=== PATIENT | female | born 1960 | race Caucasian/White ===

== ENCOUNTER 2019-11-22 03:45 | Inpatient (IN) | payer OTHER, SELFPAY ==
[2019-11-22] MEDS ORDERED: hydrALAZINE 20 MG/ML VIAL ONE (04:09)
[2019-11-22] MEDS ORDERED: Nitroglycerin 2% Ointment 1 INCH/1 GM Packet ONE ×2 (04:45→04:47)
[2019-11-22 04:49] LABS: #Eosinphils 0.1 thou/uL (0.0-0.7); #Lymphocytes 1.6 thou/uL (1.20-3.40); #Monocytes 0.7 thou/uL (0.11-0.59); #Neutrophils 7.1 thou/uL (1.40-6.50); %Eosinophils 1.3 % (0.0-10.0); %Lymphocytes 16.3 % (21.0-51.0); %Monocytes 7.3 % (0.0-10.0); %Neutrophils 75.1 % (42.0-75.0); Hemoglobin 12.3 g/dL (12.0-16.0); Mean Corpuscular HGB CONC 33.2 g/dL (32.0-36.0); Mean Corpuscular Hemoglobin 29.5 pg (27.0-31.0); Mean Platelet Volume 7.8 fL (7.4-10.4); Platelet Count 302 thou/uL (130-400); RBC Distribution Width 14.1 % (11.5-14.5); Red Blood Cell (RBC) Count 4.17 mill/uL (4.20-5.40); White Blood Cell (WBC) Count 9.5 thou/uL (4.8-10.8)
[2019-11-22 05:06] LABS: ALT (SGPT) 12 U/L (8-55); AST (SGOT) 10 U/L (5-34); Albumin 3.3 g/dL (3.5-5.0); Alkaline Phosphatase 163 U/L (40-110); Anion Gap 17 mmol/L (10-20); BUN (Urea Nitrogen) 21 mg/dL (9.8-20.1); Bilirubin, Total 0.5 mg/dL (0.2-1.2); Calc. Creatinine Clearance 0 mL/min (70-130); Calcium 9.2 mg/dL (7.8-10.44); Carbon Dioxide 21 mmol/L (22-29); Chloride 104 mmol/L (98-107); Estimated GFR-MDRD 24; Globulin 3.7 g/dL (2.4-3.5); Glucose 194 mg/dL (70-105); Potassium 3.5 mmol/L (3.5-5.1); Sodium 138 mmol/L (136-145)
[2019-11-22] MEDS ORDERED: Furosemide 40 MG/4 ML VIAL ONE (06:03)
[2019-11-22] MEDS ORDERED: Aspirin 325 MG TAB ONE (06:32)
--- NOTE | 2019-11-22 07:38 | RAD ---
PORTABLE CHEST 1 VIEW: DATE: 11/21/2019. TIME: 2:42 AM. HISTORY: Dyspnea. FINDINGS/IMPRESSION: There are changes of median sternotomy. The heart size is normal. There are patchy infiltrates in t he lung delgado bilaterally without pneumothoraces or large effusions. Findings are suspicious for pn eumonia. POS: [facility]
[2019-11-22] MEDS ORDERED: Furosemide 40 MG/4 ML VIAL SLOW IVP SCH (08:30)
[2019-11-22 08:33] LABS: Troponin I 0.033 ng/mL (< 0.028)
[2019-11-22 10:58] LABS: Troponin I 0.036 ng/mL (< 0.028)
[2019-11-22] MEDS: Aspirin 81 mg Enteric Coated Tablet PO SCH (12:29)
[2019-11-22] MEDS: Metoprolol Tartrate 25 MG TAB PO SCH ×2 (12:29→21:25)
[2019-11-22] MEDS: Amlodipine 10 MG TAB PO SCH (12:29)
[2019-11-22] MEDS: Enoxaparin Sodium 30 MG/0.3 ML SYRINGE SC SCH (12:30)
--- NOTE | 2019-11-22 15:05 | PDOC.HHP ---
Hospitalist HPI - History of Present Illness shortness of breath History of Present Illness: 59yo F w/ MHx of CABGx4 (02/2019), HFrEF presents with shortness of breath for 3 days. Underwent CABG in 02/2019 but inconsistent with medications including torsemide due to lifestyle and issues with insurance. 3 days ago, developed progresively worsening shortness of breath associated with orthopnea and paroxysmal nocturnal dyspnea so presented to the ED On encounter, laying comfortably in bed and endorses improved shortness of breath. Denies chills, night sweats, cough, pleuritic pain, abdominal pain, RUQ pain, change in skin color, dysuria, odynuria, blood in urine ED Course: In the ED, hypoxic respiratory distress, lower extremity pitting edema, grossly elevated blood pressure, reduced renal function, and CXR c/w with pulmonary edema. She was admitted for further management Hospitalist ROS - Review of Systems All other systems reviewed; all pertinent +/- noted in HPI/Subj - Medication Medications: Active Medications Generic Name Dose Route Start Last Admin Trade Name Shakaq PRN Reason Stop Dose Admin Amlodipine Besylate 10 mg 11/22/19 09:00 11/22/19 12:29 Norvasc PO 10 mg DAILY LOLIS Administration Aspirin 81 mg 11/22/19 09:00 11/22/19 12:29 Ecotrin PO Not Given DAILY LOLIS Enoxaparin Sodium 30 mg 11/22/19 09:00 11/22/19 12:30 Lovenox SC 30 mg 0900 LOLIS Administration Metoprolol Tartrate 12.5 mg 11/22/19 09:00 11/22/19 12:29 Lopressor PO 12.5 mg BID LOLIS Administration Pantoprazole Sodium 20 mg 11/22/19 09:00 11/22/19 12:29 Protonix PO 20 mg DAILY LOLIS Administration Sertraline HCl 100 mg 11/22/19 09:00 11/22/19 12:29 Zoloft PO 100 mg DAILY LOLIS Administration Sodium Chloride 10 ml 11/22/19 09:00 11/22/19 12:30 Flush - Normal Saline IVF 10 ml Q12HR LOLIS Administration Hospitalist History - Past Medical History Source: patient (s/p CABG (02/2019)) Cardiac: reports: CAD, CHF, HTN Pulmonary: denies: COPD Hepatobiliary: denies: Cirrhosis Endocrine: reports: Diabetes - Past Surgical History Past Surgical History: reports: CABG, Hysterectomy - Family History Family History: reports: diabetes mellitus - Social History Smoking Status: Smokes 11 or more cig/day (40 pack years) Tobacco Type: cigarettes Alcohol: reports: Occassional Drugs: reports: none Living Situation: With Family Activity level: independent ambulation - Exam General Appearance: NAD, awake alert Neck: supple, symmetric, no JVD, no thyromegaly, no lymphadenopathy, no carotid bruit Heart: RRR, no murmur, no gallops, no rubs Respiratory: no wheezes, no rales, no ronchi Respiratory - other findings: bibasilar inspiratory rales Gastrointestinal: soft, non-tender, non-distended, normal bowel sounds, no palpable masses, no hepatomegaly, no splenomegaly, no bruit Extremities: 2+ LE edema Extremities - other findings: to knee level Psychiatric: normal affect, normal behavior, A&O x 3 Hospitalist Results - Labs Result Diagrams: 11/22/19 04:20 11/22/19 04:20 Lab results: WBC 9.5 thou/uL (4.8-10.8) 11/22/19 04:20 Hgb 12.3 g/dL (12.0-16.0) 11/22/19 04:20 Hct 37.1 % (36.0-47.0) 11/22/19 04:20 MCV 89.0 fL (78.0-98.0) 11/22/19 04:20 Plt Count 302 thou/uL (130-400) 11/22/19 04:20 Neutrophils % 75.1 % (42.0-75.0) H 11/22/19 04:20 Sodium 138 mmol/L (136-145) 11/22/19 04:20 Potassium 3.5 mmol/L (3.5-5.1) 11/22/19 04:20 Chloride 104 mmol/L (98-107) 11/22/19 04:20 Carbon Dioxide 21 mmol/L (22-29) L 11/22/19 04:20 BUN 21 mg/dL (9.8-20.1) H 11/22/19 04:20 Creatinine 2.09 mg/dL (0.6-1.1) H 11/22/19 04:20 Glucose 194 mg/dL (70-105) H 11/22/19 04:20 Lactic Acid 1.6 mmol/L (0.5-2.2) 11/22/19 05:48 Calcium 9.2 mg/dL (7.8-10.44) 11/22/19 04:20 Total Bilirubin 0.5 mg/dL (0.2-1.2) 11/22/19 04:20 AST 10 U/L (5-34) 11/22/19 04:20 ALT 12 U/L (8-55) 11/22/19 04:20 Alkaline Phosphatase 163 U/L (40-110) H 11/22/19 04:20 CK-MB (CK-2) 1.0 ng/mL (0-6.6) 11/22/19 04:20 Troponin I 0.036 ng/mL (< 0.028) H 11/22/19 10:16 B-Natriuretic Peptide Less than 10.0 pg/mL (0-100) 11/22/19 04:20 Serum Total Protein 7.0 g/dL (6.0-8.3) 11/22/19 04:20 Albumin 3.3 g/dL (3.5-5.0) L 11/22/19 04:20 - EKG Interpretation EKG: no acute ishcemic changes - Radiology Interpretation Chest x-ray Status: image reviewed by me (bilateral patchy infiltrates c/w pulmonary edema) Hospitalist H&P A/P - Problem (1) Hypertensive emergency Code(s): I16.1 - HYPERTENSIVE EMERGENCY Status: Acute (2) Flash pulmonary edema Code(s): J81.0 - ACUTE PULMONARY EDEMA Status: Acute (3) Nonadherence to medication Code(s): Z91.14 - PATIENT'S OTHER NONCOMPLIANCE WITH MEDICATION REGIMEN Status : Acute (4) Hx of CABG Status: Acute (5) Type 2 diabetes mellitus Status: Acute - Plan Plan: #hypertensive emergency -> flash pulmonary edema, decompenated HF, JHONNY -due to nonadherence (insurance, lifestyle problems) -responded promptly to diuresis -Trop -ve, EKG showing no acute ischemic changes * diuresis, strict I/O * Echo #JHONNY/CKD -no data of previous renal function -likely prerenal/intrarenal due to HF/hypertensive emergency -diurese; follow renal function #HFrEF -may be result of hypertensive emergency or chronic -echo #T2DM mild sliding #Dispo/PPx Full code DVT PPx: lovenox GI PPx: not indicated ELOS: 2 midnights
[2019-11-22] MEDS ORDERED: Torsemide 20 MG TAB PO SCH (15:15)
[2019-11-22] MEDS ORDERED: Dextrose 50% Abboject 50 ML SYRINGE SLOW IVP PRN (15:33)
[2019-11-22] MEDS ORDERED: Dextrose 5% in Water 1,000 ML IV PRN (15:33)
[2019-11-22] MEDS: hydrALAZINE 25 MG TAB PO SCH ×2 (15:59→21:28)
[2019-11-22] MEDS: Potassium Chloride 20 MEQ TAB PO SCH ×2 (16:00→21:24)
[2019-11-22 17:20] LABS: SARS-CoV-2 MS2 Positive; SARS-CoV-2 N Gene Negative; SARS-CoV-2 S Gene Negative; SARS-CoV-2 orf1ab Negative
[2019-11-22] MEDS: Rosuvastatin 20 MG TAB PO SCH (21:25)
[2019-11-23 05:18] LABS: #Eosinphils 0.1 thou/uL (0.0-0.7); #Lymphocytes 1.4 thou/uL (1.20-3.40); #Monocytes 0.5 thou/uL (0.11-0.59); #Neutrophils 6.1 thou/uL (1.40-6.50); %Basophils 0.2 % (0.0-1.0); %Eosinophils 1.8 % (0.0-10.0); %Lymphocytes 17.1 % (21.0-51.0); %Monocytes 6.6 % (0.0-10.0); %Neutrophils 74.4 % (42.0-75.0); Hemoglobin 10.9 g/dL (12.0-16.0); Mean Corpuscular HGB CONC 33.8 g/dL (32.0-36.0); Mean Corpuscular Volume 88.8 fL (78.0-98.0); Mean Platelet Volume 7.6 fL (7.4-10.4); Platelet Count 273 thou/uL (130-400); RBC Distribution Width 14.1 % (11.5-14.5); Red Blood Cell (RBC) Count 3.63 mill/uL (4.20-5.40); White Blood Cell (WBC) Count 8.2 thou/uL (4.8-10.8)
[2019-11-23 05:39] LABS: Anion Gap 16 mmol/L (10-20); BUN (Urea Nitrogen) 24 mg/dL (9.8-20.1); Calc. Creatinine Clearance 32 mL/min (70-130); Calcium 8.9 mg/dL (7.8-10.44); Carbon Dioxide 22 mmol/L (22-29); Chloride 104 mmol/L (98-107); Estimated GFR-MDRD 25; Glucose 129 mg/dL (70-105); Magnesium 1.7 mg/dL (1.6-2.6); Potassium 3.9 mmol/L (3.5-5.1); Sodium 138 mmol/L (136-145)
[2019-11-23] MEDS: Enoxaparin Sodium 30 MG/0.3 ML SYRINGE SC SCH (08:35)
[2019-11-23] MEDS: Amlodipine 10 MG TAB PO SCH (08:36)
[2019-11-23] MEDS: Torsemide 20 MG TAB PO SCH (08:36)
[2019-11-23] MEDS: Metoprolol Tartrate 25 MG TAB PO SCH (08:36)
[2019-11-23] MEDS: hydrALAZINE 25 MG TAB PO SCH ×3 (08:36→20:20)
[2019-11-23] MEDS: Aspirin 81 mg Enteric Coated Tablet PO SCH (08:37)
[2019-11-23] MEDS: HumaLOG 300 UNITS/3 ML VIAL SC PRN ×2 (11:44→16:25)
--- NOTE | 2019-11-23 13:24 | EKG ---
Test Reason : Blood Pressure : / mmHG Vent. Rate : 082 BPM Atrial Rate : 082 BPM P-R Int : 132 ms QRS Dur : 110 ms QT Int : 418 ms P-R-T Axes : 002 042 115 degrees QTc Int : 488 ms Normal sinus rhythm Possible Left atrial enlargement Incomplete left bundle branch block Left ventricular hypertrophy with repolarization abnormality Prolonged QT Abnormal ECG Confirmed by FRANSISCO MAGALLANES ([id number]), communications editor LUDY GÓMEZ ([id number]) on 11/23/2019 1:23:24 PM Referred By: Confirmed By:FRANSISCO MAGALLANES
--- NOTE | 2019-11-23 15:23 | PDOC.HOSPP ---
- Subjective Encounter Date: 11/23/19 Encounter Time: 09:00 Subjective: no overnight events. This morning, feels well and has no complaints. Shortness of breath resolved, lower extremity edema improved - Objective Vital Signs & Weight: Vital Signs (12 hours) Temp Pulse Pulse Pulse Resp BP BP 11/23/19 11:19 97.8 F 63 18 11/23/19 10:42 61 65 160/77 H 169/79 H 11/23/19 10:10 62 63 156/77 H 154/72 H 11/23/19 08:36 66 11/23/19 08:00 11/23/19 07:21 98.5 F 66 22 H BP Pulse Ox Pulse Ox 11/23/19 11:19 164/77 H 96 11/23/19 10:42 98 11/23/19 10:10 11/23/19 08:36 11/23/19 08:00 94 L 11/23/19 07:21 169/81 H 94 L Weight Weight 144 lb 9.6 oz I&O: 11/22/19 11/23/19 11/24/19 06:59 06:59 06:59 Intake Total 660 Output Total 1725 Balance -1065 Result Diagrams: 11/23/19 04:56 11/23/19 04:56 Additional Labs: Accuchecks 11/23/19 11/23/19 11/22/19 10:43 05:23 21:27 POC Glucose 241 H 181 H 172 H 11/22/19 16:54 POC Glucose 159 H Hospitalist ROS - Review of Systems Constitutional: denies: fever, chills, sweats, weakness, malaise, other Respiratory: denies: cough, dry, shortness of breath, hemoptysis, SOB with excertion, pleuritic pain, sputum, wheezing, other Cardiovascular: reports: orthopnea, edema. denies: chest pain, palpitations, paroxysmal noc. dyspnea, light headedness Gastrointestinal: denies: nausea, vomiting, abdominal pain, diarrhea, constipation, melena, hematochezia, other - Medication Medications: Active Medications Generic Name Dose Route Start Last Admin Trade Name Freq PRN Reason Stop Dose Admin Amlodipine Besylate 10 mg 11/22/19 09:00 11/23/19 08:36 Norvasc PO 10 mg DAILY LOLIS Administration Aspirin 81 mg 11/22/19 09:00 11/23/19 08:37 Ecotrin PO 81 mg DAILY LOLIS Administration Enoxaparin Sodium 30 mg 11/22/19 09:00 11/23/19 08:35 Lovenox SC 30 mg 0900 LOLIS Administration Hydralazine HCl 25 mg 11/22/19 15:00 11/23/19 08:36 Apresoline PO 25 mg TID LOLIS Administration Insulin Human Lispro 0 units 11/22/19 15:33 11/23/19 11:44 Humalog SC 3 unit .MILD SLIDING SCALE PRN Administration Mild Correctional Scale Pantoprazole Sodium 20 mg 11/22/19 09:00 11/23/19 08:36 Protonix PO 20 mg DAILY LOLIS Administration Rosuvastatin Calcium 40 mg 11/22/19 21:00 11/22/19 21:25 Crestor PO 40 mg HS LOLIS Administration Sertraline HCl 100 mg 11/22/19 09:00 11/23/19 08:36 Zoloft PO 100 mg DAILY LOLIS Administration Sodium Chloride 10 ml 11/22/19 09:00 11/23/19 08:37 Flush - Normal Saline IVF 10 ml Q12HR LOLIS Administration Torsemide 20 mg 11/23/19 09:00 11/23/19 08:36 Demadex PO 20 mg DAILY LOLIS Administration - Exam General Appearance: NAD, awake alert Heart: RRR, no murmur, no gallops, no rubs Respiratory: CTAB, no wheezes, no rales, no ronchi Gastrointestinal: soft, non-tender, non-distended, normal bowel sounds Extremities: 2+ LE edema Extremities - other findings: improved Psychiatric: normal affect, normal behavior, A&O x 3 Hosp A/P (1) Nonadherence to medication Code(s): Z91.14 - PATIENT'S OTHER NONCOMPLIANCE WITH MEDICATION REGIMEN Status : Acute (2) Hx of CABG Status: Acute (3) Type 2 diabetes mellitus Status: Acute (4) Chronic heart failure Code(s): I50.9 - HEART FAILURE, UNSPECIFIED Status: Acute - Plan #poorly controlled heart failure due to medication nonadherence * improving * no insurance; contacted CM to arrange for aid with medications * COVID ruled out #JHONNY/CKD -no baseline level -continue to follow ELOS: pending CM for medication subsidization
[2019-11-23] MEDS: Carvedilol 6.25 MG TAB PO SCH (16:25)
[2019-11-23] MEDS: Rosuvastatin 20 MG TAB PO SCH (20:19)
[2019-11-23] MEDS ORDERED: HumaLOG 300 UNITS/3 ML VIAL SC PRN (22:23)
[2019-11-24 03:37] VITALS: BMI 23.1
[2019-11-24] MEDS: hydrALAZINE 25 MG TAB PO SCH (08:01)
[2019-11-24] MEDS: Aspirin 81 mg Enteric Coated Tablet PO SCH (08:01)
[2019-11-24] MEDS: Carvedilol 6.25 MG TAB PO SCH (08:03)
[2019-11-24] MEDS: Amlodipine 10 MG TAB PO SCH (08:03)
[2019-11-24] MEDS: Enoxaparin Sodium 30 MG/0.3 ML SYRINGE SC SCH (08:04)
[2019-11-24] MEDS: Torsemide 20 MG TAB PO SCH (08:04)
[2019-11-24 13:46] VITALS: BP 140/67; TEMP 96.9
--- NOTE | 2019-11-25 14:36 | DIS ---
DATE OF ADMISSION: 11/22/2019 DATE OF DISCHARGE: 11/24/2019 HOSPITAL COURSE: Ms. Bowers is a 59-year-old female with a medical history of coronary artery disease status post CABG x4, the last one being in February 2019 and heart failure with reduced ejection fraction, who presented with shortness of breath for 3 days. The patient endorsed nonadherence to her medications including heart failure and blood pressure medications. She was diagnosed with hypertensive emergency and flash pulmonary edema due to nonadherence to medications. The patient's blood pressure was promptly reduced and she was diuresed. Symptoms resolved on the day following admission with the exception of her acute kidney injury, which improved over her inpatient stay. Considering the patient does not have insurance, foster care case manager was consulted and it was recommended that the patient sees a good family practice physician card pending followup with [facility] on Monday in order to continue with assistance to the patient. DISCHARGE MEDICATIONS: New medications: Coreg 12.5 b.i.d. Continued medications: 1. Potassium. 2. Rosuvastatin. 3. Pantoprazole. 4. Torsemide. 5. Sertraline. 6. Aspirin. 7. Amlodipine. Discontinued medications: Metoprolol. Job ID: [id number]
--- NOTE | 2019-11-26 04:50 | PQF ---
WONROYALRYLEY, HOSEA [id number] CLINICAL DOCUMENTATION CLARIFICATION FORM: POST DISCHARGE Addendum to original discharge summary date: ____ Late entry note date: __ DATE: 11/26/19 ATTN: Hosea Clark Please exercise your independent, professional judgment in responding to the clarification form. Clinical indicators are provided on the bottom of this form for your review Can you please further clarify the etiology of SOB? Please check appropriate box(s): [ x ] Acute on chronic systolic congestive heart failure [ ] Acute hypoxic respiratory failure [ ] Pneumonia [ ] SOB due to all diagnosis above [ ] Other diagnosis please specify [ ] Unable to determine For continuity of documentation, please document condition throughout progress notes and discharge summary. Thank You. CLINICAL INDICATORS - SIGNS / SYMPTOMS / LABS H and P pg.1- HFrEF presents with shortness of breath for 3 days H and P pg.1- hypoxic respiratory distress, lower extremity pitting edema H and P pg.1- CXR c/w pulmonary edema Laboratory- BNP less than 10 H and P pg.5- flash pulmonary edema, compensated HF Chest X ray- Findings are suspicious for pneumonia Hospitalist PN pg.5- Chronic heart failure Hospitalist PN pg.5-poorly controlled heart failure due to medication non adherence Echocardiogram- EF 35-40% RISK FACTORS Hypertensive emergency- H and P pg.5 Non adherence to medication-H and P pg.5 DM-H and P pg.5 JHONNY/CKD-H and P pg.5 Smoker ED Notes 11/21 TREATMENTS: Chest X ray 11/21 Electrocardiogram, 11/21 Echocardiogram 11/22 IV Fluids- MAR Levaquin 750mg IV- MAR Furosemide Lasix 40mg IV-MAR O2 supplementation-HP 11/21 (This form is maintained as a part of the permanent medical record) 2014 [employer]. All Rights Reserved [place] TIARA
== END 2019-11-24 14:19 | disposition home or self-care (01) | DRG 291 ==
LOC: ERS 03:45 → 2SW 06:08 → OBSVTOIN 06:08
PROVIDERS: ADMIT Internal Medicine; ATTEND Internal Medicine
DX: I13.0 Hypertensive heart and chronic kidney disease with heart failure and stage 1 through stage 4 chronic kidney disease, or unspecified chronic kidney disease (principal); I50.23 Acute on chronic systolic (congestive) heart failure; I16.1 Hypertensive emergency; N17.9 Acute kidney failure, unspecified; E11.22 Type 2 diabetes mellitus with diabetic chronic kidney disease; E78.5 Hyperlipidemia, unspecified; N18.9 Chronic kidney disease, unspecified; F17.210 Nicotine dependence, cigarettes, uncomplicated; Z20.828 Contact with and (suspected) exposure to other viral communicable diseases; Z95.1 Presence of aortocoronary bypass graft; Z90.710 Acquired absence of both cervix and uterus; Z79.82 Long term (current) use of aspirin; Z79.899 Other long term (current) drug therapy; Z91.14 Patient's other noncompliance with medication regimen
CPT/HCPCS: 36415; 36416; 71045; 80048; 80053; 82553; 83605; 83735; 83880; 84484; 85025; 87040; 87635; 93005; 93306; 96365; 96375; J0360; J1650; J1940; J1956; U0003

== ENCOUNTER 2019-12-08 07:15 | Emergency (ER) | payer SELFPAY ==
[2019-12-08] MEDS ORDERED: Nitroglycerin 0.4 MG TAB 1 EACH ONE (07:34)
[2019-12-08] MEDS ORDERED: Furosemide 40 MG/4 ML VIAL ONE (07:34)
[2019-12-08] MEDS ORDERED: Nitroglycerin 2% Ointment 1 INCH/1 GM Packet ONE (07:34)
[2019-12-08] MEDS ORDERED: Aspirin Chewable 81 MG TAB ONE (07:34)
[2019-12-08 07:57] LABS: #Eosinphils 0.2 thou/uL (0.0-0.7); #Lymphocytes 1.9 thou/uL (1.20-3.40); #Monocytes 0.5 thou/uL (0.11-0.59); #Neutrophils 6.3 thou/uL (1.40-6.50); %Basophils 0.2 % (0.0-1.0); %Eosinophils 1.9 % (0.0-10.0); %Lymphocytes 21.7 % (21.0-51.0); %Monocytes 5.6 % (0.0-10.0); %Neutrophils 70.6 % (42.0-75.0); Hemoglobin 10.3 g/dL (12.0-16.0); Mean Corpuscular HGB CONC 33.9 g/dL (32.0-36.0); Mean Corpuscular Hemoglobin 29.3 pg (27.0-31.0); Mean Corpuscular Volume 86.4 fL (78.0-98.0); Mean Platelet Volume 7.3 fL (7.4-10.4); Platelet Count 297 thou/uL (130-400); RBC Distribution Width 14.7 % (11.5-14.5); Red Blood Cell (RBC) Count 3.51 mill/uL (4.20-5.40); White Blood Cell (WBC) Count 8.9 thou/uL (4.8-10.8)
[2019-12-08 08:17] LABS: ALT (SGPT) 11 U/L (8-55); AST (SGOT) 12 U/L (5-34); Albumin 3.2 g/dL (3.5-5.0); Alkaline Phosphatase 134 U/L (40-110); Anion Gap 14 mmol/L (10-20); BUN (Urea Nitrogen) 25 mg/dL (9.8-20.1); Bilirubin, Total 0.4 mg/dL (0.2-1.2); Calc. Creatinine Clearance 0 mL/min (70-130); Calcium 8.6 mg/dL (7.8-10.44); Carbon Dioxide 23 mmol/L (22-29); Chloride 106 mmol/L (98-107); Estimated GFR-MDRD 32; Globulin 3.4 g/dL (2.4-3.5); Glucose 161 mg/dL (70-105); Potassium 3.7 mmol/L (3.5-5.1); Protein, Total 6.6 g/dL (6.0-8.3); Sodium 139 mmol/L (136-145)
[2019-12-08 08:39] LABS: CKMB 0.9 ng/mL (0-6.6)
--- NOTE | 2019-12-08 09:05 | RAD ---
PORTABLE CHEST 1 VIEW: Date: 12/08/2019 Time: 0715 hours HISTORY: Chest pain, congestive heart failure. COMPARISON: 11/22/2019. FINDINGS/IMPRESSION: There are changes of median sternotomy. The heart size is enlarged. Patchy infiltrates in the left lo wer lung noted on the previous exam demonstrate interval improvement without complete resolution. Inf iltrates in the right lung show near complete resolution. A small left pleural effusion may be presen t. No pneumothoraces seen. POS: OFF
== END 2019-12-08 11:45 | disposition home or self-care (01) ==
LOC: ERS 07:15
DX: I11.0 Hypertensive heart disease with heart failure (principal); I50.9 Heart failure, unspecified; E11.9 Type 2 diabetes mellitus without complications; F17.210 Nicotine dependence, cigarettes, uncomplicated; E78.6 Lipoprotein deficiency
CPT/HCPCS: 71045; 80053; 82553; 83880; 84484; 85025; 93005; 96374; J1940

== ENCOUNTER 2019-12-19 09:12 | Observation (INO) | payer SELFPAY ==
[2019-12-19 09:38] LABS: #Eosinphils 0.2 thou/uL (0.0-0.7); #Lymphocytes 1.4 thou/uL (1.20-3.40); #Monocytes 0.5 thou/uL (0.11-0.59); #Neutrophils 4.3 thou/uL (1.40-6.50); %Basophils 0.6 % (0.0-1.0); %Eosinophils 2.7 % (0.0-10.0); %Lymphocytes 21.2 % (21.0-51.0); %Monocytes 7.5 % (0.0-10.0); Hemoglobin 11.3 g/dL (12.0-16.0); Mean Corpuscular Volume 82.8 fL (78.0-98.0); Mean Platelet Volume 7.4 fL (7.4-10.4); Platelet Count 205 thou/uL (130-400); RBC Distribution Width 14.5 % (11.5-14.5); Red Blood Cell (RBC) Count 3.91 mill/uL (4.20-5.40); White Blood Cell (WBC) Count 6.4 thou/uL (4.8-10.8)
[2019-12-19 10:03] LABS: ALT (SGPT) 11 U/L (8-55); AST (SGOT) 11 U/L (5-34); Albumin 3.5 g/dL (3.5-5.0); Alkaline Phosphatase 117 U/L (40-110); Anion Gap 13 mmol/L (10-20); BUN (Urea Nitrogen) 22 mg/dL (9.8-20.1); Bilirubin, Total 0.3 mg/dL (0.2-1.2); CK (CPK) 43 U/L (29-168); Calc. Creatinine Clearance 0 mL/min (70-130); Calcium 9.2 mg/dL (7.8-10.44); Carbon Dioxide 28 mmol/L (22-29); Chloride 98 mmol/L (98-107); Estimated GFR-MDRD 28; Globulin 3.6 g/dL (2.4-3.5); Glucose 281 mg/dL (70-105); Potassium 3.4 mmol/L (3.5-5.1); Protein, Total 7.1 g/dL (6.0-8.3); Sodium 136 mmol/L (136-145)
[2019-12-19 10:26] LABS: CKMB 0.9 ng/mL (0-6.6)
[2019-12-19] MEDS ORDERED: Furosemide 40 MG/4 ML VIAL ONE (11:02)
[2019-12-19] MEDS ORDERED: Nitroglycerin 2% Ointment 1 INCH/1 GM Packet ONE (11:02)
[2019-12-19] MEDS ORDERED: Aspirin Chewable 81 MG TAB ONE (11:02)
--- NOTE | 2019-12-19 11:17 | RAD ---
FRONTAL RADIOGRAPH CHEST: DATE: 12/19/2019. COMPARISON: 12/08/2019. HISTORY: Chest pain. FINDINGS: Midline sternotomy wires and mediastinal clips are present. No pneumothorax or pleural fluid is seen and there is no focal consolidation or alveolar edema. IMPRESSION: No acute findings. POS: [facility]
[2019-12-19 13:52] LABS: Troponin I 0.023 ng/mL (< 0.028)
[2019-12-19] MEDS ORDERED: Ondansetron ODT 4 MG TAB SL PRN (14:17)
[2019-12-19] MEDS ORDERED: Ondansetron PF 4 MG/2 ML Vial IVP PRN (14:17)
[2019-12-19] MEDS ORDERED: Acetaminophen 325 MG TAB PO PRN ×2 (14:17→14:26)
[2019-12-19] MEDS ORDERED: hydrALAZINE 20 MG/ML VIAL SLOW IVP PRN (14:20)
[2019-12-19] MEDS ORDERED: Ondansetron ODT 4 MG TAB PO PRN (14:26)
[2019-12-19] MEDS ORDERED: Potassium Chloride 20 MEQ TAB PO SCH (14:30)
[2019-12-19] MEDS: Nicotine 21 MG PATCH TD SCH (15:14)
--- NOTE | 2019-12-19 15:44 | HP ---
PRIMARY CARE PROVIDER: Dr. Medina Morales. CHIEF COMPLAINT: Fluid retention. HISTORY OF PRESENT ILLNESS: Ms. Bowers is a pleasant 59-year-old lady, who was seen at [facility] on December 19, 2019. She was hospitalized at this facility from November 21 to 23 November of this year for congestive heart failure. The patient presented twice to the emergency room following discharge, today being the second occasion. She reports that over the last couple of weeks, she has been having progressively worsening lower extremity edema. She reports shortness of breath with exertion as well as orthopnea. She denies any fever or chills. She denies any cough. She denies any nausea or vomiting. She contacted her primary care provider's office, who increased her diuretic dose, but it did not seem to help. She therefore presented to the emergency room. REVIEW OF SYSTEMS: All systems were reviewed and found to be negative except for the pertinent positives mentioned above. PAST MEDICAL HISTORY: Coronary artery disease, status post coronary artery bypass graft; chronic kidney disease stage 4; chronic systolic congestive heart failure, ejection fraction 35% to 40% on 2D echocardiogram done on November 23, 2019; hypertension; and dyslipidemia. SURGICAL HISTORY: Coronary artery bypass graft, hysterectomy. SOCIAL HISTORY: The patient smokes one pack of cigarettes a day. She denies alcohol use or recreational drug use. FAMILY HISTORY: Significant for myocardial infarction in several relatives. ALLERGIES: CEPHALEXIN. CURRENT MEDICATIONS: These need to be clarified, but in the past, she was on; 1. Amlodipine. 2. Aspirin. 3. Protonix. 4. Rosuvastatin. 5. Sertraline. 6. Torsemide. 7. Coreg. 8. Potassium. PHYSICAL EXAMINATION: GENERAL: On examination, Ms. Bowers is awake and alert, not in acute distress. VITAL SIGNS: Blood pressure is 186/93, pulse 54, respiratory rate 20, and oxygen saturation 99% on room air. She is afebrile. EYES: No scleral icterus. No conjunctival pallor. ENT: Moist mucosal membranes. No oropharyngeal erythema or exudates. NECK: Supple, nontender. Trachea is midline. There is no jugular venous distention. RESPIRATORY: Accessory muscles of breathing are not active. Chest wall movements are symmetric bilaterally. LUNGS: Reveals bibasilar crackles. CARDIOVASCULAR: S1 and S2 are heard, regular. Peripheral pulses palpable. ABDOMEN: Soft, nontender. Bowel sounds are heard. NEUROLOGIC: Cranial nerves 2 through 12 are intact. MUSCULOSKELETAL: Power is 5/5 in all 4 extremities. SKIN: She has bilateral lower extremity edema. LYMPHATIC: No cervical lymphadenopathy. PSYCHIATRIC: Normal mood. Normal affect. The patient is oriented to person and place, not to time. LABORATORY DATA AND IMAGING STUDIES: Ms. Bowers's labs and investigations were reviewed. I reviewed her electrocardiogram, which shows sinus bradycardia, no ST changes to suggest an acute coronary syndrome. I also reviewed her chest x-ray, which does not show pulmonary infiltrates or interstitial edema. She has normal white count, normal platelet count, normocytic anemia with hemoglobin 11.3. Normal sodium; decreased potassium of 3.4; elevated blood urea nitrogen of 22; elevated creatinine of 1.86, creatinine was 1.67 on December 08, 2019 and 2.02 on November 23, 2019. Alkaline phosphatase is mildly elevated at 117, it was 134 on December 08, 2019. Indeterminate troponin-I of 0.037, subsequently trending down to 0.023. Elevated BNP of 271.6, BNP was 720 on December 08, 2019. ASSESSMENT AND PLAN: Ms. Bowers is a pleasant 59-year-old lady, who was seen at [facility] on December 19, 2019. Her problem list includes: 1. Acute on chronic systolic congestive heart failure, [place] Heart Association class III: Ms. Bowers is presenting with congestive heart failure exacerbation. Her main symptoms appear to be edema of the lower extremities. She is not hypoxic on room air. At this point in time, I will transition her to intravenous diuretics for a day or so. Cardiology Service will be consulted for opinion and help with management. She reports that she sees a termite control representative here, but is not sure as to the name. 2. Hypertension: Her blood pressures are elevated. I will continue her home medications once clarified. We will add p.r.n. IV hydralazine. 3. Hypokalemia: Replace potassium and recheck potassium level. 4. Dyslipidemia: Continue home medications once clarified. Many thanks for allowing me to participate in your patient's care. Please feel free to contact me with any questions or concerns. LEVEL OF RISK: High. LEVEL OF COMPLEXITY: High. Job ID: [id number]
[2019-12-19] MEDS ORDERED: Furosemide 40 MG/4 ML VIAL SLOW IVP SCH (16:00)
[2019-12-19 16:54] LABS: Troponin I 0.039 ng/mL (< 0.028)
[2019-12-19] MEDS: Isosorbide Dinitrate 20 MG TAB PO SCH (20:38)
[2019-12-19] MEDS ORDERED: Non-Formulary Item 1 EACH (Rosuvastatin Calcium [Rosuvastatin Calcium] 40 MG) PO SCH (21:00)
[2019-12-19] MEDS ORDERED: hydrALAZINE 25 MG TAB PO SCH (21:00)
[2019-12-19] MEDS ORDERED: Rosuvastatin 20 MG TAB PO SCH (21:00)
--- NOTE | 2019-12-19 22:35 | CON ---
DATE OF CONSULTATION: HISTORY OF PRESENT ILLNESS: The patient is a 59-year-old woman, who presents for evaluation of dyspnea and lower extremity swelling. The patient has a history of coronary artery bypass surgery and congestive heart failure. She states that she presented with congestive heart failure at the end of last year in [place]. The patient subsequently underwent coronary artery bypass surgery x4. The patient has been subsequently on medical therapy and had difficulty with dyspnea. She underwent a recent echocardiogram, which revealed a moderate decrease in left ventricular systolic function. The patient unfortunately continues to smoke. She presented with lower extremity dyspnea and lower extremity weakness. The patient denied having any chest discomfort. PAST MEDICAL HISTORY: 1. Congestive heart failure. 2. Diabetes mellitus. 3. Chronic renal failure. 4. Hypertension. PAST SURGICAL HISTORY: Coronary artery bypass surgery and hysterectomy. SOCIAL HISTORY: Long history of tobacco abuse. FAMILY HISTORY: No strong family history of coronary artery disease. ALLERGIES: KEFLEX. MEDICATIONS: 1. Metoprolol 25 daily. 2. Protonix 20 daily. 3. Norvasc 10 daily. 4. Sertraline 100 daily. 5. Crestor 40 at bedtime. 6. Demadex 20 daily. 7. Potassium 10 daily. 8. Coreg 12.5 b.i.d. 9. Aspirin 81 daily. REVIEW OF SYSTEMS: Ten-point system otherwise unremarkable. PHYSICAL EXAMINATION: GENERAL: Thin woman, in no acute distress. VITAL SIGNS: Blood pressure 181/83. NECK: No jugular venous distention. LUNGS: Clear to auscultation. HEART: Regular rate and rhythm. Normal S1 and S2. No murmurs. ABDOMEN: Nondistended. EXTREMITIES: Showed mild bilateral edema. VASCULAR: Radial pulse 2+. LABORATORY DATA: Sodium 136, potassium 3.4, chloride 98, bicarbonate 28, BUN 22 , and creatinine 1.86. Her BNP is 271. White blood count 6.4, hemoglobin 11.3, hematocrit 32.4, platelets 205. EKG revealed marked sinus bradycardia with left ventricular hypertrophy and poor R-wave progression, suggestive of acute anterior infarct. IMPRESSION: 1. Congestive heart failure. 2. History of coronary artery bypass surgery x4. 3. Marked bradycardia. 4. Ischemic cardiomyopathy. 5. Renal failure. 6. Dyslipidemia. 7. Tobacco abuse. This patient presents with mild congestive heart failure. She has been diuresed with Lasix. The patient needs to be on Coreg, but she has marked bradycardia. Would discontinue the metoprolol. We will hold the Coreg and we will try lower dose Coreg at a later time. Would discontinue Norvasc as this is contraindicated in patients with ischemic cardiomyopathy. We will start the patient on hydralazine and Isordil since she has significant chronic renal failure. We will follow this patient with you through her hospitalization. Job ID: [id number] MTDD
[2019-12-20 05:03] LABS: #Basophils 0.1 thou/uL (0.0-0.2); #Eosinphils 0.1 thou/uL (0.0-0.7); #Lymphocytes 1.2 thou/uL (1.20-3.40); #Monocytes 0.4 thou/uL (0.11-0.59); #Neutrophils 4.1 thou/uL (1.40-6.50); %Basophils 0.9 % (0.0-1.0); %Eosinophils 2.1 % (0.0-10.0); %Neutrophils 69.1 % (42.0-75.0); Hemoglobin 10.6 g/dL (12.0-16.0); Mean Corpuscular HGB CONC 33.8 g/dL (32.0-36.0); Mean Corpuscular Hemoglobin 27.6 pg (27.0-31.0); Mean Corpuscular Volume 81.6 fL (78.0-98.0); Mean Platelet Volume 7.6 fL (7.4-10.4); Platelet Count 202 thou/uL (130-400); RBC Distribution Width 14.5 % (11.5-14.5); Red Blood Cell (RBC) Count 3.84 mill/uL (4.20-5.40); White Blood Cell (WBC) Count 5.9 thou/uL (4.8-10.8)
[2019-12-20 05:23] LABS: Anion Gap 11 mmol/L (10-20); BUN (Urea Nitrogen) 25 mg/dL (9.8-20.1); Calc. Creatinine Clearance 30 mL/min (70-130); Carbon Dioxide 29 mmol/L (22-29); Chloride 101 mmol/L (98-107); Estimated GFR-MDRD 26; Glucose 177 mg/dL (70-105); Potassium 3.6 mmol/L (3.5-5.1); Sodium 137 mmol/L (136-145)
[2019-12-20 05:30] VITALS: BMI 21.4
[2019-12-20] MEDS ORDERED: Furosemide 40 MG/4 ML VIAL SLOW IVP SCH (06:00)
[2019-12-20] MEDS ORDERED: Enoxaparin Sodium 40 MG/0.4 ML SYRINGE SC SCH (09:00)
[2019-12-20] MEDS ORDERED: Amlodipine 10 MG TAB PO SCH (09:00)
[2019-12-20] MEDS ORDERED: Aspirin 81 mg Enteric Coated Tablet PO SCH (09:00)
[2019-12-20] MEDS ORDERED: Potassium Chloride 10 MEQ TAB PO SCH (09:00)
[2019-12-20] MEDS: hydrALAZINE 25 MG TAB PO SCH ×2 (09:09→17:06)
[2019-12-20] MEDS: Isosorbide Dinitrate 20 MG TAB PO SCH ×2 (09:11→17:07)
[2019-12-20] MEDS ORDERED: Carvedilol 3.125 MG TAB PO SCH ×2 (10:15→17:00)
[2019-12-20 11:36] VITALS: TEMP 98.8
[2019-12-20] MEDS: Nicotine 21 MG PATCH TD SCH (17:07)
[2019-12-20 17:08] VITALS: BP 156/74
--- NOTE | 2019-12-21 04:03 | DIS ---
DATE OF ADMISSION: 12/19/2019 DATE OF DISCHARGE: 12/20/2019 PRIMARY CARE PROVIDER: Dr. Medina Morales, DISCHARGE DIAGNOSES: 1. Acute on chronic systolic congestive heart failure, [place] Heart Association class III. 2. Hypokalemia. 3. Bradycardia. 4. Acute on chronic stage 4 renal insufficiency. CONDITION OF PATIENT ON THE DAY OF DISCHARGE: Stable. I assessed Ms. Bowers on the day of discharge. She denies any chest pain or shortness of breath. Vital signs are stable. S1 and S2 are heard, regular. Lungs are clear to auscultation bilaterally. CONSULTATIONS DURING THIS HOSPITALIZATION: Cardiology, Dr. Waller. DISCHARGE MEDICATIONS: 1. Aspirin 81 mg daily. 2. Sertraline 100 mg daily. 3. Nicoderm 21 mg patch daily. 4. Amlodipine 10 mg daily. 5. Coreg 3.125 mg 2 times a day, dose was decreased during this hospitalization. 6. Metoprolol has been discontinued. 7. Hydralazine 50 mg 3 times a day. 8. Isosorbide dinitrate 20 mg 3 times a day. 9. Protonix 20 mg daily. 10. Potassium chloride 10 mEq daily. 11. Rosuvastatin 40 mg at bedtime. 12. Torsemide 20 mg daily. HOSPITAL COURSE: Ms. Bowers is a pleasant 59-year-old lady, who was admitted to [facility] on December 19, 2019 for congestive heart failure exacerbation. She was seen by Cardiology Service. She improved with intravenous diuretics. Her creatinine worsened secondary to intravenous diuretics. She has been transitioned to oral diuretics. She is advised to follow up with her primary care provider in 3 days and have her creatinine and electrolytes checked in 5 to 7 days. POST-ACUTE CARE FOLLOWUP: With primary care provider in 3 days and with Cardiology Service in 10 days. ACTIVITY: No restrictions. DIET: Heart healthy, low-sodium. DISCHARGE DISPOSITION: Home. Many thanks for allowing me to participate in your patient's care. Please feel free to contact me with any questions or concerns. On December 19, she had sodium 137, potassium 3.6, blood urea nitrogen 25, creatinine 2.00, white count 5900, hemoglobin 10.6, and platelet count 202,000. Job ID: [id number]
[2019-12-21] MEDS ORDERED: Torsemide 20 MG TAB PO SCH (09:00)
--- NOTE | 2019-12-28 10:56 | EKG ---
Test Reason : Blood Pressure : / mmHG Vent. Rate : 050 BPM Atrial Rate : 050 BPM P-R Int : 172 ms QRS Dur : 118 ms QT Int : 556 ms P-R-T Axes : 000 -03 101 degrees QTc Int : 506 ms Sinus bradycardia Left ventricular hypertrophy with QRS widening and repolarization abnormality Anterior infarct , age undetermined Prolonged QT Abnormal ECG Confirmed by JOSH CALVILLO DO ([id number]), online editor LUDY GÓMEZ ([id number]) on 12/28/2019 10:56:17 AM Referred By: Confirmed By:JOSH CALVILLO DO
== END 2019-12-20 17:26 | disposition home or self-care (01) ==
LOC: ERS 09:12 → 2SE 11:50
PROVIDERS: ADMIT Internal Medicine; ATTEND Internal Medicine
DX: I13.0 Hypertensive heart and chronic kidney disease with heart failure and stage 1 through stage 4 chronic kidney disease, or unspecified chronic kidney disease (principal); E11.22 Type 2 diabetes mellitus with diabetic chronic kidney disease; N18.4 Chronic kidney disease, stage 4 (severe); I50.23 Acute on chronic systolic (congestive) heart failure; N17.9 Acute kidney failure, unspecified; E87.6 Hypokalemia; R00.1 Bradycardia, unspecified; I25.5 Ischemic cardiomyopathy; E78.5 Hyperlipidemia, unspecified; I25.10 Atherosclerotic heart disease of native coronary artery without angina pectoris; F17.210 Nicotine dependence, cigarettes, uncomplicated; Z95.1 Presence of aortocoronary bypass graft; Z79.82 Long term (current) use of aspirin; Z79.899 Other long term (current) drug therapy; Z88.1 Allergy status to other antibiotic agents
CPT/HCPCS: 36415; 71045; 80048; 80053; 82550; 82553; 83880; 84484; 85025; 93005; 93798; 96372; 96374; 96375; 96376; G0378; J0360; J1650; J1940

== ENCOUNTER 2020-02-27 09:08 | Observation (INO) | payer OTHER, SELFPAY ==
--- NOTE | 2020-02-27 09:36 | RAD ---
EXAM: CHEST ONE VIEW HISTORY: Near-syncope COMPARISON: 12/19/2011 FINDINGS: Postoperative changes related to CABG are again noted. Cardiac silhouette is magnified by projection and patient rotation but stable in size. Pulmonary vasculature is within normal limits but The lungs are clear. No interval change from prior study. IMPRESSION: No acute cardiopulmonary process.
[2020-02-27 09:43] LABS: #Eosinphils 0.2 thou/uL (0.0-0.7); #Lymphocytes 1.5 thou/uL (1.20-3.40); #Monocytes 0.7 thou/uL (0.11-0.59); #Neutrophils 5.8 thou/uL (1.40-6.50); %Basophils 0.4 % (0.0-1.0); %Lymphocytes 18.9 % (21.0-51.0); %Monocytes 8.1 % (0.0-10.0); %Neutrophils 70.6 % (42.0-75.0); Mean Corpuscular HGB CONC 36.3 g/dL (32.0-36.0); Mean Corpuscular Hemoglobin 28.2 pg (27.0-31.0); Mean Corpuscular Volume 77.9 fL (78.0-98.0); Platelet Count 153 thou/uL (130-400); Red Blood Cell (RBC) Count 4.61 mill/uL (4.20-5.40); White Blood Cell (WBC) Count 8.2 thou/uL (4.8-10.8)
[2020-02-27] MEDS ORDERED: hydrALAZINE 20 MG/ML VIAL ONE ×2 (09:49→11:35)
[2020-02-27 10:06] LABS: Acetaminophen Less than 6.0 mcg/mL (10.0-30.0); Alcohol Less than 10 mg/dL (Less than 10); Salicylate Less than 8.0 mg/dL (15.0-30.0)
[2020-02-27 10:15] LABS: ALT (SGPT) 9 U/L (8-55); AST (SGOT) 18 U/L (5-34); Albumin 3.8 g/dL (3.5-5.0); Alkaline Phosphatase 111 U/L (40-110); Anion Gap 18 mmol/L (10-20); BUN (Urea Nitrogen) 23 mg/dL (9.8-20.1); Bilirubin, Total 0.4 mg/dL (0.2-1.2); Calc. Creatinine Clearance 0 mL/min (70-130); Calcium 8.9 mg/dL (7.8-10.44); Carbon Dioxide 25 mmol/L (22-29); Chloride 100 mmol/L (98-107); Estimated GFR-MDRD 28; Globulin 3.5 g/dL (2.4-3.5); Glucose 161 mg/dL (70-105); Potassium 3.6 mmol/L (3.5-5.1); Protein, Total 7.3 g/dL (6.0-8.3); Sodium 139 mmol/L (136-145)
[2020-02-27 10:22] LABS: MDiff Complete? YES; Microcytosis SLIGHT = 6-15 cells (100X) (0-5/hpf); Platelet Morphology Comment Appears Adequate; Polychromasia SLIGHT = 2-3 cells (100X) (0-2/hpf)
[2020-02-27 10:25] LABS: CKMB 0.5 ng/mL (0-6.6)
--- NOTE | 2020-02-27 10:30 | CT ---
CT BRAIN WITHOUT CONTRAST: Date: 02/27/2020 HISTORY: Weakness, fall. No loss of consciousness. COMPARISON: None. FINDINGS: There are old infarctions in the left posterior parietal lobe and the basal ganglia. The ventricular size is appropriate and the basilar cisterns are patent. There is an old lacunar infarction in the ri ght periventricular white matter. No evidence of acute infarct, hemorrhage, midline shift, or abnorma l extra-axial fluid collections are seen. The bony calvarium is intact. The visualized paranasal sinu ses and mastoid air cells are well aerated. There is an old fracture of the right lamina papyracea. IMPRESSION: No CT evidence of acute process POS: BEL
[2020-02-27 10:49] LABS: Bacteria/HPF None Seen HPF (None Seen); Bilirubin Negative (Negative); Blood, Urine Negative (Negative); Clarity Clear (Clear); Glucose, Urine (Dipstick) Normal (Negative); Ketone, Urine Negative (Negative); Leukocyte Negative Leu/uL (Negative); Nitrite Negative (Negative); Protein, Urine (Dipstick) 200 mg/dL (Neg-Trace); RBC/HPF 0-3 HPF (0-3); Specific Gravity, Urine 1.005 (1.002-1.036); Squamous Epithelial 0-3 HPF (0-3); Urobilinogen Normal mg/dL (Less than 2); WBC/HPF None Seen HPF (0-3); pH, Urine 6.5 (5.0-9.0)
[2020-02-27 11:05] LABS: Amphetamine Not Detected (NotDetected); Barbiturates Screen Not Detected (NotDetected); Benzodiazepine Screen Not Detected (NotDetected); Cocaine Metabolite Screen Not Detected (NotDetected); Medtox Reader # READER 1; Methadone Not Detected (NotDetected); Methamphetamine Not Detected (NotDetected); Opiate Screen Not Detected (NotDetected); Oxycodone Screen Not Detected (NotDetected); Phencyclidine (PCP) Not Detected (NotDetected); THC/Cannabinoid Screen Not Detected (NotDetected); Tricyclic Screen Not Detected (NotDetected)
[2020-02-27 11:06] LABS: Medtox Control Line Valid? VALID (VALID)
[2020-02-27 13:11] LABS: Troponin I 0.038 ng/mL (< 0.028)
[2020-02-27] MEDS ORDERED: cloNIDine 0.1 MG TAB PO PRN (14:44)
[2020-02-27] MEDS ORDERED: Benzonatate 100 MG CAP PO PRN (14:44)
[2020-02-27] MEDS ORDERED: Ondansetron ODT 4 MG TAB PO PRN (14:44)
[2020-02-27] MEDS ORDERED: Acetaminophen 325 MG TAB PO PRN (14:44)
[2020-02-27] MEDS ORDERED: hydrALAZINE 20 MG/ML VIAL SLOW IVP PRN (14:44)
[2020-02-27 14:48] VITALS: BMI 20.4
[2020-02-27 15:37] LABS: Troponin I 0.038 ng/mL (< 0.028)
--- NOTE | 2020-02-27 15:39 | MRI ---
Exam: Brain MRI without contrast HISTORY: Transient ischemic attack COMPARISON: None FINDINGS: Calvarial marrow signal intensity: Appropriate T1 signal Gradient echo sequence: No hemorrhage Brain parenchyma: No mass, mass effect or midline shift. Brain volume, age-appropriate. Cortical caicedo-white matter differentiation: Exception of the left temporal lobe, cortical caicedo-white matter differentiation is preserved. There is encephalomalacia and gliosis in the left temporal lobe. Component of laminar necrosis with intrinsic T1 hyperintensity is also identified Restricted diffusion: Central arterial flow voids are maintained. Absent restricted diffusion White matter signal intensities: T2, FLAIR white matter hyperintensities due to chronic small vessel ischemic changes. Cavitary lacunar infarcts in the left and right tadeo radiata and left caudate nucleus. Midbrain and conchita: Nonspecific T2 and FLAIR hyperintensities which are presumed to be due to chronic small vessel ischemic change. Sinuses: Adequate aeration of the paranasal sinuses and mastoid air cells. IMPRESSION: 1. Absent restricted diffusion. No acute infarction 2. Chronic small vessel ischemic changes white matter. Remote cavitary lacunar infarcts in the left a nd right deep white matter as well as left caudate nucleus. 3. Encephalomalacia and gliosis due to remote insult in the left temporal lobe.
--- NOTE | 2020-02-27 16:11 | ULT ---
ULTRASOUND DOPPLER DUPLEX CAROTID: DATE: 02/27/2020 HISTORY: 59-year-old female with history of cerebral infarction presents with TIA. TECHNIQUE: Grayscale, color-flow, and spectral analysis, of major arteries of neck. FINDINGS: RIGHT: Atherosclerotic plaque:Moderate to severely calcified plaque at right carotid bulb causing shadowing, completely obscuring the lumen of the bulb. Peak systolic and end diastolic velocities: CCA:60 cm/s, 10 cm/s ICA:80 cm/s, 30 cm/s ICA/CCA ratio:1.7 Vertebral artery flow:Antegrade LEFT: Atherosclerotic plaque:Mild at proximal left internal carotid. Peak systolic and end diastolic velocities: CCA:95 cm/s, 20 cm/s ICA:80 cm/s, 30 cm/s ICA/CCA ratio:0.9 Vertebral artery flow:Antegrade IMPRESSION: 1) heavily calcified atheromatous plaque at origin of right internal carotid at carotid bulb causing shadowing, completely obscuring the lumen at that level. Cannot evaluate degree of stenosis here. Consider CT Arteriogram of neck with contrast 2) no evidence of hemodynamically significant stenosis elsewhere.
[2020-02-27] MEDS: hydrALAZINE 25 MG TAB PO SCH ×2 (16:41→19:59)
[2020-02-27] MEDS: Isosorbide Dinitrate 20 MG TAB PO SCH ×2 (16:41→19:59)
--- NOTE | 2020-02-27 17:13 | CON ---
NEUROLOGY CONSULTATION DATE OF CONSULTATION: 02/27/2020 REASON FOR CONSULTATION: Status post fall/dizziness. HISTORY OF PRESENT ILLNESS: Ms. Samira Bowers is a 59-year-old female with medical history significant for hypertension, hyperlipidemia, diabetes, CABG, and stage 4 renal disease, who presented to the emergency department because of presyncopal episode, resulting in a fall. Per the patient, she stood up from the side of the bed and felt extremely dizzy and fell to the ground. However, the patient denies losing consciousness. Her mother noticed that she had slurred speech for some time and decided to call the EMS to bring her to the emergency room for further evaluation. Per the patient, she has been feeling progressively weak since the last 2 to 3 days. The patient denies nausea, vomiting, headache, chest pain, abdominal pain, recent sick contacts, recent illness, focal paresthesias, focal weakness, problems with swallowing , blurred vision or loss of vision, loss of consciousness associated with the episode. REVIEW OF SYSTEMS: All 14 systems were reviewed and were negative except for the pertinent positives and negatives mentioned in the HPI. PAST MEDICAL HISTORY: Hypertension, diabetes mellitus, hyperlipidemia, CABG, stage 4 renal disease, and depression. PAST SURGICAL HISTORY: Hysterectomy and CABG x4. SOCIAL HISTORY: The patient denies alcohol or illegal drug use. She does smoke cigarettes. ALLERGIES: Cephalexin PHYSICAL EXAMINATION: VITAL SIGNS: Blood pressure 214/97, pulse 87, respiratory rate 18. CVS: Regular rate and rhythm. CHEST: Clear. ABDOMEN: Soft. NECK: Supple. NEUROLOGICAL: Mental status, the patient is alert and oriented to person, place , and time. Speech is clear. Recent and remote memory intact. Fund of knowledge is appropriate. Motor, muscle tone and bulk are normal. Strength 5/5 bilaterally. Sensory intact. Gait deferred due to the patient's safety reasons. Cerebellar intact. DATA REVIEWED: I reviewed the CT scan, which was negative for acute intracranial pathology, but presence of remote infarcts. ASSESSMENT AND PLAN: Ms. Samira Bowers is consulted for presyncopal episode status post fall. Most likely presyncopal episode but TIA caanot be excluded.. Check orthostatics. Strict control of blood pressure and blood glucose. Neuro checks every 4 hours. Continue aspirin and statin for secondary stroke prevention. Continue home medications. 2 D echo and carotid dopplers. EEG to evaluate for left temporal lobe encephalomalacia present on the imaging, ongoing memory issues. PT/OT/speech. Continue medical management per primary team. We will continue to follow. Thank you for the consult. Job ID: [id number] [facility]ily
--- NOTE | 2020-02-27 19:22 | HP ---
PRIMARY CARE PHYSICIAN: She says she believes her primary care doctor is Dr. Morales. CHIEF COMPLAINT: "Trouble with my balance and weakness." HISTORY OF PRESENT ILLNESS: The history of present illness is taken from the patient; however, she is somewhat of a poor historian, so the details are a bit sketchy. Ms. Bowers is a pleasant 59-year-old female, who has history of hypertension, coronary artery disease as well as congestive heart failure. She was recently admitted to our facility about two months ago for what appears to be a CHF exacerbation. The patient says she was "I had just lost all time for 36 hours and does not remember any of the details surrounding the hospitalization." However, Ms. Bowers states that last night, she started having difficulty with her balance and trouble walking. She says she has been feeling lightheaded for the past six months. She says she tried to get up to go to the bathroom, but could not get up and had to have a friend come help her. She says that her right arm and leg were weak. Apparently, this morning her mom called an ambulance and brought her to the hospital where her symptoms are starting to improve. She had a CT scan of the brain done, which showed several old infarcts, but no acute infarct or bleed. Her blood pressure was extremely elevated and she is being admitted for probable TIA. When asked if she has been taking her blood pressure medicines, she says that she takes all of her medications, but she cannot name any of them, but she says that she sets an alarm three times a day in order to take them. She denies any chest pain. No shortness of breath. No palpitations and other than saying that her toes feel numb. No other complaints. REVIEW OF SYSTEMS: All systems were reviewed and are negative except for that mentioned in the history of present illness. PAST MEDICAL HISTORY: Significant for coronary artery disease, chronic kidney disease stage 4, chronic systolic heart failure with an ejection fraction of 35% to 40%, hypertension, hyperlipidemia, and continuing tobacco abuse. PAST SURGICAL HISTORY: She has had 4-vessel bypass surgery as well as a hysterectomy. ALLERGIES: TO KEFLEX, WHICH CAUSES HER SCALP TO ITCH. SOCIAL HISTORY: She continues to smoke 5 to 10 cigarettes a day. She has smoked for 40 years. Prior to this, she was smoking up to a pack a day. She says she is trying to quit. She denies any alcohol abuse. She is single. She lives with her mother. She has no children. Her mother is her next of kin and surrogate decision maker and her code status is full code. FAMILY HISTORY: Significant for coronary artery disease. MEDICATIONS: She could only list aspirin. She could not name her other medications. According to her records, she was discharged on; 1. Zoloft 100 mg daily. 2. Amlodipine 10 mg daily. 3. Carvedilol 3.125 mg twice a day. 4. Hydralazine 50 mg t.i.d. 5. Isosorbide dinitrate 20 mg t.i.d. 6. NicoDerm CQ 21 mg daily. 7. Pantoprazole 20 mg daily. 8. Potassium chloride 10 mEq p.o. daily. 9. Crestor 40 mg at bedtime. 10. Torsemide 20 mg daily. PHYSICAL EXAMINATION: GENERAL: She is alert and oriented. She appears to be in no acute distress. She is well developed, but she does appear to be chronically ill. VITAL SIGNS: Her blood pressure was 204/102, heart rate 71, respiratory rate of 24, and temperature is 98.2. HEENT: She is atraumatic and normocephalic, although she does have significant alopecia. Her pupils are equal and reactive. However, she does have a bilateral lid lag. Throat, there is no erythema, no exudates. NECK: There is no adenopathy. No bruits. LUNGS: Clear to auscultation. There is no wheezing. No rales. No rhonchi. CARDIOVASCULAR: She had a normal S1 and S2. There is no S3 or S4. No murmurs, clicks, or rubs. ABDOMEN: Soft. It is nontender and nondistended. Positive for bowel sounds. There is no rebound. No guarding. No organomegaly. EXTREMITIES: On her extremities, there is no clubbing or cyanosis. No edema. No calf tenderness. I was not able to palpate a dorsalis pedis pulse, but the posterior tibials were present bilaterally and 2+. NEUROLOGIC: Her muscle strength is 5/5 in both her upper and lower extremities, but she did have a slightly weaker application development specialist strength on the right as compared to the left. A very, very slight drift in the upper extremity on the right. Otherwise, the exam was nonfocal. LAB AND X-RAYS: Her EKG, it was sinus rhythm, the rate was in the 70s and she had a voltage criteria for LVH and some T-wave inversions in V4 through V6. This is by my reading. She also had a chest x-ray read by me, which showed cardiomegaly and no evidence of any infiltrates or effusions. CT scan of the brain showed an old infarct in the posterior parietal basal ganglia, right periventricular white matter in the light lamina papyracea. Lab results; white blood cell count is 8.2, hemoglobin is 13, hematocrit is 35.9, and platelet count is 153. Sodium 139, potassium 3.6, chloride is 100, CO2 is 25, BUN of 23, creatinine 1.85, glucose is 161. Her GFR was 28. Troponin 0.33. Urinalysis was essentially negative and urine drug screen negative. ASSESSMENT AND PLAN: This is a pleasant 59-year-old female, who presents to the emergency room with right upper and lower extremity weakness. I suspect this is a transient ischemic attack and I suspect the transient ischemic attack is related to uncontrolled blood pressure and hypertensive urgency, in addition to ongoing tobacco abuse. However, she will be placed in observation. We will get an MRI of the brain to rule out stroke. She has had a recent echo. Therefore, this will not be repeated. However, we will go ahead and get carotid Dopplers. Place her on aspirin and statin therapy. 1. Hypertensive urgency. I suspect this is due to medical noncompliance. She cannot name any of her blood pressure medications. What we will do is start her back on her medications as she had been discharged home on prior and see if any additional adjustments need to be made. 2. Coronary artery disease. This appears to be clinically stable. 3. Chronic kidney disease. This also appears to be clinically stable. Job ID: [id number]
[2020-02-27] MEDS: Heparin 5,000 UNITS/ML VIAL SC SCH (19:58)
[2020-02-27] MEDS: Carvedilol 3.125 MG TAB PO SCH (19:59)
[2020-02-27] MEDS ORDERED: Famotidine 20 MG TAB PO SCH (21:00)
[2020-02-27] MEDS ORDERED: Rosuvastatin 20 MG TAB PO SCH ×2 (21:00)
[2020-02-28 05:18] LABS: #Eosinphils 0.1 thou/uL (0.0-0.7); #Lymphocytes 1.5 thou/uL (1.20-3.40); #Monocytes 0.5 thou/uL (0.11-0.59); #Neutrophils 4.6 thou/uL (1.40-6.50); %Basophils 0.1 % (0.0-1.0); %Eosinophils 1.4 % (0.0-10.0); %Lymphocytes 22.2 % (21.0-51.0); %Monocytes 7.7 % (0.0-10.0); %Neutrophils 68.5 % (42.0-75.0); Hemoglobin 10.8 g/dL (12.0-16.0); Mean Corpuscular HGB CONC 34.9 g/dL (32.0-36.0); Mean Corpuscular Hemoglobin 27.5 pg (27.0-31.0); Mean Corpuscular Volume 78.8 fL (78.0-98.0); Mean Platelet Volume 8.5 fL (7.4-10.4); Platelet Count 162 thou/uL (130-400); Red Blood Cell (RBC) Count 3.92 mill/uL (4.20-5.40); White Blood Cell (WBC) Count 6.6 thou/uL (4.8-10.8)
[2020-02-28 05:31] LABS: Anion Gap 13 mmol/L (10-20); BUN (Urea Nitrogen) 20 mg/dL (9.8-20.1); Calc. Creatinine Clearance 31 mL/min (70-130); Calcium 8.6 mg/dL (7.8-10.44); Carbon Dioxide 27 mmol/L (22-29); Cardiac Risk 5.3 (Less than 4.5); Chloride 102 mmol/L (98-107); Cholesterol 189 mg/dl (< 200 Desired); Estimated GFR-MDRD 28; Glucose 159 mg/dL (70-105); HDL Cholesterol 36 mg/dL (>60 Neg Risk); Potassium 3.3 mmol/L (3.5-5.1); Sodium 139 mmol/L (136-145); Triglycerides 533 mg/dL (Less than 150)
[2020-02-28] MEDS ORDERED: Potassium Chloride 10 MEQ TAB PO SCH (08:00)
[2020-02-28] MEDS ORDERED: Amlodipine 10 MG TAB PO SCH (09:00)
[2020-02-28] MEDS ORDERED: Torsemide 20 MG TAB PO SCH (09:00)
[2020-02-28] MEDS ORDERED: Aspirin 325 mg Enteric Coated Tablet PO SCH (09:00)
[2020-02-28] MEDS: hydrALAZINE 25 MG TAB PO SCH ×2 (09:19→15:05)
[2020-02-28] MEDS: Heparin 5,000 UNITS/ML VIAL SC SCH (09:19)
[2020-02-28] MEDS: Isosorbide Dinitrate 20 MG TAB PO SCH ×2 (09:20→15:05)
[2020-02-28] MEDS: Carvedilol 3.125 MG TAB PO SCH (09:20)
--- NOTE | 2020-02-28 10:22 | PDOC.HOSPP ---
- Subjective Encounter Date: 02/28/20 Encounter Time: 10:20 Subjective: Ms. Bowers was seen today in follow-up of right sided weakness and confusion. She does not have any new complaints. She says the weakness and the numbness and tingling she felt has resolved. - Objective Vital Signs & Weight: Vital Signs (12 hours) Temp Pulse Resp BP Pulse Ox 02/28/20 09:20 60 02/28/20 09:19 60 02/28/20 07:28 97.6 F 60 16 139/63 96 02/28/20 03:50 97.9 F 59 L 18 149/71 H 97 02/27/20 23:23 98.2 F 69 16 148/70 H 97 Weight Weight 130 lb 3.2 oz I&O: 02/27/20 02/28/20 02/29/20 06:59 06:59 06:59 Intake Total 1260 Balance 1260 Result Diagrams: 02/28/20 04:33 02/28/20 04:33 Additional Labs: Accuchecks 02/27/20 18:31 POC Glucose 161 H Hospitalist ROS - Medication Medications: Active Medications Generic Name Dose Route Start Last Admin Trade Name Freq PRN Reason Stop Dose Admin Amlodipine Besylate 10 mg 02/28/20 09:00 02/28/20 09:20 Norvasc PO 10 mg DAILY LOLIS Administration Aspirin 325 mg 02/28/20 09:00 02/28/20 09:19 Ecotrin PO 325 mg DAILY LOLIS Administration Carvedilol 3.125 mg 02/27/20 21:00 02/28/20 09:20 Coreg PO 3.125 mg BID LOLIS Administration Heparin Sodium (Porcine) 5,000 units 02/27/20 21:00 02/28/20 09:19 Heparin SC 5,000 units BID LOLIS Administration Hydralazine HCl 50 mg 02/27/20 15:00 02/28/20 09:19 Apresoline PO 50 mg TID LOLIS Administration Isosorbide Dinitrate 20 mg 02/27/20 15:00 02/28/20 09:20 Isordil PO 20 mg TID LOLIS Administration Potassium Chloride 10 meq 02/28/20 08:00 02/28/20 09:20 Klor-Con 10 PO 10 meq QAM-WM LOLIS Administration Rosuvastatin Calcium 40 mg 02/27/20 21:00 02/27/20 19:59 Crestor PO 40 mg HS LOLIS Administration Sertraline HCl 100 mg 02/28/20 09:00 02/28/20 09:20 Zoloft PO 100 mg DAILY LOLIS Administration Torsemide 20 mg 02/28/20 09:00 02/28/20 09:19 Demadex PO 20 mg DAILY LOLIS Administration - Exam Eye: PERRL, anicteric sclera Heart: RRR, no murmur, no gallops, no rubs, normal peripheral pulses Respiratory: CTAB, no wheezes, no rales, no ronchi, normal chest expansion Gastrointestinal: soft, non-tender, non-distended, normal bowel sounds, no palpable masses Extremities: no cyanosis, no edema Hosp A/P (1) TIA (transient ischemic attack) Code(s): G45.9 - TRANSIENT CEREBRAL ISCHEMIC ATTACK, UNSPECIFIED Status: Acute (2) Hypertensive urgency Code(s): I16.0 - HYPERTENSIVE URGENCY Status: Acute (3) CAD (coronary artery disease) Code(s): I25.10 - ATHSCL HEART DISEASE OF [place] CORONARY ARTERY W/O ANG PCTRS Status: Chronic (4) Cerebral vascular disease Code(s): I67.9 - CEREBROVASCULAR DISEASE, UNSPECIFIED Status: Chronic (5) Tobacco abuse Code(s): Z72.0 - TOBACCO USE Status: Chronic (6) Type 2 diabetes mellitus Status: Chronic - Plan * TIA- I suspect this was due to poorly controlled blood pressure. However she does have evidence of possible significant plaque disease in her carotids. I would normally get a CTA, but due to her chronic renal insufficiency, I am reluctant to do this. Will consult CV surgery prior to getting any additional imaging. * HTN- blood pressure is much better, on her home medications. I suspect medical non-compliance * DM- blood glucose is stable * Dyslipidemia- continue Crestor, and she may need the addition of a triglyceride lowering medication * Tobacco abuse- discussed with the patient- she says she is in the process of cutting back, with the goal of quitting.
--- NOTE | 2020-02-28 11:38 | PDOC.HOSPP ---
- Subjective Encounter Date: 02/28/20 Subjective: NEUROLOGY PROGRESS NOTE Patient feels better and focal right sided weakness and AMS resolved. MRI brain and EEG negative. - Objective Vital Signs & Weight: Vital Signs (12 hours) Temp Pulse Resp BP Pulse Ox 02/28/20 11:13 98.1 F 60 16 155/74 H 95 02/28/20 09:20 60 02/28/20 09:19 60 02/28/20 07:28 97.6 F 60 16 139/63 96 02/28/20 03:50 97.9 F 59 L 18 149/71 H 97 Weight Weight 130 lb 3.2 oz I&O: 02/27/20 02/28/20 02/29/20 06:59 06:59 06:59 Intake Total 1260 480 Balance 1260 480 Result Diagrams: 02/28/20 04:33 02/28/20 04:33 Additional Labs: Accuchecks 02/27/20 18:31 POC Glucose 161 H Radiology Reviewed by me: Yes EKG Reviewed by me: Yes Hospitalist ROS - Review of Systems Constitutional: denies: fever, chills, sweats, weakness, malaise, other Eyes: denies: pain, vision change, conjunctivae inflammation, eyelid inflammation, redness, other ENT: denies: ear pain, ear discharge, nose pain, nose discharge, nose congestion , mouth pain, mouth swelling, throat pain, throat swelling, other Respiratory: denies: cough, dry, shortness of breath, hemoptysis, SOB with excertion, pleuritic pain, sputum, wheezing, other Cardiovascular: denies: chest pain, palpitations, orthopnea, paroxysmal noc. dyspnea, edema, light headedness, other Gastrointestinal: denies: nausea, vomiting, abdominal pain, diarrhea, constipation, melena, hematochezia, other Genitourinary: denies: dysuria, frequency, incontinence, hematuria, retention, other Skin: denies: rash, lesions, imtiaz, bruising, other Neurological: denies: weakness, numbness, incoordination, change in speech, confusion, seizures, other - Medication Medications: Active Medications Generic Name Dose Route Start Last Admin Trade Name Freq PRN Reason Stop Dose Admin Amlodipine Besylate 10 mg 02/28/20 09:00 02/28/20 09:20 Norvasc PO 10 mg DAILY LOLIS Administration Aspirin 325 mg 02/28/20 09:00 02/28/20 09:19 Ecotrin PO 325 mg DAILY LOLIS Administration Carvedilol 3.125 mg 02/27/20 21:00 02/28/20 09:20 Coreg PO 3.125 mg BID LOLIS Administration Heparin Sodium (Porcine) 5,000 units 02/27/20 21:00 02/28/20 09:19 Heparin SC 5,000 units BID LOLIS Administration Hydralazine HCl 50 mg 02/27/20 15:00 02/28/20 09:19 Apresoline PO 50 mg TID LOLIS Administration Isosorbide Dinitrate 20 mg 02/27/20 15:00 02/28/20 09:20 Isordil PO 20 mg TID LOLIS Administration Potassium Chloride 10 meq 02/28/20 08:00 02/28/20 09:20 Klor-Con 10 PO 10 meq QAM-WM LOLIS Administration Rosuvastatin Calcium 40 mg 02/27/20 21:00 02/27/20 19:59 Crestor PO 40 mg HS LOLIS Administration Sertraline HCl 100 mg 02/28/20 09:00 02/28/20 09:20 Zoloft PO 100 mg DAILY LOLIS Administration Torsemide 20 mg 02/28/20 09:00 02/28/20 09:19 Demadex PO 20 mg DAILY LOLIS Administration - Exam General Appearance: awake alert Eye: PERRL ENT: normocephalic atraumatic Neck: supple Heart: RRR Respiratory: CTAB Gastrointestinal: soft Extremities: no cyanosis Skin: normal turgor Neurological: cranial nerve grossly intact, normal sensation to touch, no weakness, no focal deficits Musculoskeletal: normal tone, normal strength, no muscle wasting Psychiatric: normal affect, normal behavior, A&O x 3 Hosp A/P (1) TIA (transient ischemic attack) Code(s): G45.9 - TRANSIENT CEREBRAL ISCHEMIC ATTACK, UNSPECIFIED Status: Acute (2) Hypertensive urgency Code(s): I16.0 - HYPERTENSIVE URGENCY Status: Acute (3) CAD (coronary artery disease) Code(s): I25.10 - ATHSCL HEART DISEASE OF [place] CORONARY ARTERY W/O ANG PCTRS Status: Chronic (4) Tobacco abuse Code(s): Z72.0 - TOBACCO USE Status: Chronic (5) Chronic heart failure Code(s): I50.9 - HEART FAILURE, UNSPECIFIED Status: Acute (6) Hx of CABG Status: Acute - Plan PT/OT, speech therapy, DVT proph w/SCDs 59 year old presented with focal deficits and aletered mental status which is now resolved. Most likely TIA due to hypertensive emergency. MRI brain reviewed and was negative for acute process, EEG reviewed and was negative for seizure activity. Carotid dopplers showed stenosis. CV surgery input requested since CTA neck not possible due to renal function. 2 D Echo pending. Continue aspirin and statin for secondary stroke prevention. Strict control of BP and BG, Neurochecks every 4 hours. Continue home medications. PT/OT/Speech Continue medical management per primary team. Plan and results discussed with the patient
[2020-02-28] MEDS ORDERED: Potassium Chloride 20 MEQ TAB PO SCH (13:00)
[2020-02-28 13:52] LABS: SARS-CoV-2 MS2 Positive; SARS-CoV-2 N Gene Negative; SARS-CoV-2 S Gene Negative; SARS-CoV-2 by NAA Not Detected (NotDetected); SARS-CoV-2 orf1ab Negative
[2020-02-28 15:25] VITALS: BP 113/56; TEMP 98.3
--- NOTE | 2020-02-28 17:02 | CON ---
DATE OF CONSULTATION: 02/28/2020 REQUESTING PHYSICIAN: Dr. Baez. CHIEF COMPLAINT: Dizziness and right-sided weakness. HISTORY OF PRESENT ILLNESS: The patient is a 59-year-old diabetic smoker with hypertension and renal insufficiency, who underwent coronary artery bypass grafting about a year ago. The patient says that she started cutting down on her smoking about 6 months ago and currently smokes about half a pack of cigarettes a day. For several months, the patient has been having episodes of dizziness and early on the morning of presentation, she had an episode associated with right-sided weakness and slurring of her speech. She apparently fell when she was trying to get up during this episode and family member summoned EMS. She says her symptoms lasted for several hours, but parenthetically, it should be noted that she presented to the hospital yesterday morning and she insists that the symptoms started this morning. On presentation to the emergency room, she was markedly hypertensive with a systolic blood pressure a little over 200 and a diastolic of little over 100. Her speech was interpreted as normal, but she walked with a bit of a limp. No focal motor deficits and deep tendon reflexes were appreciated. The patient denies any previous such episodes of focal weakness although her CT and MRI both show evidence of bilateral old cerebrovascular events. PAST MEDICAL HISTORY: Significant for hypertension, diabetes mellitus, coronary artery disease, having undergone coronary artery bypass grafting about a year ago, renal insufficiency with a BUN of 20, creatinine 1.86, and an estimated GFR of 28 this morning similar to what she had on presentation. HOME MEDICATIONS: The patient is not able to name her home medications, she claims to take them as directed. List obtained from family indicates that she is on: 1. Baby aspirin a day. 2. Coreg 3.125 mg b.i.d. 3. Hydralazine 50 mg t.i.d. 4. Isordil 20 mg t.i.d. 5. Demadex 20 mg a day. 6. Potassium chloride 10 mEq a day. 7. Crestor 40 mg at bedtime. 8. Zoloft 100 mg a day. ALLERGIES: SHE REPORTS AN ALLERGY TO KEFLEX THAT CAUSES ITCHING. FAMILY HISTORY: Significant for coronary artery disease and diabetes in both of her parents. REVIEW OF SYSTEMS: Negative for any shortness of breath, chest pain, antecedent episodes of transient eye, speech, facial, or extremity symptoms consistent with TIAs. It is positive for worsening gradual onset of dizziness and weakness. PHYSICAL EXAMINATION: GENERAL: She appears much older than her stated age. VITAL SIGNS: Currently, her heart rate is 60, blood pressure 155/74, temperature is 98.1, T-max this hospitalization is 98.2. NECK: She has no obvious JVD or carotid bruits. CHEST: Distant breath sounds. HEART: She has a regular rate and rhythm. ABDOMEN: Soft, nontender. NEUROLOGIC: Cranial nerves 2 through 12 are grossly intact as is upper and lower extremity strength. EXTREMITIES: No clubbing, cyanosis, or edema. LABORATORY DATA: Her white count was 8.2, hemoglobin 13.0, hematocrit 35.9, platelet 153,000. Followup CBC this morning shows her hemoglobin is 10.8. Her admission labs showed normal electrolytes and glucose of 161, BUN 23, creatinine 1.85, and an estimated GFR of 28. Her alkaline phosphatase was slightly elevated at 111, otherwise her LFTs were normal. Calcium is 8.9, albumin 3.8. Her BNP was 178.1. Her troponins were fairly steady and minimally elevated at 0.033, 0.038 , and 0.038. The UA had some proteinuria. The toxicology screen was negative. Her chest x-ray shows sternal wires and graft markers and slight cardiomegaly and prominent parenchymal markings. Her CT scan showed old infarctions of the parietal lobe and basal ganglia on the left and old lacunar infarct in the right periventricular white matter, but no acute events. Her MRI showed encephalomalacia and gliosis in the left temporal lobe. Her carotid ultrasound has normal velocities and ratios. On the right side, her internal carotid velocities were 100, 62, and 82. Her common carotid velocities were 61, 48, and 53 for a ratio of 1.65. On the left side, her internal carotid velocities were 74, 82, and 80. Common carotid velocities were 58, 73, and 94 for a ratio of 0.87. Both vertebrals had antegrade flow. There was some turbulence on color flow Doppler. I failed to appreciate the severely calcified plaque obscuring the lumen described in the dictated report. I see a fairly modest plaque burden that is more prominent on the right than it is on the left, but even that is a fairly mild plaque burden at the bulb and proximal internal carotid artery. IMPRESSION AND RECOMMENDATIONS: I do not see any utility in doing any further imaging studies to assess her cervical carotids. She might warrant annual surveillance; although there's not that much plaque in her carotids now I am sure that she will progress. I have discussed with her the need to completely stop smoking. She certainly needs to get her blood pressure under better control. Job ID: [id number] TIARA
--- NOTE | 2020-02-28 18:57 | DIS ---
DATE OF ADMISSION: 02/27/2020 DATE OF DISCHARGE: 02/28/2020 DISCHARGE DISPOSITION: Home. DISCHARGE DIAGNOSES: 1. Transient ischemic attack. 2. Hypertensive urgency. 3. Dyslipidemia. 4. Tobacco abuse. 5. Coronary artery disease. 6. Chronic kidney disease stage 4. DISCHARGE MEDICATIONS: Include; 1. Demadex 20 mg p.o. daily. 2. Crestor 40 mg p.o. at bedtime. 3. Potassium chloride 10 mEq p.o. daily. 4. Protonix 20 mg p.o. daily. 5. Isosorbide dinitrate 20 mg p.o. t.i.d. 6. Hydralazine 50 mg p.o. t.i.d. 7. Carvedilol 3.125 mg p.o. b.i.d. 8. Sertraline 100 mg p.o. daily. 9. Aspirin 81 mg p.o. daily. CODE STATUS: Full code. ALLERGIES: TO CEPHALEXIN. IMAGING DONE DURING HOSPITAL STAY: The patient had a CT scan of the brain, which was negative for any acute intracranial process. The patient had bilateral carotid Dopplers, which showed heavily calcified plaque in the origin of the right internal carotid. They could not evaluate the degree of stenosis. The patient had an MRI of the brain showing no acute infarct. There was chronic small-vessel ischemic change. There was a remote cavitary lacunar infarcts in the left and right deep white matter as well as the left caudate nucleus. There was some left encephalomalacia and gliosis in the left temporal lobe. HOSPITAL COURSE: Ms. Bowers is a pleasant 59-year-old female, who presented to the emergency room with complaints of right-sided weakness as well as generalized weakness and some confusion. When she arrived in the ER, her blood pressure was extremely elevated with systolics above 200 and the diastolic in the 110 to 120s at one point. Her blood pressure was brought under control by placing her back on her home medications as well as some p.r.n. medicines initially. There was concern for possible transient ischemic attack and an MRI was obtained as well as carotid Dopplers. Old infarcts were demonstrated, but no area of new infarction. She had had a recent echo on a previous admission. Therefore, this was not repeated. The carotid Dopplers did display a heavily calcified plaque in the right internal carotid artery. Usually, we would follow this up with a CT angiogram. However, due to her renal function, she had a GFR in the 20s. There was concern for worsening of her renal function. For this reason, Vascular Surgery was consulted directly. It was felt that due to the velocities, it was unlikely that this was a critical stenosis. Her symptoms are likely the result of uncontrolled blood pressure as her blood pressure was extremely high during her initial presentation. Also, the patient continues to smoke and it is likely that this is the cause of the TIA and not the plaque lesion in the internal carotids. She was instructed on the need to stop smoking, which she says she is working on and has decreased her cigarette use and also was instructed that she needs to be compliant with her medications. I suspect medical noncompliance as her blood pressure was very well controlled once she was restarted on her home medications. The patient once stabilized, was able to be discharged home and instructed on the need for close outpatient followup. Job ID: [id number]
[2020-02-28] MEDS ORDERED: Famotidine 20 MG TAB PO SCH (21:00)
--- NOTE | 2020-03-03 10:01 | EEG ---
DATE OF SERVICE: 02/28/2020 ATTENDING PHYSICIAN: Khushi Taylor MD This EEG was performed using 24-channel the graftertek video digital EEG machine with 24-disk electrodes. This was an extended 2 hours 6 minutes of inpatient video EEG recording. Digital analysis of the EEG was done for spike and seizure detection, which revealed no abnormalities. BACKGROUND: The posterior background rhythm is 9 to 10 hertz. The background rhythm attenuates with eye opening and enhances with eye closure. HYPERVENTILATION: Not performed. PHOTIC STIMULATION: Bioccipital symmetric driving responses observed. SLEEP: Drowsiness and sleep are observed. EEG DIAGNOSIS: Normal awake, drowsy, and sleep EEG. Job ID: [id number]
--- NOTE | 2020-03-07 15:23 | EKG ---
Test Reason : Blood Pressure : / mmHG Vent. Rate : 074 BPM Atrial Rate : 074 BPM P-R Int : 172 ms QRS Dur : 120 ms QT Int : 456 ms P-R-T Axes : 040 -03 121 degrees QTc Int : 506 ms Sinus rhythm with occasional Premature ventricular complexes Possible Left atrial enlargement Left ventricular hypertrophy with QRS widening and repolarization abnormality Cannot rule out Inferior infarct , age undetermined Anterior infarct , age undetermined Abnormal ECG Confirmed by ANA DAVE, WON ([id number]), rewrite editor LUDY GÓMEZ ([id number]) on 03/07/2020 3:23:33 PM Referred By: Confirmed By:WON PEREZ MD
== END 2020-02-28 17:47 | disposition home or self-care (01) ==
LOC: ERS 09:08 → 2SE 14:44
PROVIDERS: ADMIT Internal Medicine; ATTEND Internal Medicine
DX: G45.9 Transient cerebral ischemic attack, unspecified (principal); I16.0 Hypertensive urgency; E78.5 Hyperlipidemia, unspecified; F17.210 Nicotine dependence, cigarettes, uncomplicated; I25.10 Atherosclerotic heart disease of native coronary artery without angina pectoris; I13.0 Hypertensive heart and chronic kidney disease with heart failure and stage 1 through stage 4 chronic kidney disease, or unspecified chronic kidney disease; E11.22 Type 2 diabetes mellitus with diabetic chronic kidney disease; N18.4 Chronic kidney disease, stage 4 (severe); I50.22 Chronic systolic (congestive) heart failure; G93.89 Other specified disorders of brain; Z79.82 Long term (current) use of aspirin; Z79.899 Other long term (current) drug therapy; Z88.1 Allergy status to other antibiotic agents; Z95.1 Presence of aortocoronary bypass graft; Z20.828 Contact with and (suspected) exposure to other viral communicable diseases; W19.XXXA Unspecified fall, initial encounter
CPT/HCPCS: 36415; 36416; 51701; 70450; 70551; 71045; 80048; 80053; 80061; 80306; 80307; 81003; 81015; 82553; 83880; 84484; 85025; 87635; 93005; 93880; 95712; 95816; 95819; 95957; 96361; 96374; 96376; G0378; J0360; J1644; U0003

== ENCOUNTER 2020-03-31 13:08 | Outpatient (CLI) | payer OTHER ==
--- NOTE | 2020-03-31 14:04 | RAD ---
Exam: XR Tib Fib Lt Leg 2 View HISTORY: Pain in distal left lower extremity for one year. Bone pain. Patient states pain is intermittent. COMPARISON: None FINDINGS: No acute fracture, dislocation, or other acute osseous abnormality is identified. Surgical clips are seen along the medial aspect distal left lower extremity at the level of the proxi mal tibial diaphysis. Vascular calcifications are seen posterior to the knee. IMPRESSION: No acute osseous abnormality is identified.
== END 2020-03-31 13:09 | disposition home or self-care (01) ==
LOC: BICRAD 13:08
PROVIDERS: ATTEND Family Medicine
DX: M89.8X6 Other specified disorders of bone, lower leg (principal)

== ENCOUNTER 2020-06-12 09:13 | Inpatient (IN) | payer OTHER, SELFPAY ==
[2020-06-12] MEDS ORDERED: Aspirin 325 MG TAB ONE (09:47)
[2020-06-12] MEDS ORDERED: Furosemide 40 MG/4 ML VIAL ONE (09:47)
[2020-06-12] MEDS ORDERED: Nitroglycerin 0.4 MG TAB 1 EACH ONE (09:48)
[2020-06-12] MEDS ORDERED: Nitroglycerin 50 MG/250 ML BOT 250 ML ONE (09:49)
--- NOTE | 2020-06-12 10:10 | RAD ---
Chest AP view INDICATION: History of cough and chest congestion COMPARISON: Prior exam dated February 27, 2020 FINDINGS: Lungs: There are new patchy airspace opacities within the right lower lobe and left lung base. Cardiac silhouette: There is cardiomegaly Pulmonary vasculature: There is pulmonary vascular congestion Pleural spaces: There are small bilateral pleural effusions Upper abdomen: No abnormality seen. Osseous structures: No acute osseous abnormality. Additional findings: Post-CABG changes stable IMPRESSION: Worsening cardiomegaly, pulmonary vascular congestion small bilateral pleural effusions suggest compo nent of CHF. There are patchy airspace opacities within both lung bases which may reflect edema or pneumonia.
[2020-06-12 10:29] LABS: #Eosinphils 0.1 thou/uL (0.0-0.7); #Lymphocytes 0.9 thou/uL (1.20-3.40); #Monocytes 0.6 thou/uL (0.11-0.59); #Neutrophils 5.5 thou/uL (1.40-6.50); %Basophils 0.3 % (0.0-1.0); %Eosinophils 0.8 % (0.0-10.0); %Lymphocytes 12.9 % (21.0-51.0); %Monocytes 8.7 % (0.0-10.0); %Neutrophils 77.2 % (42.0-75.0); Hemoglobin 9.2 g/dL (12.0-16.0); Mean Corpuscular HGB CONC 31.3 g/dL (32.0-36.0); Mean Corpuscular Hemoglobin 24.8 pg (27.0-31.0); Mean Corpuscular Volume 79.1 fL (78.0-98.0); Mean Platelet Volume 9.2 fL (7.4-10.4); Platelet Count 234 thou/uL (130-400); RBC Distribution Width 18.7 % (11.5-14.5); Red Blood Cell (RBC) Count 3.73 mill/uL (4.20-5.40); White Blood Cell (WBC) Count 7.1 thou/uL (4.8-10.8)
[2020-06-12 10:45] LABS: ALT (SGPT) 35 U/L (8-55); AST (SGOT) 30 U/L (5-34); Albumin 3.5 g/dL (3.5-5.0); Alkaline Phosphatase 153 U/L (40-110); Anion Gap 16 mmol/L (10-20); BUN (Urea Nitrogen) 28 mg/dL (9.8-20.1); Bilirubin, Total 0.7 mg/dL (0.2-1.2); Calc. Creatinine Clearance 0 mL/min (70-130); Calcium 8.7 mg/dL (7.8-10.44); Carbon Dioxide 22 mmol/L (22-29); Chloride 103 mmol/L (98-107); Globulin 3.5 g/dL (2.4-3.5); Glucose 146 mg/dL (70-105); Potassium 3.6 mmol/L (3.5-5.1); Sodium 137 mmol/L (136-145)
[2020-06-12] MEDS ORDERED: Senokot S 8.6-50 MG TAB PO PRN (11:08)
[2020-06-12] MEDS ORDERED: Dextrose 5% in Water 1,000 ML IV PRN (11:08)
[2020-06-12] MEDS ORDERED: Calcium Carbonate 500 MG ChewTAB PO PRN (11:08)
[2020-06-12] MEDS ORDERED: Ondansetron PF 4 MG/2 ML Vial IVP PRN (11:08)
[2020-06-12] MEDS ORDERED: Acetaminophen 325 MG TAB PO PRN (11:08)
[2020-06-12] MEDS ORDERED: Bisacodyl 10 MG SUPP PR PRN (11:08)
[2020-06-12] MEDS ORDERED: HumaLOG 300 UNITS/3 ML VIAL SC PRN ×2 (11:08)
[2020-06-12] MEDS ORDERED: Guaifenesin DM 100-10/5 ML UDCUP PO PRN (11:08)
[2020-06-12] MEDS ORDERED: Dextrose 50% Abboject 50 ML SYRINGE SLOW IVP PRN (11:08)
[2020-06-12] MEDS ORDERED: Nitroglycerin 2% Ointment 1 INCH/1 GM Packet ONE (11:17)
--- NOTE | 2020-06-12 11:47 | HP ---
REASON FOR ADMISSION: CHF exacerbation and hypertension uncontrolled. HISTORY OF PRESENTING ILLNESS: The patient gives history of having shortness of breath, which has been progressively getting worse for last month or so. She also states that she ran out of her medications and she normally goes to [facility], but was unable to check in there. She continues to smoke half pack a day. No complaints of fever and has some dry cough due to her smoking habit. No complaints of generalized weakness as such or flu-like illness. She lives with her mother. PAST MEDICAL AND SURGICAL HISTORY: History of CHF with ejection fraction of 35% to 40%. There is inferior and posterior wall akinesis on the echo done in November of 2019, prior CABG, hypertension, diabetes mellitus type 2, dyslipidemia, history of CVA, and hysterectomy. CURRENT MEDICATIONS: The patient states she is not taking any medications as of now. She ran out of it for almost a month now. The patient was prescribed; 1. Aspirin 81 mg daily. 2. Coreg 3.125 mg twice daily. 3. Demadex 20 mg daily. 4. BiDil 50/20 mg 3 times daily. 5. K-Dur 10 mEq p.o. daily. 6. Protonix 20 mg daily. 7. Crestor 40 mg p.o. daily. 8. Sertraline 100 mg p.o. daily. ALLERGIES: TO KEFLEX. PERSONAL HISTORY: Smokes half pack a day. Does not abuse alcohol or drugs. Lives with her mother. Ambulates by herself. FAMILY HISTORY: Mother is living and is currently in the room. She has had CABG twice, multiple stents, and history of heart failure. Father of massive [place] in his 60s, he has had CABG as well. CODE STATUS: Full. Power of animal eviscerator is her mom. REVIEW OF SYSTEMS: CONSTITUTIONAL: Negative for weight loss or gain, ability to conduct usual activities. SKIN: Negative for rash, itching. EYES: Negative for double vision, pain. ENT/MOUTH: Negative for nose bleeding, neck stiffness, pain, tenderness. CARDIOVASCULAR: Negative for palpitations, dyspnea on exertion, orthopnea. RESPIRATORY: Negative for shortness of breath, wheezing, cough, hemoptysis, fever or night sweats. GASTROINTESTINAL: Negative for poor appetite, abdominal pain, heartburn, nausea, vomiting, constipation, or diarrhea. GENITOURINARY: Negative for urgency, frequency, dysuria, nocturia. MUSCULOSKELETAL: Negative for pain, swelling. NEUROLOGIC/PSYCHIATRIC: Negative for anxiety, depression. ALLERGY/IMMUNOLOGIC: Negative for skin rash, bleeding tendency. PHYSICAL EXAMINATION: GENERAL: The patient is a 60-year-old female, who is currently not in any acute distress. VITAL SIGNS: Blood pressure 160/82, pulse 60 per minute, respiratory rate 24 per minute, temperature 98 degrees Fahrenheit, and saturating 100% on room air. NECK: Supple. There is elevated JVD. HEENT: Eyes; extraocular muscles intact. CARDIOVASCULAR SYSTEM: S1 and S2 heard. S3 plus. RESPIRATORY SYSTEM: Air entry 1+ bilateral, rales plus in the infrascapular area. ABDOMEN: Soft. Bowel sounds heard. No tenderness, rigidity, or guarding. EXTREMITIES: There is 2+ peripheral edema. No calf tenderness. VASCULAR SYSTEM: Peripheral pulses 1+ bilateral. No ischemic ulcers or gangrene. CENTRAL NERVOUS SYSTEM: No gross focal deficits noted clinically. She is alert, awake, and oriented well. PSYCHIATRIC SYSTEM: No obvious hallucinations or delusions. LABORATORY DATA: White count of 7, H and H of 9 and 29, platelet count 234 with 77% neutrophils, and MCV 79. D-dimer is 1.5, serum bicarb 22, BUN 28, creatinine 2.1, serum glucose 146. Troponin I 0.07. BNP is 2335. Albumin is 3.5. Chest x-ray done shows pulmonary vascular congestion, cardiomegaly. CLINICAL IMPRESSION AND PLAN: The patient will be admitted to telemetry for acute on chronic congestive heart failure exacerbation with systolic dysfunction and ejection fraction of around 35%. The patient is noncompliant with her medication and has not taken it for almost a month now. She continues to smoke half pack a day. She will be on aspirin, Coreg, and lisinopril. We will add Lasix 40 mg at 6 a.m. and 2:00 p.m. Continue BiDil as before, Crestor, and Zoloft. The patient was counseled with regard to medication compliance and dietary compliance. We will obtain iron studies as well. We will continue to closely monitor her on telemetry. The patient wants to be full code. Job ID: [id number]
[2020-06-12 12:21] LABS: Iron 14 ug/dL (50-170); Iron Binding Capacity, Total 380 mcg/dL (265-497)
[2020-06-12 12:36] LABS: SARS-CoV-2 NAA Rapid Test Not Detected (NotDetected)
[2020-06-12 12:44] LABS: Ferritin 120.35 ng/mL (10-291)
[2020-06-12 12:55] LABS: Bilirubin Negative (Negative); Blood, Urine Negative (Negative); Clarity Clear (Clear); Glucose, Urine (Dipstick) Normal (Negative); Ketone, Urine Negative (Negative); Leukocyte 250 Leu/uL (Negative); Nitrite Negative (Negative); Protein, Urine (Dipstick) 50 mg/dL (Neg-Trace); RBC/HPF 0-3 HPF (0-3); Specific Gravity, Urine 1.006 (1.002-1.036); Squamous Epithelial 0-3 HPF (0-3); Urobilinogen Normal mg/dL (Less than 2); pH, Urine 6.5 (5.0-9.0)
[2020-06-12 13:00] LABS: Bacteria/HPF 1+ HPF (None Seen)
[2020-06-12 14:10] LABS: Troponin I 0.059 ng/mL (< 0.028)
[2020-06-12] MEDS: hydrALAZINE 25 MG TAB PO SCH ×2 (16:03→20:18)
[2020-06-12] MEDS: Furosemide 40 MG/4 ML VIAL SLOW IVP SCH (16:03)
[2020-06-12] MEDS: Isosorbide Dinitrate 20 MG TAB PO SCH ×2 (16:04→20:18)
[2020-06-12 16:28] VITALS: BMI 23.8
[2020-06-12 17:16] LABS: Troponin I 0.052 ng/mL (< 0.028)
[2020-06-12] MEDS: Carvedilol 6.25 MG TAB PO SCH (20:18)
[2020-06-12] MEDS: Rosuvastatin 20 MG TAB PO SCH (20:18)
[2020-06-12 22:30] LABS: SARS-CoV-2 MS2 Positive; SARS-CoV-2 N Gene Negative; SARS-CoV-2 S Gene Negative; SARS-CoV-2 by NAA Not Detected (NotDetected); SARS-CoV-2 orf1ab Negative
[2020-06-13 05:17] LABS: #Eosinphils 0.1 thou/uL (0.0-0.7); #Lymphocytes 1.3 thou/uL (1.20-3.40); #Monocytes 0.5 thou/uL (0.11-0.59); %Basophils 0.5 % (0.0-1.0); %Eosinophils 2.1 % (0.0-10.0); %Lymphocytes 22.3 % (21.0-51.0); %Monocytes 8.7 % (0.0-10.0); %Neutrophils 66.4 % (42.0-75.0); Hemoglobin 7.8 g/dL (12.0-16.0); Mean Corpuscular HGB CONC 31.4 g/dL (32.0-36.0); Mean Corpuscular Hemoglobin 24.4 pg (27.0-31.0); Mean Corpuscular Volume 77.6 fL (78.0-98.0); Mean Platelet Volume 9.3 fL (7.4-10.4); Platelet Count 226 thou/uL (130-400); RBC Distribution Width 18.5 % (11.5-14.5); Red Blood Cell (RBC) Count 3.18 mill/uL (4.20-5.40)
[2020-06-13 05:41] LABS: ALT (SGPT) 27 U/L (8-55); AST (SGOT) 22 U/L (5-34); Albumin 2.9 g/dL (3.5-5.0); Alkaline Phosphatase 122 U/L (40-110); Anion Gap 14 mmol/L (10-20); BUN (Urea Nitrogen) 31 mg/dL (9.8-20.1); Bilirubin, Total 0.5 mg/dL (0.2-1.2); Calc. Creatinine Clearance 27 mL/min (70-130); Calcium 7.9 mg/dL (7.8-10.44); Carbon Dioxide 25 mmol/L (22-29); Chloride 103 mmol/L (98-107); Globulin 2.8 g/dL (2.4-3.5); Glucose 120 mg/dL (70-105); Potassium 3.5 mmol/L (3.5-5.1); Protein, Total 5.7 g/dL (6.0-8.3); Sodium 138 mmol/L (136-145)
[2020-06-13] MEDS: Furosemide 40 MG/4 ML VIAL SLOW IVP SCH ×2 (05:53→15:01)
[2020-06-13] MEDS ORDERED: FLU VACC QS2020-21(6MOS UP)/PF 60 MCG/0.5 ML SYRINGE IM ONE (09:00)
[2020-06-13] MEDS ORDERED: Lisinopril 2.5 MG TAB PO SCH (09:00)
[2020-06-13] MEDS ORDERED: Enoxaparin Sodium 30 MG/0.3 ML SYRINGE SC SCH (09:00)
[2020-06-13] MEDS: Aspirin Chewable 81 MG TAB PO SCH (09:10)
[2020-06-13] MEDS: Carvedilol 6.25 MG TAB PO SCH ×2 (09:10→20:39)
[2020-06-13] MEDS: Isosorbide Dinitrate 20 MG TAB PO SCH ×3 (09:11→20:37)
[2020-06-13] MEDS: hydrALAZINE 25 MG TAB PO SCH ×3 (09:11→20:37)
--- NOTE | 2020-06-13 11:53 | PDOC.HOSPP ---
- Subjective Encounter Date: 06/13/20 (f/u acute decompensated HF) Encounter Time: 11:51 Subjective: Pt reports feeling better but still has to sit up for her breathing. She denies any chest pain, n/v/abd pain. She reports the swelling in her legs is improved. She denies any new sx. - Objective Vital Signs & Weight: Vital Signs (12 hours) Temp Pulse Pulse Pulse Resp BP BP 06/13/20 10:20 54 L 57 L 124/60 139/60 06/13/20 09:15 98.2 F 60 18 06/13/20 03:34 06/13/20 02:59 97.9 F 52 L 19 06/13/20 00:10 97.8 F 54 L 16 BP Pulse Ox Pulse Ox Pulse Ox 06/13/20 10:20 96 97 06/13/20 09:15 167/78 H 97 06/13/20 03:34 96 06/13/20 02:59 121/62 96 06/13/20 00:10 132/65 98 Weight Weight 150 lb I&O: 06/12/20 06/13/20 06/14/20 06:59 06:59 06:59 Intake Total 240 360 Output Total 700 350 Balance -460 10 Result Diagrams: 06/13/20 04:53 06/13/20 04:53 Additional Labs: Accuchecks 06/13/20 06/12/20 06/12/20 10:26 20:22 16:17 POC Glucose 134 H 133 H 87 EKG Reviewed by me: Yes (tele - sinus 50-60's with PVC's) Hospitalist ROS - Medication Medications: Active Medications Generic Name Dose Route Start Last Admin Trade Name Freq PRN Reason Stop Dose Admin Aspirin 81 mg 06/13/20 09:00 06/13/20 09:10 Aspirin Chewable 81 Mg Tab PO 81 mg DAILY LOLIS Administration Carvedilol 6.25 mg 06/12/20 21:00 06/13/20 09:10 Carvedilol 6.25 Mg Tab PO 6.25 mg BID LOLIS Administration Furosemide 40 mg 06/12/20 14:00 06/13/20 05:53 Furosemide 40 Mg/4 Ml Vial SLOW IVP 40 mg 0600,1400 LOLIS Administration Hydralazine HCl 50 mg 06/12/20 15:00 06/13/20 09:11 Hydralazine 25 Mg Tab PO 50 mg TID LOLIS Administration Isosorbide Dinitrate 20 mg 06/12/20 15:00 06/13/20 09:11 Isosorbide Dinitrate 20 Mg Tab PO 20 mg TID LOLIS Administration Rosuvastatin Calcium 40 mg 06/12/20 21:00 06/12/20 20:18 Rosuvastatin 20 Mg Tab PO 40 mg HS LOLIS Administration Sertraline HCl 100 mg 06/13/20 09:00 06/13/20 09:10 Sertraline Hcl 100 Mg Tab PO 100 mg DAILY LOLIS Administration - Exam General Appearance: NAD Heart: RRR, no murmur Respiratory: no wheezes, no rales, no ronchi Respiratory - other findings: decreased breath sounds at the bases Extremities - other findings: 3+ bilateral edema Psychiatric: normal affect Hosp A/P (1) Decompensated heart failure Code(s): I50.9 - HEART FAILURE, UNSPECIFIED Status: Acute (2) Hypertension Code(s): I10 - ESSENTIAL (PRIMARY) HYPERTENSION Status: Chronic Qualifiers: Hypertension type: essential hypertension Qualified Code(s): I10 - Essential (primary) hypertension (3) Anemia Code(s): D64.9 - ANEMIA, UNSPECIFIED Status: Chronic Qualifiers: Anemia type: unspecified type Qualified Code(s): D64.9 - Anemia, unspecified (4) Chronic kidney disease (CKD) Code(s): N18.9 - CHRONIC KIDNEY DISEASE, UNSPECIFIED Status: Acute Qualifiers: Chronic kidney disease stage: stage 4 (severe) Qualified Code(s): N18.4 - Chronic kidney disease, stage 4 (severe) (5) CAD (coronary artery disease) Code(s): I25.10 - ATHSCL HEART DISEASE OF [place] CORONARY ARTERY W/O ANG PCTRS Status: Chronic (6) Tobacco abuse Code(s): Z72.0 - TOBACCO USE Status: Chronic (7) Type 2 diabetes mellitus Status: Chronic - Plan Acute decompensated systolic HF - on beta zaida, IV lasix, nitrate - Cards consult - echo - no VICENTE-I/ARB due to renal function Anemia - worsening - in the context of chronic kidney disease - transfuse if sx or less than 7 - FOBT - d/c lovenox - iron replacement CKD - worsening renal function compared to prior visits - Renal US - nephrology consult Mood d/o - continue home med dvt prophy - scd's gi prophy - not indicated, on home PPI - continue code status full reviewed plan of care with patient, no questions or further needs at end of eval. pt at high risk in current condition Addendum at 17:50 - reviewed and FOBT positive. Will start IV protonix, consult GI. Due to concern of cardiac function, and no gross signs of GI bleed, will continue the daily low-dose aspirin. Lovenox d/c earlier today.
--- NOTE | 2020-06-13 12:01 | CON ---
DATE OF CONSULTATION: 06/13/2020 HISTORY OF PRESENT ILLNESS: Ms. Bowers is a 60-year-old white female admitted for CHF exacerbation as well as for labile hypertension. Chest x-ray showed diffuse pulmonary edema. We are now being consulted for her acute kidney injury on top of her chronic renal failure. Of interest, this patient tells us that she has run out of some of her medications. She also continues to smoke at 1/2 pack a day. Now, her creatinine is noted to be slightly higher than baseline. She does have proteinuria and history of diabetes mellitus, and the possibility of underlying chronic renal failure from diabetic nephropathy remains. The patient is much improved with her shortness of breath after diuresis. REVIEW OF SYSTEMS: No chest pain. Positive for shortness of breath. Positive for cough. No fever or chills. No dysuria. No urinary frequency. No abdominal pain. No syncopal episode. No headache. No diplopia. HOME MEDICATIONS: Included: 1. Aspirin 81 mg tab daily. 2. Coreg 3.125 mg p.o. twice a day. 3. Demadex 20 mg daily. 4. BiDil 50/20 t.i.d. 5. K-Dur 10 mEq once a day. 6. Protonix 20 mg daily. 7. Crestor 40 mg tablet q.h.s. 8. Sertraline 100 mg p.o. daily. Her current hospital medications now include: 1. Lasix at 40 mg IV q.12-Demadex currently on hold. 2. She has a Humalog sliding scale. 3. She is also on isosorbide dinitrate at 20 mg t.i.d. 4. Hydralazine at t.i.d. dosing. 5. Sertraline at 100 mg tablet once a day. PAST MEDICAL HISTORY: Chronic renal failure secondary to a presumed diabetic nephropathy, type 2 diabetes mellitus, depression, hyperlipidemia, CHF, GERD. Includes also history of coronary artery disease, status post CVA. PAST SURGICAL HISTORY: Includes status post hysterectomy, status post cardiac cath, status post CABG. ALLERGIES: KEFLEX. TRAUMA: None. IMMUNIZATION: Up-to-date. HOSPITALIZATIONS: Please see Past Medical History. FAMILY HISTORY: No family history of ESRD. Positive for coronary artery disease. SOCIAL HISTORY: The patient lives with her mother. She lives in [place]. Currently smokes 1/2 pack a day. No alcohol. No IV drug abuse. No blood transfusion. Education, high school. Currently, not working. PHYSICAL EXAMINATION: VITAL SIGNS: Blood pressure is 167/78, heart rate 60, respiratory rate 18, temperature 98.2, O2 saturation 97% on room air. GENERAL: Awake, sitting comfortable, not in overt distress. SKIN: Adequate turgor. HEENT: Slightly pale conjunctivae. Anicteric sclerae. NECK: No neck mass. No carotid bruits. No JVD. CHEST: No deformities. LUNGS: Decreased breath sounds. HEART: Normal sinus rhythm. No murmur. No gallops. No rubs. ABDOMEN: Globular, soft, nontender. No masses. EXTREMITIES: Positive for +1 edema. NEUROLOGICAL: Awake, oriented to 3 spheres. Moving all extremities. No tremors. No asterixis. LABORATORIES: June 13, 2020; white count 6, hemoglobin 7.8, sodium 138, potassium 3.5, chloride 103, carbon dioxide 25, BUN 31, creatinine 2.39, glucose 120, calcium 7.9, AST 22, ALT 27, alkaline phosphatase 122, albumin 2.9. TSH 3.4. Troponin I 0.05. Chest x-ray shows CHF. Renal ultrasound is pending. Urinalysis of June 12, 2020, shows protein, no pigmented granular casts. Serologies for COVID, June 12, not detected x2. ASSESSMENT AND PLAN: 1. Congestive heart failure/shortness of breath-supportive care. Currently, on Lasix 40 mg IV q.12. My bias is due to her improved oxygenation as well improved symptoms, we can decrease the Lasix to 40 mg IV q. day. Please note renal function has worsened a little bit and is probably related to underlying congestive heart failure as well as diuretic regimen. 2. Acute kidney injury-superimposed hemodynamically-mediated renal dysfunction. Adjust Lasix to 40 mg IV q. day. No indication for any dialytic intervention. 3. Chronic renal failure. The exact etiology is unclear, but she does have proteinuria and the exact etiology of chronic renal failure remains unclear. She did have proteinuria. Possibility of chronic glomerulonephritis remains? 4. Anemia. Start iron supplementation. We will hold off Epogen until she is fully repleted with iron. 5. Agree with current management. Recheck CBC basement in a.m. Job ID: [id number]
--- NOTE | 2020-06-13 12:59 | ULT ---
RENAL ULTRASOUND: INDICATION: Acute kidney insufficiency with chronic kidney disease. FINDINGS: The right kidney measures 11.6 cm length. The left kidney measures 8.9 cm length. Mild cortical thinning is seen on the left. Cortical echogenicity is mildly increased bilaterally. No mass or hydronephrosis. Urinary bladder mildly distended and unremarkable. IMPRESSION: Cortical thinning left kidney. Mild increased cortical echogenicity. POS: AGW
[2020-06-13] MEDS ORDERED: Furosemide 100 MG/10 ML VIAL SLOW IVP SCH (14:45)
--- NOTE | 2020-06-13 16:02 | CON ---
DATE OF CONSULTATION: HISTORY OF PRESENT ILLNESS: The patient is a 60-year-old woman with a history of ischemic cardiomyopathy,who presents with recurrent dyspnea and lower extremity swelling. The patient was seen in December of this year with congestive heart failure. She previously underwent coronary artery bypass surgery a little over a year ago in [place]. The patient had coronary artery bypass surgery x4. She was noted to have a moderate decrease in left ventricular function. The patient had been doing well until she ran out of her medication approximately a month ago. The patient has noted that her legs became markedly edematous. She became short of breath. PAST MEDICAL HISTORY: 1. Congestive heart failure. 2. Diabetes mellitus. 3. Ischemic cardiomyopathy. 4. Chronic renal failure. 5. Hypertension. PAST SURGICAL HISTORY: Coronary artery bypass surgery, hysterectomy. SOCIAL HISTORY: Long history of tobacco abuse. FAMILY HISTORY: No strong family history of heart disease. ALLERGIES: KEFLEX. MEDICATIONS: 1. Hydralazine. 2. Coreg 3.125 b.i.d. 3. Aspirin 81 daily. 4. Isordil 20 t.i.d. 5. Protonix 40 daily. 6. Potassium 10 daily. 7. Rosuvastatin 40 daily. 8. Sertraline 100 daily. 9. Demadex 20 daily. 10. Hydralazine 50 mg t.i.d. REVIEW OF SYSTEMS: Ten-point system otherwise unremarkable. PHYSICAL EXAMINATION: GENERAL: This is a well-developed woman, in no acute distress. VITAL SIGNS: Blood pressure 139/60. NECK: No jugular venous distention. LUNGS: Have decreased breath sounds in the left base. HEART: Regular rate and rhythm. Normal S1, S2 with a 1/6 systolic murmur. ABDOMEN: Nondistended. EXTREMITIES: Show severe bilateral edema. VASCULAR: Radial pulses are 2+. LABORATORY DATA: White blood cell count 6.0, hemoglobin 7.8, hematocrit 24.7, platelets 226. Sodium 138, potassium 3.5, chloride 103, bicarbonate 25, BUN 31, creatinine 2.39. EKG normal sinus rhythm with first-degree block. IMPRESSION: 1. Congestive heart failure. 2. History of coronary artery bypass surgery. 3. Diabetes mellitus. 4. Chronic renal failure. 5. Tobacco abuse. 6. Cerebrovascular disease. This patient presents with congestive heart failure. She will be diuresed with IV Lasix. A repeat echocardiogram will be obtained to reevaluate her left ventricular function. The life threatening consequences were noncompliance with medications have been explained to the patient. Job ID: [id number] MTDD
[2020-06-13] MEDS: Ferrous Sulfate 325 MG TAB PO SCH (16:45)
[2020-06-13] MEDS ORDERED: Sodium Chloride 0.9% (PF) 10 ML VIAL FS PRN (20:23)
[2020-06-13] MEDS: Rosuvastatin 20 MG TAB PO SCH (20:36)
[2020-06-13] MEDS: Pantoprazole 40 MG VIAL IVP SCH (20:38)
[2020-06-13] MEDS ORDERED: Pantoprazole 40 MG VIAL IVP SCH (21:00)
--- NOTE | 2020-06-13 22:26 | CON ---
DATE OF CONSULTATION: 06/13/2020 CHIEF COMPLAINT: Shortness of breath and edema. HISTORY OF PRESENT ILLNESS: Ms. Bowers is a 60-year-old woman who underwent coronary artery bypass surgery a year ago. She has congestive heart failure but ran out of her medications a month ago, and during that time period, she gained around 12 pounds and had significant increased swelling in her lower extremities. She has had progressive shortness of breath over that time. She has had no nausea or vomiting. No diarrhea or constipation or blood in the stool. She has never had upper or endoscopy before. PAST MEDICAL HISTORY: CHF, coronary artery bypass graft, hypertension, diabetes mellitus type 2, hyperlipidemia, and stroke. PAST SURGICAL HISTORY: Hysterectomy, coronary artery bypass graft. FAMILY HISTORY: Negative for GI malignancy. SOCIAL HISTORY: She still smokes half a pack a day. No drugs. No alcohol. ALLERGIES: KEFLEX. MEDICATIONS: Currently in the hospital include: 1. Aspirin. 2. Carvedilol. 3. Furosamide. 4. Hydralazine. 5. Insulin. 6. Isosorbide dinitrate. 7. Pantoprazole 40 mg twice daily. 8. Sertraline. 9. Rosuvastatin. REVIEW OF SYSTEMS: Negative x10 systems reviewed except as stated in history of present illness. PHYSICAL EXAMINATION: VITAL SIGNS: Temperature 98.2, pulse 55, blood pressure 129/62. GENERAL: She is in no acute distress. Alert and oriented x3. HEENT: Eyes have no scleral icterus. Oropharynx is clear without lesions. No cervical or supraclavicular lymphadenopathy. LUNGS: Clear to auscultation bilaterally. HEART: Regular rate and rhythm without murmur. ABDOMEN: Soft, nontender, and nondistended. Bowel sounds are present. EXTREMITIES: 2+ pitting lower extremity edema. Cranial nerves are grossly intact. LABORATORY DATA: White blood cell count 6.0; hemoglobin is 7.8, down from 9.2; MCV is 77; platelets 226. Iron 14, TIBC 380, ferritin 120, bilirubin 0.5, AST 22, ALT 27, alkaline phosphatase 122, creatinine 2.39, and albumin 2.9. IMPRESSION: 1. Iron deficiency anemia. She has microcytic indices and low iron; however, the ferritin is over 100 indicating normal iron stores, so she likely has a multifactorial anemia. She has never had upper or lower endoscopy, and this should be done; however, given her acute exacerbation of her congestive heart failure, having stopped all her medications last month, endoscopy can be delayed until she has her cardiac status optimized. 2. Congestive heart failure and coronary artery disease. Her ejection fraction is 15%-20%. Again, she quit taking all her medications a month ago due to insurance problems. She has been restarted on her medications and she is undergoing diuresis. RECOMMENDATIONS: EGD and colonoscopy can be performed in the future after her cardiac status is optimized. She should get stabilized again on her medications and she can in the meantime receive iron supplementation and IV iron if needed. She has had no overt bleeding. Job ID: [id number]
[2020-06-14] MEDS: Melatonin 3 MG TAB PO PRN ×2 (00:33→21:57)
[2020-06-14 05:05] LABS: #Eosinphils 0.1 thou/uL (0.0-0.7); #Lymphocytes 1.1 thou/uL (1.20-3.40); #Monocytes 0.7 thou/uL (0.11-0.59); #Neutrophils 5.7 thou/uL (1.40-6.50); %Basophils 0.3 % (0.0-1.0); %Eosinophils 1.1 % (0.0-10.0); %Monocytes 8.7 % (0.0-10.0); %Neutrophils 74.9 % (42.0-75.0); Hemoglobin 8.2 g/dL (12.0-16.0); Mean Corpuscular HGB CONC 31.2 g/dL (32.0-36.0); Mean Corpuscular Hemoglobin 24.4 pg (27.0-31.0); Mean Corpuscular Volume 78.2 fL (78.0-98.0); Mean Platelet Volume 9.2 fL (7.4-10.4); Platelet Count 231 thou/uL (130-400); RBC Distribution Width 18.8 % (11.5-14.5); Red Blood Cell (RBC) Count 3.34 mill/uL (4.20-5.40); White Blood Cell (WBC) Count 7.6 thou/uL (4.8-10.8)
[2020-06-14 05:29] LABS: Anion Gap 15 mmol/L (10-20); BUN (Urea Nitrogen) 36 mg/dL (9.8-20.1); Calc. Creatinine Clearance 24 mL/min (70-130); Calcium 7.9 mg/dL (7.8-10.44); Carbon Dioxide 24 mmol/L (22-29); Chloride 102 mmol/L (98-107); Glucose 127 mg/dL (70-105); Potassium 3.1 mmol/L (3.5-5.1); Sodium 138 mmol/L (136-145)
[2020-06-14] MEDS: Furosemide 100 MG/10 ML VIAL SLOW IVP SCH ×2 (05:57→14:47)
[2020-06-14] MEDS: Ferrous Sulfate 325 MG TAB PO SCH ×2 (09:12→16:28)
[2020-06-14] MEDS: Aspirin Chewable 81 MG TAB PO SCH (09:12)
[2020-06-14] MEDS: hydrALAZINE 25 MG TAB PO SCH ×3 (09:13→21:57)
[2020-06-14] MEDS: Pantoprazole 40 MG VIAL IVP SCH ×2 (09:13→21:58)
[2020-06-14] MEDS: Carvedilol 6.25 MG TAB PO SCH (09:13)
[2020-06-14] MEDS: Isosorbide Dinitrate 20 MG TAB PO SCH ×3 (09:13→21:58)
--- NOTE | 2020-06-14 10:42 | PRG ---
DATE OF SERVICE: 06/14/2020 SUBJECTIVE: Ms. Bowers is a 60-year-old white female, who was admitted for shortness of breath. She was found to be in CHF. We are following her up for her acute kidney injury on top of a possible chronic renal failure. Breathing is better. In the interim, she had a cardiac echo, which showed an EF of 15% to 20%. Cardiology saw the patient, recommended increasing Lasix to 80 mg IV q.12. The patient's breathing is improving. The patient currently denies any associated chest pain at the present time. OBJECTIVE: VITAL SIGNS: Blood pressure is 139/69, heart rate 61, respiratory rate 16, temperature 97.4, and O2 saturation 96%. GENERAL: Awake, sitting comfortable, not in overt distress. SKIN: Adequate turgor. HEENT: Slightly pale conjunctivae. Anicteric sclerae. NECK: No neck mass. No carotid bruits. No JVD. LUNGS: Decreased breath sounds. HEART: Normal sinus rhythm. No murmur. No gallops. No rubs. ABDOMEN: Globular, soft, and nontender. No masses. EXTREMITIES: Positive for edema. MEDICATIONS: Medications of June 14, 2020, was reviewed. LABORATORY DATA: Laboratories of June 14, 2020, white count 7.6 and hemoglobin 8.2. Sodium 138, potassium 3.1, chloride 102, carbon dioxide 24, BUN 36, creatinine 2.65, glucose 127, and calcium 7.9. Urinalysis of June 12, 2020, showed protein. No pigmented granular cast. Cardiac echo showed an EF of 15% to 20%. ASSESSMENT AND PLAN: 1. Acute kidney injury - superimposed hemodynamically-mediated renal dysfunction secondary to her underlying congestive heart failure as well as from the current diuretic regimen. Please note, diuretics was increased to 80 mg IV q.12 this morning. We will continue to observe. I do not find any indication for any emergent hemodialysis with this patient. Adjust diuretics as needed. 2. Anemia. Gastroenterology evaluating the patient. 3. Mild hypokalemia. KCl 40 mEq one tablet now. We will recheck CBC and basic metabolic in a.m. Job ID: [id number]
--- NOTE | 2020-06-14 10:54 | PDOC.HOSPP ---
- Subjective Encounter Date: 06/14/20 (f/u systolic HF) Encounter Time: 10:53 Subjective: pt today more comfortable with breathing. c/o feet hurting - states it occurs at home as well, right not it's more intense. She reports the most pain with taking steps. She is able to lay flatter. She denies any other pain. - Objective Vital Signs & Weight: Vital Signs (12 hours) Temp Pulse Resp BP BP Pulse Ox 06/14/20 09:10 96 06/14/20 07:35 97.4 F L 61 16 139/69 96 06/14/20 04:46 97 06/14/20 04:15 97.5 F L 58 L 16 171/86 H 99 06/14/20 00:00 98.4 F 60 16 158/81 H 97 Weight Weight 149 lb 9.6 oz I&O: 06/13/20 06/14/20 06/15/20 06:59 06:59 06:59 Intake Total 240 1560 Output Total 700 1000 Balance -460 560 Result Diagrams: 06/14/20 04:47 06/14/20 04:47 Additional Labs: Accuchecks 06/13/20 06/13/20 20:36 16:49 POC Glucose 188 H 146 H EKG Reviewed by me: Yes (tele - sinus 50-60's and 10 beats PAT) Hospitalist ROS - Medication Medications: Active Medications Generic Name Dose Route Start Last Admin Trade Name Freq PRN Reason Stop Dose Admin Aspirin 81 mg 06/13/20 09:00 06/14/20 09:12 Aspirin Chewable 81 Mg Tab PO 81 mg DAILY LOLIS Administration Carvedilol 6.25 mg 06/12/20 21:00 06/14/20 09:13 Carvedilol 6.25 Mg Tab PO 6.25 mg BID LOLIS Administration Ferrous Sulfate 325 mg 06/13/20 17:00 06/14/20 09:12 Ferrous Sulfate 325 Mg Tab PO 325 mg BID-WM LOLIS Administration Furosemide 80 mg 06/14/20 06:00 06/14/20 05:57 Furosemide 100 Mg/10 Ml Vial SLOW IVP 80 mg 0600,1400 LOLIS Administration Hydralazine HCl 50 mg 06/12/20 15:00 06/14/20 09:13 Hydralazine 25 Mg Tab PO 50 mg TID LOLIS Administration Isosorbide Dinitrate 20 mg 06/12/20 15:00 06/14/20 09:13 Isosorbide Dinitrate 20 Mg Tab PO 20 mg TID LOLIS Administration Melatonin 6 mg 06/13/20 23:51 06/14/20 00:33 Melatonin 3 Mg Tab PO 6 mg HSPRN PRN Administration Insomnia Pantoprazole Sodium 40 mg 06/13/20 21:00 06/14/20 09:13 Pantoprazole 40 Mg Vial IVP 40 mg Q12HR LOLIS Administration Rosuvastatin Calcium 40 mg 06/12/20 21:00 06/13/20 20:36 Rosuvastatin 20 Mg Tab PO 40 mg HS LOLIS Administration Sertraline HCl 100 mg 06/13/20 09:00 06/14/20 09:13 Sertraline Hcl 100 Mg Tab PO 100 mg DAILY LOLIS Administration Sodium Chloride 10 ml 06/13/20 20:23 06/13/20 20:38 Sodium Chloride 0.9% (Pf) 10 Ml Vial FS 10 ml Q12HR PRN Administration PROTONIX - Exam General Appearance: NAD Heart: RRR, no murmur Respiratory: no wheezes, no rales, no ronchi Gastrointestinal: soft, non-tender, non-distended, normal bowel sounds Extremities - other findings: 3+ edema bilateral - appears about the same as yesterday Psychiatric: normal affect Hosp A/P (1) Decompensated heart failure Code(s): I50.9 - HEART FAILURE, UNSPECIFIED Status: Acute (2) Hypertension Code(s): I10 - ESSENTIAL (PRIMARY) HYPERTENSION Status: Chronic Qualifiers: Hypertension type: essential hypertension Qualified Code(s): I10 - Essential (primary) hypertension (3) Anemia Code(s): D64.9 - ANEMIA, UNSPECIFIED Status: Chronic Qualifiers: Anemia type: unspecified type Qualified Code(s): D64.9 - Anemia, unspecified (4) Chronic kidney disease (CKD) Code(s): N18.9 - CHRONIC KIDNEY DISEASE, UNSPECIFIED Status: Acute Qualifiers: Chronic kidney disease stage: stage 4 (severe) Qualified Code(s): N18.4 - Chronic kidney disease, stage 4 (severe) (5) CAD (coronary artery disease) Code(s): I25.10 - ATHSCL HEART DISEASE OF [place] CORONARY ARTERY W/O ANG PCTRS Status: Chronic (6) Tobacco abuse Code(s): Z72.0 - TOBACCO USE Status: Chronic (7) Type 2 diabetes mellitus Status: Chronic (8) Hypokalemia Code(s): E87.6 - HYPOKALEMIA Status: Acute - Plan Acute decompensated systolic HF - on beta zaida, IV lasix, nitrate - appreciate Cards consult - echo shows EF severely depressed estimated at 15-20% - no VICENTE-I/ARB due to renal function Anemia - stable with positive FOBT - appreciate GI consult - will need EGD/colo at some point when stable and able to undergo anesthesia - no indication for transfusion, transfuse if sx or less than 7 - will continue IV protonix for now - iron replacement CKD - worsening renal function compared to prior visits - Renal US shows cortical thinning, no obstruction - Appreciate nephrology consult - no indication for dialysis Hypokalemia - replace with 40 meq potassium Mood d/o - continue home med dvt prophy - scd's gi prophy - covering with IV protonix for positive FOBT and anemia code status full reviewed plan of care with patient, no questions or further needs at end of eval. pt at high risk in current condition
[2020-06-14] MEDS ORDERED: Potassium Chloride 20 MEQ TAB PO SCH (12:15)
[2020-06-14] MEDS: DOBUTamine 500 mg/250 ml 250 ML IVPB SCH (16:29)
--- NOTE | 2020-06-14 16:56 | PRG ---
DATE OF SERVICE: 06/14/2020 SUBJECTIVE: Her shortness of breath has improved. She still has lower extremity edema, but this seems to be heading in the right direction. OBJECTIVE: VITAL SIGNS: Temperature 97.6, pulse 54, blood pressure 151/72. GENERAL: She is in no acute distress. Alert and oriented x3. LUNGS: Clear to auscultation bilaterally. HEART: Regular rate and rhythm without murmur. ABDOMEN: Soft, nontender, and nondistended. Bowel sounds are present. EXTREMITIES: 2+ pitting lower extremity edema. IMPRESSION: 1. Decompensated congestive heart failure. 2. Acute renal failure. 3. Iron deficiency anemia. RECOMMENDATIONS: EGD and colonoscopy should be performed in the future after her cardiac status has been optimized. She likely should be stabilized on her routine medications for a while before pursuing anesthesia. She quit taking all her medications a month ago due to insurance problems. Job ID: [id number]
[2020-06-14] MEDS: Rosuvastatin 20 MG TAB PO SCH (21:57)
[2020-06-15 05:07] LABS: #Monocytes 0.6 thou/uL (0.11-0.59); #Neutrophils 5.4 thou/uL (1.40-6.50); %Basophils 0.1 % (0.0-1.0); %Eosinophils 0.7 % (0.0-10.0); %Lymphocytes 14.6 % (21.0-51.0); %Monocytes 7.8 % (0.0-10.0); %Neutrophils 76.8 % (42.0-75.0); Mean Corpuscular Hemoglobin 23.7 pg (27.0-31.0); Mean Corpuscular Volume 76.2 fL (78.0-98.0); Mean Platelet Volume 10.3 fL (7.4-10.4); Platelet Count 219 thou/uL (130-400); RBC Distribution Width 19.1 % (11.5-14.5); Red Blood Cell (RBC) Count 3.38 mill/uL (4.20-5.40)
[2020-06-15] MEDS: Furosemide 100 MG/10 ML VIAL SLOW IVP SCH ×2 (05:38→14:32)
[2020-06-15 05:39] LABS: Anion Gap 17 mmol/L (10-20); BUN (Urea Nitrogen) 37 mg/dL (9.8-20.1); Calc. Creatinine Clearance 24 mL/min (70-130); Calcium 8.1 mg/dL (7.8-10.44); Carbon Dioxide 24 mmol/L (22-29); Chloride 100 mmol/L (98-107); Glucose 114 mg/dL (70-105); Sodium 138 mmol/L (136-145)
--- NOTE | 2020-06-15 08:28 | PDOC.HOSPP ---
- Subjective Encounter Date: 06/15/20 (f/u systolic HF) Encounter Time: 08:26 Subjective: Pt admitted for systolic heart failure with significant volume overload. pt reports breathing is better. Poor sleep overnight -states it is not new for her. She reports her legs feel better. She denies any new sx. Dobutamine started yesterday for bradycardia, currently pt is hypertensive. - Objective Vital Signs & Weight: Vital Signs (12 hours) Temp Pulse Resp BP BP BP Pulse Ox 06/15/20 07:50 98.2 F 62 16 189/86 H 98 06/15/20 04:00 98.5 F 70 20 185/80 H 97 06/14/20 23:37 98.4 F 70 23 H 156/72 H 97 06/14/20 21:57 59 L 167/77 H Weight Weight 147 lb 6 oz I&O: 06/14/20 06/15/20 06/16/20 06:59 06:59 06:59 Intake Total 1560 768 600 Output Total 1000 1875 500 Balance 560 -1107 100 Result Diagrams: 06/15/20 04:46 06/15/20 04:46 Additional Labs: Accuchecks 06/14/20 06/14/20 16:23 10:52 POC Glucose 134 H 161 H EKG Reviewed by me: Yes (tele =- sinus 60s, yesterday was in the 40's and dobutamine started) Hospitalist ROS - Medication Medications: Active Medications Generic Name Dose Route Start Last Admin Trade Name Freq PRN Reason Stop Dose Admin Aspirin 81 mg 06/13/20 09:00 06/14/20 09:12 Aspirin Chewable 81 Mg Tab PO 81 mg DAILY LOLIS Administration Ferrous Sulfate 325 mg 06/13/20 17:00 06/14/20 16:28 Ferrous Sulfate 325 Mg Tab PO 325 mg BID-WM LOLIS Administration Furosemide 80 mg 06/14/20 06:00 06/15/20 05:38 Furosemide 100 Mg/10 Ml Vial SLOW IVP 80 mg 0600,1400 LOLIS Administration Hydralazine HCl 50 mg 06/12/20 15:00 06/14/20 21:57 Hydralazine 25 Mg Tab PO 50 mg TID LOLIS Administration Dobutamine HCl/Dextrose 250 mls @ 10.179 mls/hr 06/14/20 16:00 06/14/20 16:29 Dobutamine 500 Mg/250 Ml IVPB 250 mls INF LOLIS Administration 5 MCG/KG/MIN Isosorbide Dinitrate 20 mg 06/12/20 15:00 06/14/20 21:58 Isosorbide Dinitrate 20 Mg Tab PO 20 mg TID LOLIS Administration Melatonin 6 mg 06/13/20 23:51 06/14/20 21:57 Melatonin 3 Mg Tab PO 6 mg HSPRN PRN Administration Insomnia Pantoprazole Sodium 40 mg 06/13/20 21:00 06/14/20 21:58 Pantoprazole 40 Mg Vial IVP 40 mg Q12HR LOLIS Administration Rosuvastatin Calcium 40 mg 06/12/20 21:00 06/14/20 21:57 Rosuvastatin 20 Mg Tab PO 40 mg HS LOLIS Administration Sertraline HCl 100 mg 06/13/20 09:00 06/14/20 09:13 Sertraline Hcl 100 Mg Tab PO 100 mg DAILY LOLIS Administration Sodium Chloride 10 ml 06/13/20 20:23 06/13/20 20:38 Sodium Chloride 0.9% (Pf) 10 Ml Vial FS 10 ml Q12HR PRN Administration PROTONIX - Exam General Appearance: NAD Heart: RRR Heart - other findings: 2/6 MADDY most audible at LLSB Respiratory: no wheezes, no rales, no ronchi Gastrointestinal: soft, non-tender, non-distended, normal bowel sounds Extremities - other findings: 3+ bilateral edema - no change Psychiatric: normal affect Hosp A/P (1) Decompensated heart failure Code(s): I50.9 - HEART FAILURE, UNSPECIFIED Status: Acute (2) Hypertension Code(s): I10 - ESSENTIAL (PRIMARY) HYPERTENSION Status: Chronic Qualifiers: Hypertension type: essential hypertension Qualified Code(s): I10 - Essential (primary) hypertension (3) Anemia Code(s): D64.9 - ANEMIA, UNSPECIFIED Status: Chronic Qualifiers: Anemia type: unspecified type Qualified Code(s): D64.9 - Anemia, unspecified (4) Chronic kidney disease (CKD) Code(s): N18.9 - CHRONIC KIDNEY DISEASE, UNSPECIFIED Status: Acute Qualifiers: Chronic kidney disease stage: stage 4 (severe) Qualified Code(s): N18.4 - Chronic kidney disease, stage 4 (severe) (5) CAD (coronary artery disease) Code(s): I25.10 - ATHSCL HEART DISEASE OF [place] CORONARY ARTERY W/O ANG PCTRS Status: Chronic (6) Tobacco abuse Code(s): Z72.0 - TOBACCO USE Status: Chronic (7) Type 2 diabetes mellitus Status: Chronic (8) Hypokalemia Code(s): E87.6 - HYPOKALEMIA Status: Acute - Plan Acute decompensated systolic HF - now on dobutamine, wean per Cardiology - on beta zaida, IV lasix, nitrate - appreciate Cards consult - echo shows EF severely depressed estimated at 15-20% - no VICENTE-I/ARB due to renal function Anemia - stable with positive FOBT - appreciate GI consult - will need EGD/colo at some point when stable and able to undergo anesthesia - no indication for transfusion, transfuse if sx or less than 7 - will continue IV protonix for now - iron replacement CKD - renal function appears stable, c/w cardiorenal syndrome - Renal US shows cortical thinning, no obstruction - Appreciate nephrology consult - no indication for dialysis Hypokalemia - replace with 40 meq potassium x 2 doses today Mood d/o - continue home med dvt prophy - scd's gi prophy - covering with IV protonix for positive FOBT and anemia code status full reviewed plan of care with patient, no questions or further needs at end of eval. pt at high risk in current condition
[2020-06-15] MEDS ORDERED: Potassium Chloride 20 MEQ TAB PO SCH (08:30)
--- NOTE | 2020-06-15 08:43 | PRG ---
DATE OF SERVICE: 06/15/2020 SUBJECTIVE: Ms. Bowers is a 60-year-old white female, admitted for CHF. She is currently on diuretic regimen. We are following up this patient for acute kidney injury on top of her chronic renal failure. Lasix has been recently increased to 80 mg IV q.12. Renal function is relatively stable with increased dose of Lasix. No new complaints today. No chest pain or shortness of breath. OBJECTIVE: VITAL SIGNS: Blood pressure is 189/86, heart rate 62, respiratory rate 16, temperature 98.2, O2 saturations 98% room air. GENERAL: Awake, sitting comfortable, not in distress. SKIN: Adequate turgor. HEENT: She has a slightly pale conjunctivae. Anicteric sclerae. No neck mass. No carotid bruits. No JVD. CHEST: No deformities. LUNGS: Clear breath sounds. No wheezing. No crackles. HEART: Normal sinus rhythm. No murmur. No gallops. No rubs. ABDOMEN: Globular, soft, nontender. No masses. EXTREMITIES: No edema. No deformities. MEDICATIONS: Medications of June 15, 2020, reviewed. LABORATORY DATA: Laboratories of June 15, 2020; white count 7, hemoglobin 8. Sodium 138, potassium 3, chloride 100, carbon dioxide 24, BUN 37, creatinine 2.72, GFR 18 mL/minute, calcium 8.1. ASSESSMENT AND PLAN: 1. Acute kidney injury/chronic renal failure. Stable renal function. Creatinine noted at 2.72 and yesterday, this was 2.65. GFR is relatively unchanged at 18 mL/minute. Continue current diuretic regimen. Adjust as needed. No indication for any dialytic intervention. 2. Anemia, currently on iron supplementation. 3. Mild hypokalemia. KCl 40 mEq one tab now. 4. Congestive heart failure-currently on diuretic regimen. Cardiology is following. 5. Recheck CBC and basic metabolic profile in a.m. Job ID: [id number]
[2020-06-15] MEDS ORDERED: Metolazone 5 MG TAB PO SCH (08:45)
[2020-06-15] MEDS: Aspirin Chewable 81 MG TAB PO SCH (09:54)
[2020-06-15] MEDS: Ferrous Sulfate 325 MG TAB PO SCH ×2 (09:54→17:47)
[2020-06-15] MEDS: Isosorbide Dinitrate 20 MG TAB PO SCH ×3 (09:54→21:23)
[2020-06-15] MEDS: Pantoprazole 40 MG VIAL IVP SCH ×2 (09:54→21:24)
[2020-06-15] MEDS: hydrALAZINE 25 MG TAB PO SCH ×3 (09:59→21:22)
--- NOTE | 2020-06-15 13:52 | PRG ---
DATE OF SERVICE: SUBJECTIVE: Robinson has had no abdominal pain or diarrhea or constipation. She has had no overt GI bleeding. OBJECTIVE: Her abdomen is soft, nontender, and nondistended. Bowel sounds are present. IMPRESSION: 1. Cardiomyopathy. She has been started on dobutamine to improve her contractility. She had been off her medications for months prior to admission. 2. Iron-deficiency anemia. RECOMMENDATIONS: 1. She should eventually undergo EGD and colonoscopy for evaluation of her iron-deficiency anemia. 2. We will plan this for her to follow up as an outpatient in the next 4 to 6 weeks to reassess after her cardiac status is further improved and stabilized. There is no urgent need for immediate endoscopic intervention. 3. I will sign off for now. Please call if GI can be of assistance. Job ID: [id number]
[2020-06-15] MEDS: Melatonin 3 MG TAB PO PRN (21:22)
[2020-06-15] MEDS: Rosuvastatin 20 MG TAB PO SCH (21:23)
[2020-06-16] MEDS: DOBUTamine 500 mg/250 ml 250 ML IVPB SCH (03:09)
[2020-06-16 05:15] LABS: #Eosinphils 0.1 thou/uL (0.0-0.7); #Lymphocytes 0.7 thou/uL (1.20-3.40); #Monocytes 0.6 thou/uL (0.11-0.59); %Basophils 0.5 % (0.0-1.0); %Eosinophils 0.8 % (0.0-10.0); %Monocytes 8.2 % (0.0-10.0); %Neutrophils 80.6 % (42.0-75.0); Hemoglobin 7.9 g/dL (12.0-16.0); Mean Corpuscular HGB CONC 31.1 g/dL (32.0-36.0); Mean Corpuscular Hemoglobin 24.1 pg (27.0-31.0); Mean Corpuscular Volume 77.5 fL (78.0-98.0); Mean Platelet Volume 9.3 fL (7.4-10.4); Platelet Count 214 thou/uL (130-400); RBC Distribution Width 19.1 % (11.5-14.5); Red Blood Cell (RBC) Count 3.28 mill/uL (4.20-5.40); White Blood Cell (WBC) Count 7.4 thou/uL (4.8-10.8)
[2020-06-16] MEDS: Furosemide 100 MG/10 ML VIAL SLOW IVP SCH ×2 (05:28→15:29)
[2020-06-16 05:33] LABS: Anion Gap 17 mmol/L (10-20); BUN (Urea Nitrogen) 40 mg/dL (9.8-20.1); Calc. Creatinine Clearance 23 mL/min (70-130); Calcium 8.5 mg/dL (7.8-10.44); Carbon Dioxide 29 mmol/L (22-29); Chloride 94 mmol/L (98-107); Glucose 148 mg/dL (70-105); Sodium 137 mmol/L (136-145)
[2020-06-16 05:36] LABS: Potassium 2.7 mmol/L (3.5-5.1)
[2020-06-16] MEDS ORDERED: Potassium Chloride 20 MEQ TAB PO SCH (06:45)
[2020-06-16] MEDS ORDERED: Potassium Chloride 20 MEQ in Premix Bag 1 BAG IVPB SCH (06:45)
[2020-06-16] MEDS: hydrALAZINE 25 MG TAB PO SCH ×3 (08:32→20:53)
[2020-06-16] MEDS: Aspirin Chewable 81 MG TAB PO SCH (08:33)
[2020-06-16] MEDS: Isosorbide Dinitrate 20 MG TAB PO SCH ×3 (08:33→20:54)
[2020-06-16] MEDS: Ferrous Sulfate 325 MG TAB PO SCH ×2 (08:33→17:03)
[2020-06-16] MEDS: Potassium Chloride 20 MEQ TAB PO SCH (08:34)
[2020-06-16] MEDS: Pantoprazole 40 MG VIAL IVP SCH ×2 (08:34→20:55)
--- NOTE | 2020-06-16 08:57 | PRG ---
DATE OF SERVICE: 06/16/2020 SUBJECTIVE: Ms. Bowers is a 60-year-old white female, who was admitted for shortness of breath secondary to CHF. We are following up this patient for her acute kidney injury on top of her chronic renal failure. She has superimposed hemodynamically-mediated renal dysfunction. Currently, on Lasix 80 mg IV q.12 for the CHF. No new complaints. Breathing is much improved. Leg edema is also much improved. OBJECTIVE: VITAL SIGNS: Blood pressure 186/86, heart rate 73, respiratory rate 15, temperature 98.3, O2 saturation 97%. GENERAL: Awake, alert, comfortable, not in overt distress. SKIN: Adequate turgor. HEENT: Pinkish conjunctivae. Anicteric sclerae. No neck mass. No carotid bruits. No JVD. CHEST: No deformities. LUNGS: Decreased breath sounds. HEART: Normal sinus rhythm. No murmurs, gallops, or rubs. ABDOMEN: Globular, soft, nontender. No masses. EXTREMITIES: Positive for edema. MEDICATIONS: Of June 16, 2020, reviewed. LABORATORIES: Of June 16, 2020; white count 7.4, hemoglobin 7.9. Sodium 137, potassium 2.7, chloride 94, carbon dioxide 29, BUN 40, creatinine 2.79, GFR 17 mL/minute, glucose 148, and calcium 8.5. ASSESSMENT AND PLAN: 1. Congestive heart failure, clinically improving. Currently, on a diuretic regimen. Cardiology is following. 2. Acute kidney injury/chronic renal failure, superimposed prerenal azotemia. Continue supportive care. There is no indication for any dialytic intervention. Adjust diuretics as needed. 3. Anemia, currently on iron supplementation. GI following. Recheck CBC and basic metabolic profile in a.m. Job ID: [id number]
[2020-06-16] MEDS ORDERED: Metolazone 5 MG TAB PO SCH (09:15)
[2020-06-16] MEDS ORDERED: Tamsulosin HCl 0.4 MG CAP PO SCH (09:30)
[2020-06-16] MEDS ORDERED: Iron Sucrose Complex 100 MG in Sodium Chloride 0.9% 100 ML IVPB SCH (09:45)
[2020-06-16] MEDS ORDERED: Iron, Sodium Ferric Gluconate 125 MG in Sodium Chloride 0.9% 100 ML IVPB SCH (10:00)
--- NOTE | 2020-06-16 17:26 | PDOC.HOSPP ---
- Subjective Encounter Date: 06/16/20 Encounter Time: 11:15 Subjective: Patient up in bed denies any complaints. - Objective Vital Signs & Weight: Vital Signs (12 hours) Temp Pulse Resp BP BP Pulse Ox 06/16/20 15:27 98.3 F 72 16 186/80 H 97 06/16/20 11:32 98.4 F 64 16 135/63 95 06/16/20 08:32 70 06/16/20 08:00 97 06/16/20 07:23 98.3 F 70 15 186/86 H 97 Weight Weight 141 lb 8 oz I&O: 06/15/20 06/16/20 06/17/20 06:59 06:59 06:59 Intake Total 768 600 960 Output Total 9424 350 9980 Balance -1107 100 -1540 Result Diagrams: 06/16/20 04:48 06/16/20 04:48 Additional Labs: Accuchecks 06/16/20 06/15/20 10:51 21:20 POC Glucose 186 H 201 H Hospitalist ROS - Review of Systems Cardiovascular: denies: chest pain, palpitations, orthopnea, paroxysmal noc. dyspnea, edema, light headedness, other Gastrointestinal: denies: nausea, vomiting, abdominal pain, diarrhea, constipation, melena, hematochezia, other Genitourinary: denies: dysuria, frequency, incontinence, hematuria, retention, other - Medication Medications: Active Medications Generic Name Dose Route Start Last Admin Trade Name Freq PRN Reason Stop Dose Admin Aspirin 81 mg 06/13/20 09:00 06/16/20 08:33 Aspirin Chewable 81 Mg Tab PO 81 mg DAILY LOLIS Administration Ferrous Sulfate 325 mg 06/13/20 17:00 06/16/20 17:03 Ferrous Sulfate 325 Mg Tab PO 325 mg BID-WM LOLIS Administration Furosemide 80 mg 06/14/20 06:00 06/16/20 15:29 Furosemide 100 Mg/10 Ml Vial SLOW IVP 80 mg 0600,1400 LOLIS Administration Hydralazine HCl 100 mg 06/15/20 09:00 06/16/20 15:30 Hydralazine 25 Mg Tab PO 100 mg TID LOLIS Administration Dobutamine HCl/Dextrose 250 mls @ 5.089 mls/hr 06/14/20 16:00 06/16/20 03:09 Dobutamine 500 Mg/250 Ml IVPB 250 mls INF LOLIS Administration 2.5 MCG/KG/MIN Isosorbide Dinitrate 40 mg 06/15/20 09:00 06/16/20 15:31 Isosorbide Dinitrate 20 Mg Tab PO 40 mg TID LOLIS Administration Melatonin 6 mg 06/13/20 23:51 06/15/20 21:22 Melatonin 3 Mg Tab PO 6 mg HSPRN PRN Administration Insomnia Pantoprazole Sodium 40 mg 06/13/20 21:00 06/16/20 08:34 Pantoprazole 40 Mg Vial IVP 40 mg Q12HR LOLIS Administration Potassium Chloride 40 meq 06/16/20 08:00 06/16/20 08:34 Potassium Chloride 20 Meq Tab PO 06/17/20 08:01 40 meq QAM-WM LOLIS Administration Rosuvastatin Calcium 40 mg 06/12/20 21:00 06/15/20 21:23 Rosuvastatin 20 Mg Tab PO 40 mg HS LOLIS Administration Sertraline HCl 100 mg 06/13/20 09:00 06/16/20 08:33 Sertraline Hcl 100 Mg Tab PO 100 mg DAILY LOLIS Administration Sodium Chloride 10 ml 06/13/20 20:23 06/13/20 20:38 Sodium Chloride 0.9% (Pf) 10 Ml Vial FS 10 ml Q12HR PRN Administration PROTONIX - Exam Neck: negative: supple, symmetric, no JVD, no thyromegaly, no lymphadenopathy, no carotid bruit, JVD Heart: negative: RRR, no murmur, no gallops, no rubs, normal peripheral pulses, irregular, diminshed peripheral pulses, murmur present, II/IV, III/IV Respiratory: negative: CTAB, no wheezes, no rales, no ronchi, normal chest expansion, no tachypnea, normal percussion, rales, rhonchi, tachypneic, wheezes Gastrointestinal: negative: soft, non-tender, non-distended, normal bowel sounds, no palpable masses, no hepatomegaly, no splenomegaly, no bruit, no guarding, no rigidity, tender to palpation, distended, diminished bowl sounds, voluntary guarding Extremities: 1+ LE edema Hosp A/P - Plan Hosp A/P (1) Decompensated heart failure Code(s): I50.9 - HEART FAILURE, UNSPECIFIED Status: Acute (2) Hypertension Code(s): I10 - ESSENTIAL (PRIMARY) HYPERTENSION Status: Chronic Qualifiers: Hypertension type: essential hypertension Qualified Code(s): I10 - Essential (primary) hypertension (3) Anemia Code(s): D64.9 - ANEMIA, UNSPECIFIED Status: Chronic Qualifiers: Anemia type: unspecified type Qualified Code(s): D64.9 - Anemia, unspecified (4) Chronic kidney disease (CKD) Code(s): N18.9 - CHRONIC KIDNEY DISEASE, UNSPECIFIED Status: Acute Qualifiers: Chronic kidney disease stage: stage 4 (severe) Qualified Code(s): N18.4 - Chronic kidney disease, stage 4 (severe) (5) CAD (coronary artery disease) Code(s): I25.10 - ATHSCL HEART DISEASE OF [place] CORONARY ARTERY W/O ANG PCTRS Status: Chronic (6) Tobacco abuse Code(s): Z72.0 - TOBACCO USE Status: Chronic (7) Type 2 diabetes mellitus Status: Chronic (8) Hypokalemia Code(s): E87.6 - HYPOKALEMIA Status: Acute - Plan Acute decompensated systolic HF - now on dobutamine, wean per Cardiology - on beta zaida, IV lasix, nitrate - appreciate Cards consult - echo shows EF severely depressed estimated at 15-20% - no VICENTE-I/ARB due to renal function Patient being weaned off dobutamine. Blood pressures significantly high. Anemia - stable with positive FOBT - appreciate GI consult -patient will have EGD colonoscopy as outpatient. - no indication for transfusion, transfuse if sx or less than 7 - will continue IV protonix for now - iron replacement CKD - renal function appears stable, c/w cardiorenal syndrome - Renal US shows cortical thinning, no obstruction - Appreciate nephrology consult - no indication for dialysis Hypokalemia - replace with 40 meq potassium x 2 doses today Mood d/o - continue home med dvt prophy - scd's gi prophy - covering with IV protonix for positive FOBT and anemia code status full
[2020-06-16] MEDS: Melatonin 3 MG TAB PO PRN (20:54)
[2020-06-16] MEDS: Rosuvastatin 20 MG TAB PO SCH (20:54)
[2020-06-17 04:23] LABS: #Eosinphils 0.1 thou/uL (0.0-0.7); #Monocytes 0.8 thou/uL (0.11-0.59); #Neutrophils 5.1 thou/uL (1.40-6.50); %Basophils 0.5 % (0.0-1.0); %Eosinophils 0.8 % (0.0-10.0); %Lymphocytes 14.8 % (21.0-51.0); %Neutrophils 72.8 % (42.0-75.0); Hemoglobin 7.9 g/dL (12.0-16.0); Mean Corpuscular HGB CONC 30.4 g/dL (32.0-36.0); Mean Corpuscular Hemoglobin 23.4 pg (27.0-31.0); Mean Corpuscular Volume 76.9 fL (78.0-98.0); Mean Platelet Volume 10.3 fL (7.4-10.4); Platelet Count 225 thou/uL (130-400); RBC Distribution Width 19.2 % (11.5-14.5); Red Blood Cell (RBC) Count 3.38 mill/uL (4.20-5.40); White Blood Cell (WBC) Count 6.9 thou/uL (4.8-10.8)
[2020-06-17 04:44] LABS: Anion Gap 19 mmol/L (10-20); BUN (Urea Nitrogen) 37 mg/dL (9.8-20.1); Calc. Creatinine Clearance 21 mL/min (70-130); Calcium 8.6 mg/dL (7.8-10.44); Carbon Dioxide 30 mmol/L (22-29); Chloride 91 mmol/L (98-107); Glucose 109 mg/dL (70-105); Sodium 137 mmol/L (136-145)
[2020-06-17 05:01] LABS: Potassium 2.8 mmol/L (3.5-5.1)
[2020-06-17] MEDS: Furosemide 100 MG/10 ML VIAL SLOW IVP SCH ×2 (06:06→19:31)
[2020-06-17] MEDS: Potassium Chloride 20 MEQ TAB PO SCH (06:07)
[2020-06-17] MEDS: Isosorbide Dinitrate 20 MG TAB PO SCH ×3 (08:03→21:41)
[2020-06-17] MEDS: Ferrous Sulfate 325 MG TAB PO SCH ×2 (08:03→19:32)
[2020-06-17] MEDS: hydrALAZINE 25 MG TAB PO SCH ×3 (08:03→21:41)
[2020-06-17] MEDS: Aspirin Chewable 81 MG TAB PO SCH (08:03)
[2020-06-17] MEDS: Tamsulosin HCl 0.4 MG CAP PO SCH (08:04)
[2020-06-17] MEDS: Pantoprazole 40 MG VIAL IVP SCH (08:04)
[2020-06-17] MEDS ORDERED: Furosemide 100 MG/10 ML VIAL SLOW IVP SCH (08:45)
--- NOTE | 2020-06-17 09:04 | PRG ---
DATE OF SERVICE: SUBJECTIVE: Ms. Bowers is a 60-year-old white female, who was admitted for CHF. She had a severely decreased EF. She has been diuresed with Lasix 80 mg IV q.12 for the last several days. She was given one time dose of metolazone and she produced a total of 4 L of urine output the next 24 hours. Her breathing is improved. She is on IV dobutamine. Cardiology is following. We are following up this patient for her acute kidney injury on top of her chronic renal failure. OBJECTIVE: VITAL SIGNS: Blood pressure 176/80, heart rate 77, respiratory rate 16, temperature 98.5, O2 saturation 96%. GENERAL: Awake, alert, comfortable, not in distress. SKIN: Adequate turgor. HEENT: Pinkish conjunctivae. Anicteric sclerae. NECK: No neck mass. No carotid bruits. No JVD. CHEST: No deformities. LUNGS: Clear breath sounds. HEART: Normal sinus rhythm. No murmur. No gallops. No rubs. ABDOMEN: Globular, soft, nontender. No masses. EXTREMITIES: Positive for trace edema. No deformities. MEDICATIONS: Medications of June 17, 2020, was reviewed. LABORATORY DATA: Laboratories of June 17, 2020; white count 6.9, hemoglobin 7.9. Sodium 137, potassium 2.8, chloride 91, carbon dioxide 30, BUN is 37, creatinine is 2.89, GFR 17 mL/minute, glucose 109, calcium 8.6. ASSESSMENT AND PLAN: 1. Congestive heart failure/decreased EF-continue current diuretic regimen. Adjust Lasix from 80 to 40 mg IV q.12. Status post metolazone. 2. Acute kidney injury on top of her chronic renal failure. Creatinine slightly higher at 2.89 from 2.79 yesterday. We adjusted the Lasix to 40 mg IV q.12 off metolazone. Continue supportive care. There is no indication for any dialytic intervention. 3. Mild hypokalemia. P.r.n. potassium replacement. We will recheck CBC and basic met in a.m. Job ID: [id number]
[2020-06-17] MEDS: Carvedilol 6.25 MG TAB PO SCH (19:31)
[2020-06-17] MEDS: Rosuvastatin 10 MG TAB PO SCH (21:41)
[2020-06-18 05:03] LABS: #Eosinphils 0.1 thou/uL (0.0-0.7); #Lymphocytes 1.2 thou/uL (1.20-3.40); #Monocytes 0.7 thou/uL (0.11-0.59); #Neutrophils 4.4 thou/uL (1.40-6.50); %Basophils 0.5 % (0.0-1.0); %Eosinophils 1.6 % (0.0-10.0); %Lymphocytes 18.5 % (21.0-51.0); %Monocytes 10.2 % (0.0-10.0); %Neutrophils 69.2 % (42.0-75.0); Mean Corpuscular HGB CONC 32.1 g/dL (32.0-36.0); Mean Corpuscular Hemoglobin 24.3 pg (27.0-31.0); Mean Corpuscular Volume 75.9 fL (78.0-98.0); Mean Platelet Volume 9.8 fL (7.4-10.4); Platelet Count 195 thou/uL (130-400); RBC Distribution Width 19.2 % (11.5-14.5); Red Blood Cell (RBC) Count 3.29 mill/uL (4.20-5.40); White Blood Cell (WBC) Count 6.3 thou/uL (4.8-10.8)
[2020-06-18 05:22] LABS: Anion Gap 16 mmol/L (10-20); BUN (Urea Nitrogen) 37 mg/dL (9.8-20.1); Calc. Creatinine Clearance 20 mL/min (70-130); Calcium 8.7 mg/dL (7.8-10.44); Carbon Dioxide 35 mmol/L (22-29); Chloride 85 mmol/L (98-107); Glucose 170 mg/dL (70-105); Sodium 133 mmol/L (136-145)
[2020-06-18] MEDS: Furosemide 100 MG/10 ML VIAL SLOW IVP SCH (05:27)
[2020-06-18 05:35] LABS: Potassium 2.6 mmol/L (3.5-5.1)
[2020-06-18] MEDS ORDERED: Potassium Chloride 20 MEQ TAB PO SCH ×2 (06:45→17:30)
[2020-06-18] MEDS ORDERED: Potassium Chloride 40 MEQ in Sodium Chloride 0.9% 250 ML 250 ML IVPB SCH (07:15)
[2020-06-18] MEDS: hydrALAZINE 25 MG TAB PO SCH ×3 (08:17→20:18)
[2020-06-18] MEDS: Tamsulosin HCl 0.4 MG CAP PO SCH (08:17)
[2020-06-18] MEDS: Isosorbide Dinitrate 20 MG TAB PO SCH ×3 (08:18→20:19)
[2020-06-18] MEDS: Aspirin Chewable 81 MG TAB PO SCH (08:18)
[2020-06-18] MEDS: Ferrous Sulfate 325 MG TAB PO SCH ×2 (08:19→17:01)
[2020-06-18] MEDS: Carvedilol 6.25 MG TAB PO SCH (08:20)
--- NOTE | 2020-06-18 08:48 | PDOC.HOSPP ---
- Subjective Encounter Date: 06/17/20 Encounter Time: 12:30 Subjective: Patient up in bed no complaints. - Objective Vital Signs & Weight: Vital Signs (12 hours) Temp Pulse Resp BP Pulse Ox 06/18/20 08:04 98.5 F 72 18 168/76 H 97 06/18/20 03:17 98.3 F 67 18 157/70 H 96 06/17/20 21:41 65 Weight Weight 132 lb 11.2 oz I&O: 06/17/20 06/18/20 06/19/20 06:59 06:59 06:59 Intake Total 1378 1934 Output Total 4408 3360 Balance -0535 -3029 Result Diagrams: 06/18/20 04:21 06/18/20 04:21 Additional Labs: Accuchecks 06/18/20 06/17/20 06/17/20 05:53 20:31 17:06 POC Glucose 155 H 167 H 150 H 06/17/20 11:49 POC Glucose 157 H Hospitalist ROS - Review of Systems Cardiovascular: denies: chest pain, palpitations, orthopnea, paroxysmal noc. dyspnea, edema, light headedness, other Gastrointestinal: denies: nausea, vomiting, abdominal pain, diarrhea, constipation, melena, hematochezia, other Genitourinary: denies: dysuria, frequency, incontinence, hematuria, retention, other - Medication Medications: Active Medications Generic Name Dose Route Start Last Admin Trade Name Freq PRN Reason Stop Dose Admin Aspirin 81 mg 06/13/20 09:00 06/18/20 08:18 Aspirin Chewable 81 Mg Tab PO 81 mg DAILY LOLIS Administration Carvedilol 6.25 mg 06/17/20 17:00 06/18/20 08:20 Carvedilol 6.25 Mg Tab PO 6.25 mg BID-WM LOLIS Administration Ferrous Sulfate 325 mg 06/13/20 17:00 06/18/20 08:19 Ferrous Sulfate 325 Mg Tab PO 325 mg BID-WM LOLIS Administration Furosemide 40 mg 06/17/20 14:00 06/18/20 05:27 Furosemide 100 Mg/10 Ml Vial SLOW IVP 40 mg 0600,1400 LOLIS Administration Hydralazine HCl 100 mg 06/15/20 09:00 06/18/20 08:17 Hydralazine 25 Mg Tab PO 100 mg TID LOLIS Administration Potassium Chloride 40 meq/ 270 mls @ 67.5 mls/hr 06/18/20 07:15 06/18/20 08:20 Sodium Chloride IVPB 06/18/20 11:14 270 mls NOW LOLIS Administration Isosorbide Dinitrate 40 mg 06/15/20 09:00 06/18/20 08:18 Isosorbide Dinitrate 20 Mg Tab PO 40 mg TID LOLIS Administration Melatonin 6 mg 06/13/20 23:51 06/16/20 20:54 Melatonin 3 Mg Tab PO 6 mg HSPRN PRN Administration Insomnia Pantoprazole Sodium 20 mg 06/18/20 09:00 06/18/20 08:18 Pantoprazole 40 Mg Tab PO 20 mg DAILY LOLIS Administration Rosuvastatin Calcium 10 mg 06/17/20 21:00 06/17/20 21:41 Rosuvastatin 10 Mg Tab PO 10 mg HS LOLIS Administration Sertraline HCl 100 mg 06/13/20 09:00 06/18/20 08:20 Sertraline Hcl 100 Mg Tab PO 100 mg DAILY LOLIS Administration Sodium Chloride 10 ml 06/13/20 20:23 06/13/20 20:38 Sodium Chloride 0.9% (Pf) 10 Ml Vial FS 10 ml Q12HR PRN Administration PROTONIX Tamsulosin HCl 0.4 mg 06/17/20 09:00 06/18/20 08:17 Tamsulosin Hcl 0.4 Mg Cap PO 0.4 mg DAILY LOLIS Administration - Exam Neck: negative: supple, symmetric, no JVD, no thyromegaly, no lymphadenopathy, no carotid bruit, JVD Heart: negative: RRR, no murmur, no gallops, no rubs, normal peripheral pulses, irregular, diminshed peripheral pulses, murmur present, II/IV, III/IV Respiratory: negative: CTAB, no wheezes, no rales, no ronchi, normal chest expansion, no tachypnea, normal percussion, rales, rhonchi, tachypneic, wheezes Hosp A/P - Plan Hosp A/P (1) Decompensated heart failure Code(s): I50.9 - HEART FAILURE, UNSPECIFIED Status: Acute (2) Hypertension Code(s): I10 - ESSENTIAL (PRIMARY) HYPERTENSION Status: Chronic Qualifiers: Hypertension type: essential hypertension Qualified Code(s): I10 - E ssential (primary) hypertension (3) Anemia Code(s): D64.9 - ANEMIA, UNSPECIFIED Status: Chronic Qualifiers: Anemia type: unspecified type Qualified Code(s): D64.9 - Anemia, unspecified (4) Chronic kidney disease (CKD) Code(s): N18.9 - CHRONIC KIDNEY DISEASE, UNSPECIFIED Status: Acute Qualifiers: Chronic kidney disease stage: stage 4 (severe) Qualified Code(s): N18.4 - Chronic kidney disease, stage 4 (severe) (5) CAD (coronary artery disease) Code(s): I25.10 - ATHSCL HEART DISEASE OF [place] CORONARY ARTERY W/O ANG PCTRS Status: Chronic (6) Tobacco abuse Code(s): Z72.0 - TOBACCO USE Status: Chronic (7) Type 2 diabetes mellitus Status: Chronic (8) Hypokalemia Code(s): E87.6 - HYPOKALEMIA Status: Acute - Plan Acute decompensated systolic HF - now on dobutamine, wean per Cardiology - on beta zaida, IV lasix, nitrate - appreciate Cards consult - echo shows EF severely depressed estimated at 15-20% - no VICENTE-I/ARB due to renal function Patient being weaned off dobutamine. Blood pressures significantly high. Anemia - stable with positive FOBT - appreciate GI consult -patient will have EGD colonoscopy as outpatient. - no indication for transfusion, transfuse if sx or less than 7 - will continue IV protonix for now - iron replacement CKD - renal function appears stable, c/w cardiorenal syndrome - Renal US shows cortical thinning, no obstruction - Appreciate nephrology consult - no indication for dialysis Hypokalemia - replace with 40 meq potassium x 2 doses today Mood d/o - continue home med dvt prophy - scd's gi prophy - covering with IV protonix for positive FOBT and anemia code status full 06/17 patient off dobutamine drip today. We will continue current medications. Possible discharge when okay with cardiology. Electrolytes replaced. Worsening renal function. Patient's weight was 150 currently 139. May need to hold off on diuretics. Nephrology on the case.
[2020-06-18] MEDS ORDERED: Furosemide 40 MG/4 ML VIAL SLOW IVP SCH (09:00)
--- NOTE | 2020-06-18 09:13 | PRG ---
DATE OF SERVICE: 06/18/2020 SUBJECTIVE: Ms. Bowers is a 60-year-old white female, initially admitted for CHF. We are following this patient for her acute kidney injury on top of her chronic renal failure. She has been diuresed in the last several days with improvement of her CHF. However, creatinine is noted to be progressively worsening with the most recent creatinine now noted at 3.09, yesterday this was 2.89. We have adjusted her Lasix downwards yesterday from 80 mg IV q.12 to 40 mg IV q.12. No other complaints today. Her leg edema is much improved. No chest pain or shortness of breath. OBJECTIVE: VITAL SIGNS: Blood pressure 168/76, heart rate 72, respiratory rate 18, temperature 98.5, O2 saturation 97%. GENERAL: The patient is awake, alert, comfortable, not in overt distress. SKIN: Adequate turgor. HEENT: She has slightly pale conjunctivae. Anicteric sclerae. NECK: No neck mass. No carotid bruits. No JVD. CHEST: No deformities. LUNGS: Clear breath sounds. No wheezing. No crackles. HEART: Normal sinus rhythm. No murmurs. No gallops. No rubs. ABDOMEN: Globular, soft, nontender. No masses. EXTREMITIES: Positive for edema. MEDICATIONS: Medications of June 18, 2020, reviewed. LABORATORY DATA: Laboratories of June 18, 2020; white count 6.3, hemoglobin 8. Sodium 137, potassium 2.8, chloride 91, carbon dioxide 30, BUN 37, creatinine 2.89, GFR 17 mL/minute, calcium 8.6. ASSESSMENT AND PLAN: 1. Chronic renal failure/acute kidney injury, worsening renal dysfunction. Decreased Lasix from 40 mg IV q.12 to 40 mg IV daily. No indication for any dialytic intervention. 2. Anemia, on iron supplementation. P.r.n. blood transfusion for hemoglobin less than 7. 3. Congestive heart failure, clinically much improved. Adjusting diuretics. Recheck CBC and basic met in a.m. Job ID: [id number]
[2020-06-18] MEDS ORDERED: Carvedilol 6.25 MG TAB PO SCH ×2 (09:15→17:00)
--- NOTE | 2020-06-18 17:31 | PDOC.HOSPP ---
- Subjective Encounter Date: 06/18/20 Encounter Time: 09:30 Subjective: Patient seen for follow-up for CHF exacerbation. Sleepy but arousable, denies chest pain. - Objective Vital Signs & Weight: Vital Signs (12 hours) Temp Pulse Pulse Pulse Resp BP BP 06/18/20 15:40 98.3 F 65 12 06/18/20 13:05 57 L 57 L 96/54 L 111/56 L 06/18/20 11:11 98.1 F 62 16 06/18/20 08:04 98.5 F 72 18 BP BP Pulse Ox 06/18/20 15:40 133/63 96 06/18/20 13:05 06/18/20 11:11 116/59 L 98 06/18/20 08:04 168/76 H 97 Weight Weight 132 lb 11.2 oz I&O: 06/17/20 06/18/20 06/19/20 06:59 06:59 06:59 Intake Total 1378 1934 Output Total 4405 9470 Balance -3024 -1351 Result Diagrams: 06/18/20 04:21 06/18/20 04:21 Additional Labs: Accuchecks 06/18/20 06/18/20 06/18/20 16:58 10:50 05:53 POC Glucose 212 H 181 H 155 H 06/17/20 20:31 POC Glucose 167 H I reviewed patient's labs and MAR Hospitalist ROS - Review of Systems Respiratory: reports: SOB with excertion. denies: cough, shortness of breath, pleuritic pain, wheezing Cardiovascular: denies: chest pain, palpitations, orthopnea, paroxysmal noc. dyspnea, edema, light headedness - Medication Medications: Active Medications Generic Name Dose Route Start Last Admin Trade Name Freq PRN Reason Stop Dose Admin Aspirin 81 mg 06/13/20 09:00 06/18/20 08:18 Aspirin Chewable 81 Mg Tab PO 81 mg DAILY LOLIS Administration Carvedilol 12.5 mg 06/18/20 17:00 06/18/20 17:20 Carvedilol 6.25 Mg Tab PO 12.5 mg BID-WM LOLIS Administration Ferrous Sulfate 325 mg 06/13/20 17:00 06/18/20 17:01 Ferrous Sulfate 325 Mg Tab PO 325 mg BID-WM LOLIS Administration Hydralazine HCl 100 mg 06/15/20 09:00 06/18/20 17:01 Hydralazine 25 Mg Tab PO 100 mg TID LOLIS Administration Isosorbide Dinitrate 40 mg 06/15/20 09:00 06/18/20 17:20 Isosorbide Dinitrate 20 Mg Tab PO 40 mg TID LOLIS Administration Melatonin 6 mg 06/13/20 23:51 06/16/20 20:54 Melatonin 3 Mg Tab PO 6 mg HSPRN PRN Administration Insomnia Pantoprazole Sodium 20 mg 06/18/20 09:00 06/18/20 08:18 Pantoprazole 40 Mg Tab PO 20 mg DAILY LOLIS Administration Rosuvastatin Calcium 10 mg 06/17/20 21:00 06/17/20 21:41 Rosuvastatin 10 Mg Tab PO 10 mg HS LOLIS Administration Sertraline HCl 100 mg 06/13/20 09:00 06/18/20 08:20 Sertraline Hcl 100 Mg Tab PO 100 mg DAILY LOLIS Administration Sodium Chloride 10 ml 06/13/20 20:23 06/13/20 20:38 Sodium Chloride 0.9% (Pf) 10 Ml Vial FS 10 ml Q12HR PRN Administration PROTONIX - Exam General Appearance: awake alert Eye: anicteric sclera ENT: normocephalic atraumatic Neck: supple Heart: RRR Respiratory: CTAB Gastrointestinal: soft, non-tender Skin: no rashes Psychiatric: normal affect, normal behavior Hosp A/P - Plan -Assessment (1) Decompensated heart failure Code(s): I50.9 - HEART FAILURE, UNSPECIFIED Status: Acute (2) Hypokalemia Code(s): E87.6 - HYPOKALEMIA Status: Acute (3) Hypertension Code(s): I10 - ESSENTIAL (PRIMARY) HYPERTENSION Status: Chronic Qualifiers: Hypertension type: essential hypertension Qualified Code(s): I10 - Essential (primary) hypertension (4) Anemia Code(s): D64.9 - ANEMIA, UNSPECIFIED Status: Chronic Qualifiers: Anemia type: unspecified type Qualified Code(s): D64.9 - Anemia, unspecified (5) Chronic kidney disease (CKD) Code(s): N18.9 - CHRONIC KIDNEY DISEASE, UNSPECIFIED Status: Chronic Qualifiers: Chronic kidney disease stage: stage 4 (severe) Qualified Code(s): N18.4 - Chronic kidney disease, stage 4 (severe) (6) CAD (coronary artery disease) Code(s): I25.10 - ATHSCL HEART DISEASE OF [place] CORONARY ARTERY W/O ANG PCTRS Status: Chronic (7) Tobacco abuse Code(s): Z72.0 - TOBACCO USE Status: Chronic (8) Type 2 diabetes mellitus Status: Chronic - Plan Patient was weaned off of dobutamine. Continue Coreg. Continue isosorbide dinitrate. Replace potassium. Nephrology following. Continue Accu-Cheks and insulin sliding scale.
[2020-06-18] MEDS: Rosuvastatin 10 MG TAB PO SCH (20:50)
[2020-06-19 04:39] LABS: #Eosinphils 0.1 thou/uL (0.0-0.7); #Lymphocytes 1.3 thou/uL (1.20-3.40); #Monocytes 0.7 thou/uL (0.11-0.59); #Neutrophils 4.8 thou/uL (1.40-6.50); %Basophils 0.4 % (0.0-1.0); %Eosinophils 1.3 % (0.0-10.0); %Lymphocytes 19.3 % (21.0-51.0); %Monocytes 9.9 % (0.0-10.0); %Neutrophils 69.1 % (42.0-75.0); Hemoglobin 7.9 g/dL (12.0-16.0); Mean Corpuscular HGB CONC 31.3 g/dL (32.0-36.0); Mean Corpuscular Volume 76.7 fL (78.0-98.0); Mean Platelet Volume 10.1 fL (7.4-10.4); Platelet Count 201 thou/uL (130-400); RBC Distribution Width 19.2 % (11.5-14.5); White Blood Cell (WBC) Count 6.9 thou/uL (4.8-10.8)
[2020-06-19 05:01] LABS: Anion Gap 17 mmol/L (10-20); BUN (Urea Nitrogen) 38 mg/dL (9.8-20.1); Calc. Creatinine Clearance 19 mL/min (70-130); Calcium 8.3 mg/dL (7.8-10.44); Carbon Dioxide 31 mmol/L (22-29); Chloride 92 mmol/L (98-107); Glucose 125 mg/dL (70-105); Sodium 137 mmol/L (136-145)
[2020-06-19] MEDS: Carvedilol 6.25 MG TAB PO SCH ×2 (08:06→15:58)
[2020-06-19] MEDS: Aspirin Chewable 81 MG TAB PO SCH (08:06)
[2020-06-19] MEDS: Ferrous Sulfate 325 MG TAB PO SCH ×2 (08:06→15:58)
[2020-06-19] MEDS: Isosorbide Dinitrate 20 MG TAB PO SCH ×2 (08:07→15:58)
[2020-06-19] MEDS: hydrALAZINE 25 MG TAB PO SCH ×2 (08:07→15:57)
[2020-06-19] MEDS ORDERED: Potassium Chloride 20 MEQ TAB PO SCH (08:30)
--- NOTE | 2020-06-19 08:38 | PRG ---
DATE OF SERVICE: 06/19/2020 SUBJECTIVE: Ms. Bowers is a 60-year-old white female, followed up for her acute kidney injury/chronic renal failure. She was admitted for CHF. She has been diuresed. Currently, IV diuretics have been placed on hold due to the worsening renal function. No complaints of chest pain or shortness of breath. OBJECTIVE: VITAL SIGNS: Blood pressure is 129/59, heart rate 53, respiratory rate 18, temperature 98.5, and O2 saturation 98%. GENERAL: The patient is awake, alert, sitting comfortable, not in distress. SKIN: Adequate turgor. HEENT: Slightly pale conjunctivae. Anicteric sclerae. NECK: No neck mass. No carotid bruits. No JVD. CHEST: No deformities. LUNGS: Clear breath sounds. No wheezing. No crackles. HEART: Normal sinus rhythm. No murmurs. No gallops. No rubs. ABDOMEN: Globular, soft, and nontender. No masses. EXTREMITIES: Positive for edema. MEDICATIONS: Medications of June 19, 2020, were reviewed. LABORATORY DATA: Laboratories of June 19, 2020; white count 6.9, hemoglobin 7.9, sodium 137, potassium 3, chloride 92, carbon dioxide 31, BUN 38, creatinine 3.03, glucose 125, and calcium 8.3. ASSESSMENT AND PLAN: 1. Acute kidney injury on top of her chronic renal failure, stabilizing renal function. Adjustment of diuretics has been made. The furosemide has been placed on hold temporarily. 2. Mild hypokalemia, p.r.n. potassium replacement. 3. Anemia, currently on iron supplementation. Continue to observe p.r.n. blood transfusion. 4. Congestive heart failure, clinically asymptomatic. Diuretics are on hold. Recheck CBC and basic met in a.m. Job ID: [id number]
[2020-06-19] MEDS ORDERED: Furosemide 40 MG/4 ML VIAL SLOW IVP SCH (09:00)
--- NOTE | 2020-06-19 12:35 | PDOC.DS.DS ---
Provider - Provider Date of Admission: 06/12/20 14:57 Date of Discharge: 06/19/20 Admitting Provider: Josy Pastor MD Consultations: Cardiology (Dr. Waller), Gastroentrology (Dr. Lang), Nephrology (Dr. Cyr) Primary Care Physician: Martina Resendiz NP Course - Hospital Course Hospital Course: Discharge diagnoses: 1. 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 Cardiomyopathy 3. Iron deficiency anemia 4. Acute on chronic stage IV renal failure Hospital course: Patient is a pleasant 60-year-old lady who was admitted to the hospital on June 12, 2020 for congestive heart failure exacerbation. Patient was seen by cardiology service. 2D echocardiogram showed left ventricle ejection fraction of 15 to 20%, moderately dilated left atrium, mildly enlarged right atrium size, moderately enlarged right ventricle cavity and moderately increased left ventr icular size. She also had impaired relaxation compatible with diastolic dysfunction. She was treated with diuretics. Her creatinine got worse, and she was switched to oral diuretics. She was seen by nephrology service. She is advised to follow-up with nephrology service as outpatient. She was also seen by gastroenterology service for iron deficiency anemia. They recommended EGD and colonoscopy as outpatient. She is being fitted with a LifeVest prior to discharge. Many thanks for allowing me to participate in your patient's care. Please feel free to contact me with any questions or concerns. Discharge destination: Home Total amount of time spent coordinating this discharge: 31 minutes Resuscitation Status: 06/12/20 10:57 Resuscitation Status Routine Resuscitation Status: FULL: Full Resuscitation Discussed with: LISET tsang - Labs Lab Results: 06/19/20 04:13 06/19/20 04:13 Abnormal Lab Results - Last 48 hrs 06/18/20 04:21: Sodium 133 L, Potassium 2.6 L*, Chloride 85 L, Carbon Dioxide 35 H, BUN 37 H, Creatinine 3.09 H 06/18/20 04:21: RBC 3.29 L, Hgb 8.0 L, Hct 25.0 L, MCV 75.9 L, MCH 24.3 L, RDW 19.2 H, Lymphocytes % 18.5 L, Monocytes % 10.2 H, Monocytes # 0.7 H 06/19/20 04:13: Potassium 3.0 L, Chloride 92 L, Carbon Dioxide 31 H, BUN 38 H, Creatinine 3.03 H 06/19/20 04:13: RBC 3.30 L, Hgb 7.9 L, Hct 25.3 L, MCV 76.7 L, MCH 24.0 L, MCHC 31.3 L, RDW 19.2 H, Lymphocytes % 19.3 L, Monocytes # 0.7 H Microbiology - Entire Visit 06/13/20 13:40 Stool Stool Occult Blood (OWEN) - Final - Physical Exam Vitals: Vital Signs (12 hours) Temp Pulse Resp BP BP Pulse Ox 06/19/20 08:00 98.6 F 58 L 16 148/65 H 98 06/19/20 04:00 98.5 F 53 L 18 129/59 L 98 06/19/20 00:56 98 Weight Weight 133 lb Physical Exam: The patient was seen and examined on the day of discharge. Patient denies chest pain or shortness of breath. Vital signs are stable. S1 and S2 are heard. Lungs are clear to auscultation bilaterally. Plan - Discharge Medications Prescriptions: Carvedilol [Coreg] 6.25 mg PO BID-WM #60 tab Rosuvastatin [Crestor] 10 mg PO HS #30 tab Aspirin [Ecotrin Low Strength] 81 mg PO DAILY #30 tab Ferrous Sulfate [Feosol] 325 mg PO BID-WM #60 tab hydrALAZINE HCl [Hydralazine HCl] 50 mg PO TID #90 tablet Isosorbide Dinitrate 20 mg PO TID #90 tablet Furosemide [Lasix] 40 mg PO DAILY-AC #30 tab Pantoprazole Sodium [Protonix] 20 mg PO DAILY #30 tablet.dr Home Medications: Medication Instructions Recorded Confirmed Type Sertraline HCl 100 mg PO DAILY 11/22/19 06/12/20 History Aspirin [Ecotrin Low Strength] 81 mg PO DAILY #30 tab 06/19/20 Rx Carvedilol [Coreg] 6.25 mg PO BID-WM #60 tab 06/19/20 Rx Ferrous Sulfate [Feosol] 325 mg PO BID-WM #60 tab 06/19/20 Rx Furosemide [Lasix] 40 mg PO DAILY-AC #30 tab 06/19/20 Rx Isosorbide Dinitrate 20 mg PO TID #90 tablet 06/19/20 Rx Pantoprazole Sodium [Protonix] 20 mg PO DAILY #30 tablet. 06/19/20 Rx Rosuvastatin [Crestor] 10 mg PO HS #30 tab 06/19/20 Rx hydrALAZINE HCl [Hydralazine HCl] 50 mg PO TID #90 tablet 06/19/20 Rx Allergies: cephalexin [From Keflex] Allergy (Verified 06/12/20 15:58) Severe itching - Discharge Instructions Activity:: Activity as Tolerated Nourishment:: Heart Healthy Diet, Low Sodium Diet, Renal Diet - Follow up Plan Referrals: Cardiac Rehab - [place] [Outside] - 7 Days (Your doctor has ordered outpatient cardiac rehab for you to begin within 1-2 weeks after you go home from the hospital. The location nearest to you is the [facility]. Should you have any trouble or need assistance, please call the cardiac rehab main line in [place] at [phone]. ) Martina Resendiz, [employer] [Primary Care Provider] - 06/22/20 10:00 am (Please remember to bring all medication bottles to clinic, along with all hospital discharge paperwork. ) Papo Lang MD [Active] - 2-3 Weeks Mikal Cyr MD [Active] - 10 Days Rylan Waller MD [Active] - 2-3 Weeks Disposition: HOME Quality - Care Measures CORE MEASURES:: HF - Stroke/TIA Did you prescribe antithrombotic therapy?: Yes Did you prescribe anticoagulant for A Fib/Flutter?: No Specify reason for no DC anticoagulant: Treatment not indicated Did you prescribe a statin medication?: Yes
[2020-06-19 14:19] VITALS: TEMP 98
[2020-06-19 17:12] VITALS: BP 130/62
[2020-06-20] MEDS ORDERED: Furosemide 40 MG TAB PO SCH (07:30)
--- NOTE | 2020-06-22 08:54 | PQF ---
CLINICAL DOCUMENTATION CLARIFICATION FORM: Dear : Jaison Crawley Date / Time:06/22/2020 08:54 Please exercise your independent, professional judgment in responding to the clarification form. Clinical indicators are provided on the bottom of this form for your review Please check appropriate box(es): AMI TYPE: [ ] Type 1 MO (NSTEMI) [ ] Type 2 MO (T2MI) secondary to: [ ] CHF exacerbation [ ] JHONNY [x ] No NSTEMI [ ] Other diagnosis, please specify [ ] Unable to determine Physician Signature: Date/Time: For continuity of documentation, please document condition throughout progress notes and discharge summary. Thank You. To be completed by CDI/Coding staff for physician review: Present Clinical Indicators - Signs / Symptoms / Labs Results and Location in Medical Record [x] NSTEMI ED Notes 06/12 [x] Presenting with SOB and chest pain ED Notes 06/12 [x] EKG: nonspecific T wave changes ED Notes 06/12 [x] Troponin: 06/12=0.078,0.059,0.052 Laboratory 06/12 Present Risk Factors Results and Location in Medical Record [x] CHF DS 06/19 [x] CMP DS 06/19 [x] JHONNY DS 06/19 [x] CKD DS 06/19 [x] DM HP 06/12 [x] HLD HP 06/12 [x] Smoker HP 06/12 [x] HTN HP 06/12 Present Treatments Results and Location in Medical Record [x] Aspirin 325mg Oral MAR 06/12 [x] Furosemide 40mg IV SEP 18 [x] Dobutamine 500mg IV SEP 18 CDS/Specimen Preparation Assistant Signature:Esteban Méndez Phone #: [phone] Date/Time:06/22/2020 This is a permanent part of the Medical Record [facility]
== END 2020-06-19 18:22 | disposition home or self-care (01) | DRG 291 ==
LOC: ERS 09:13 → 2SW 14:57 → 2NO 06-16 18:54
PROVIDERS: ADMIT Internal Medicine; ATTEND Internal Medicine
PROC: 3E02340 Introduction of Influenza Vaccine into Muscle, Percutaneous Approach (ICD-10-PCS; principal; 2020-06-13)
PROC: 3E033XZ Introduction of Vasopressor into Peripheral Vein, Percutaneous Approach (ICD-10-PCS; 2020-06-13)
DX: I13.0 Hypertensive heart and chronic kidney disease with heart failure and stage 1 through stage 4 chronic kidney disease, or unspecified chronic kidney disease (principal); I50.43 Acute on chronic combined systolic (congestive) and diastolic (congestive) heart failure; N17.9 Acute kidney failure, unspecified; Z23 Encounter for immunization; Z20.828 Contact with and (suspected) exposure to other viral communicable diseases; E11.22 Type 2 diabetes mellitus with diabetic chronic kidney disease; E78.5 Hyperlipidemia, unspecified; F17.210 Nicotine dependence, cigarettes, uncomplicated; K21.9 Gastro-esophageal reflux disease without esophagitis; E87.6 Hypokalemia; E78.00 Pure hypercholesterolemia, unspecified; I25.10 Atherosclerotic heart disease of native coronary artery without angina pectoris; D63.1 Anemia in chronic kidney disease; F39 Unspecified mood [affective] disorder; I25.5 Ischemic cardiomyopathy; D50.9 Iron deficiency anemia, unspecified; Z95.1 Presence of aortocoronary bypass graft; Z86.73 Personal history of transient ischemic attack (TIA), and cerebral infarction without residual deficits; Z90.710 Acquired absence of both cervix and uterus; Z79.82 Long term (current) use of aspirin; Z79.899 Other long term (current) drug therapy; Z91.14 Patient's other noncompliance with medication regimen; Z88.8 Allergy status to other drugs, medicaments and biological substances
CPT/HCPCS: 36415; 36416; 71045; 76770; 80048; 80053; 81003; 81015; 82274; 82553; 82607; 82728; 82746; 83540; 83550; 83880; 84443; 84484; 85025; 85379; 86850; 86900; 86901; 87635; 90471; 90662; 93005; 93010; 93306; 93798; 96374; 96375; C9113; G0008; J1250; J1940; J2916; J3480; J3490; J7050; U0002; U0003

== ENCOUNTER 2020-11-06 11:22 | Outpatient (CLI) | payer OTHER, SELFPAY ==
[2020-11-06 12:26] LABS: Mean Corpuscular HGB CONC 32.6 g/dL (32.0-36.0); Mean Corpuscular Hemoglobin 26.4 pg (27.0-33.0); Platelet Count 150 10x3/uL (150-450); RBC Distribution Width 18.1 % (11.5-14.5); Red Blood Cell (RBC) Count 3.79 10x6/uL (3.90-5.03); White Blood Cell (WBC) Count 7.1 10x3/uL (3.5-10.5)
[2020-11-06 12:51] LABS: Anion Gap 16 mmol/L (10-20); BUN (Urea Nitrogen) 50 mg/dL (9.8-20.1); Calc. Creatinine Clearance 0 mL/min (70-130); Calcium 8.6 mg/dL (7.8-10.44); Carbon Dioxide 22 mmol/L (22-29); Chloride 103 mmol/L (98-107); Glucose 182 mg/dL (70-105); Potassium 3.5 mmol/L (3.5-5.1); Sodium 137 mmol/L (136-145)
[2020-11-06 13:09] LABS: PTT 26.5 sec (22.0-33.0); Prothrombin Time 10.8 sec (9.5-12.1)
[2020-11-06 20:12] LABS: SARS-CoV-2 PCR by NAA Not Detected (NotDetected)
== END 2020-11-06 11:23 | disposition home or self-care (01) ==
LOC: LABBT 11:22
PROVIDERS: ATTEND Internal Medicine Cardiovascular Disease
DX: Z01.818 Encounter for other preprocedural examination (principal); I50.9 Heart failure, unspecified; Z79.01 Long term (current) use of anticoagulants; Z20.822 Contact with and (suspected) exposure to COVID-19
CPT/HCPCS: 80048; 85027; 85610; 85730; 87635; 93005; 93010; U0003; U0005

== ENCOUNTER 2020-11-11 11:00 | Day surgery (SDC) | payer OTHER ==
[2020-11-10 11:04] VITALS: BMI 22.2
[2020-11-11] MEDS ORDERED: Iopamidol 370 76% 50 ML VIAL FS ONE (14:45)
[2020-11-11] MEDS ORDERED: Gentamicin 80 MG/2 ML VIAL ONE (14:55)
[2020-11-11] MEDS ORDERED: Lidocaine 1% (PF) 30 ML VIAL ONE (14:55)
[2020-11-11] MEDS ORDERED: CEFAZOLIN 1 GM VIAL ONE (14:55)
[2020-11-11] MEDS ORDERED: Lidocaine 1% PF 5 ML VIAL ONE (15:05)
[2020-11-11] MEDS ORDERED: Midazolam HCl 2 mg/2 ml Vial ONE (15:07)
[2020-11-11] MEDS ORDERED: Propofol 1,000 MG/100 ML VIAL IV ONE (15:08)
[2020-11-11] MEDS ORDERED: Fentanyl 100 MCG/2 ML VIAL ONE (15:24)
[2020-11-11] MEDS ORDERED: hydrALAZINE 25 MG TAB ONE (17:17)
[2020-11-11] MEDS ORDERED: Carvedilol 6.25 MG TAB ONE (17:18)
== END 2020-11-11 19:50 | disposition home or self-care (01) ==
LOC: CCL 11:00
PROVIDERS: ATTEND Internal Medicine Cardiovascular Disease
PROC: 02H63KZ Insertion of Defibrillator Lead into Right Atrium, Percutaneous Approach (ICD-10-PCS; principal; 2020-11-11)
PROC: 0JH608Z Insertion of Defibrillator Generator into Chest Subcutaneous Tissue and Fascia, Open Approach (ICD-10-PCS; principal; 2020-11-11)
PROC: 02HK3KZ Insertion of Defibrillator Lead into Right Ventricle, Percutaneous Approach (ICD-10-PCS; principal; 2020-11-11)
DX: I12.9 Hypertensive chronic kidney disease with stage 1 through stage 4 chronic kidney disease, or unspecified chronic kidney disease (principal); E11.22 Type 2 diabetes mellitus with diabetic chronic kidney disease; N18.9 Chronic kidney disease, unspecified; I50.22 Chronic systolic (congestive) heart failure; I25.5 Ischemic cardiomyopathy; F17.200 Nicotine dependence, unspecified, uncomplicated; Z79.82 Long term (current) use of aspirin; Z79.899 Other long term (current) drug therapy; Z88.1 Allergy status to other antibiotic agents; Z95.1 Presence of aortocoronary bypass graft
CPT/HCPCS: 33249; 36005; 71045; 75820; 76942; 93005; 93641; C1721; C1777; C1898; J0690; J1580; J2001; J2250; J2704; J3010; Q9967

== ENCOUNTER 2021-04-26 09:58 | Emergency (ER) | payer OTHER ==
[2021-04-26 11:30] LABS: #Eosinphils 0.1 thou/uL (0.0-0.7); #Lymphocytes 1.1 thou/uL (1.20-3.40); #Monocytes 0.4 thou/uL (0.11-0.59); #Neutrophils 4.4 thou/uL (1.40-6.50); %Basophils 0.7 % (0.0-1.0); %Eosinophils 1.4 % (0.0-10.0); %Lymphocytes 18.4 % (21.0-51.0); %Monocytes 6.7 % (0.0-10.0); %Neutrophils 72.8 % (42.0-75.0); Hemoglobin 10.2 g/dL (12.0-16.0); Mean Corpuscular HGB CONC 34.1 g/dL (32.0-36.0); Mean Corpuscular Hemoglobin 29.3 pg (27.0-31.0); Mean Corpuscular Volume 85.8 fL (78.0-98.0); Mean Platelet Volume 8.2 fL (7.4-10.4); Platelet Count 154 thou/uL (130-400); RBC Distribution Width 17.4 % (11.5-14.5); Red Blood Cell (RBC) Count 3.47 mill/uL (4.20-5.40); White Blood Cell (WBC) Count 6.1 thou/uL (4.8-10.8)
[2021-04-26 11:53] LABS: ALT (SGPT) 7 U/L (8-55); AST (SGOT) 12 U/L (5-34); Alkaline Phosphatase 87 U/L (40-110); Anion Gap 14 mmol/L (10-20); BUN (Urea Nitrogen) 24 mg/dL (9.8-20.1); Bilirubin, Total 0.8 mg/dL (0.2-1.2); Calc. Creatinine Clearance 0 mL/min (70-130); Calcium 9.1 mg/dL (7.8-10.44); Carbon Dioxide 23 mmol/L (22-29); Chloride 107 mmol/L (98-107); Glucose 119 mg/dL (70-105); Potassium 3.8 mmol/L (3.5-5.1); Sodium 140 mmol/L (136-145)
[2021-04-26 12:10] LABS: CKMB 1.1 ng/mL (0-6.6)
[2021-04-26] MEDS ORDERED: cloNIDine 0.1 MG TAB ONE (12:37)
== END 2021-04-26 14:16 | disposition home or self-care (01) ==
LOC: ERS 09:58
DX: I13.0 Hypertensive heart and chronic kidney disease with heart failure and stage 1 through stage 4 chronic kidney disease, or unspecified chronic kidney disease (principal); E11.22 Type 2 diabetes mellitus with diabetic chronic kidney disease; N18.4 Chronic kidney disease, stage 4 (severe); I50.9 Heart failure, unspecified; J18.9 Pneumonia, unspecified organism; I43 Cardiomyopathy in diseases classified elsewhere; R79.89 Other specified abnormal findings of blood chemistry; E78.5 Hyperlipidemia, unspecified; E78.00 Pure hypercholesterolemia, unspecified; I25.10 Atherosclerotic heart disease of native coronary artery without angina pectoris; F17.210 Nicotine dependence, cigarettes, uncomplicated; Z79.82 Long term (current) use of aspirin; Z79.899 Other long term (current) drug therapy
CPT/HCPCS: 36415; 71046; 80053; 82553; 84484; 85025; 93005

== ENCOUNTER 2021-10-06 02:31 | Inpatient (IN) | payer OTHER ==
[2021-10-06] MEDS ORDERED: Ondansetron PF 4 MG/2 ML Vial IVP PRN (02:56)
[2021-10-06] MEDS ORDERED: Promethazine HCl 25 MG/ML VIAL IM PRN (02:56)
[2021-10-06] MEDS ORDERED: Morphine 4 MG/ML VIAL SLOW IVP PRN (03:05)
[2021-10-06 03:22] LABS: INR-International Normal Ratio 1.2
[2021-10-06 03:23] LABS: PTT 37.7 sec (22.9-36.1)
[2021-10-06 03:24] LABS: #Eosinphils 0.1 thou/uL (0.0-0.7); #Lymphocytes 1.1 thou/uL (1.20-3.40); #Monocytes 0.5 thou/uL (0.11-0.59); #Neutrophils 6.1 thou/uL (1.40-6.50); %Basophils 0.3 % (0.0-1.0); %Eosinophils 1.1 % (0.0-10.0); %Lymphocytes 14.4 % (21.0-51.0); %Monocytes 5.9 % (0.0-10.0); %Neutrophils 78.3 % (42.0-75.0); Hemoglobin 9.2 g/dL (12.0-16.0); Mean Corpuscular HGB CONC 35.3 g/dL (32.0-36.0); Mean Corpuscular Hemoglobin 31.1 pg (27.0-31.0); Mean Platelet Volume 7.4 fL (7.4-10.4); Platelet Count 154 thou/uL (130-400); RBC Distribution Width 15.5 % (11.5-14.5); Red Blood Cell (RBC) Count 2.96 mill/uL (4.20-5.40); White Blood Cell (WBC) Count 7.8 thou/uL (4.8-10.8)
[2021-10-06 03:29] LABS: Anion Gap 15 mmol/L (10-20); BUN (Urea Nitrogen) 42 mg/dL (9.8-20.1); Calc. Creatinine Clearance 0 mL/min (70-130); Carbon Dioxide 22 mmol/L (22-29); Chloride 105 mmol/L (98-107); Glucose 115 mg/dL (70-105); Magnesium 1.9 mg/dL (1.6-2.6); Phosphorus 4.1 mg/dL (2.3-4.7); Potassium 4.6 mmol/L (3.5-5.1); Sodium 137 mmol/L (136-145)
[2021-10-06] MEDS ORDERED: Sodium Chloride 0.9% 1,000 ML IV SCH (03:30)
[2021-10-06] MEDS ORDERED: hydrALAZINE 25 MG TAB PO SCH (03:45)
[2021-10-06] MEDS ORDERED: cloNIDine 0.1 MG TAB PO SCH (03:45)
[2021-10-06] MEDS ORDERED: hydrALAZINE 25 MG TAB ONE (04:32)
[2021-10-06] MEDS ORDERED: cloNIDine 0.1 MG TAB ONE (04:32)
[2021-10-06 05:14] LABS: SARS-CoV-2 NAA Rapid Test Not Detected (NotDetected)
[2021-10-06] MEDS ORDERED: hydrALAZINE 20 MG/ML VIAL ONE (06:44)
[2021-10-06] MEDS: hydrALAZINE 20 MG/ML VIAL SLOW IVP PRN (06:45)
[2021-10-06] MEDS ORDERED: Dextrose 50% Abboject 50 ML SYRINGE SLOW IVP PRN (06:59)
[2021-10-06] MEDS ORDERED: Dextrose 5% in Water 1,000 ML IV PRN (06:59)
[2021-10-06] MEDS ORDERED: Clindamycin/D5W 900 MG in Premix Bag 1 BAG IVPB SCH (07:45)
[2021-10-06] MEDS ORDERED: Carvedilol 25 MG TAB PO SCH (08:00)
[2021-10-06] MEDS ORDERED: traMADol HCl 50 MG TAB ONE (10:37)
[2021-10-06] MEDS: Acetaminophen 500 MG TAB PO SCH ×4 (10:47→22:37)
[2021-10-06] MEDS: Ascorbic Acid 500 mg Chewable Tablet PO SCH (10:48)
[2021-10-06] MEDS: cloNIDine 0.1 MG TAB PO SCH ×3 (10:49→20:27)
[2021-10-06] MEDS: Ferrous Sulfate 325 MG TAB PO SCH (10:49)
[2021-10-06] MEDS: Famotidine 20 MG TAB PO SCH (10:50)
[2021-10-06] MEDS: Isosorbide Dinitrate 20 MG TAB PO SCH ×3 (10:50→20:27)
[2021-10-06] MEDS: hydrALAZINE 25 MG TAB PO SCH ×3 (10:50→20:28)
[2021-10-06] MEDS: Polyethylene Glycol 3350 17 GM Packet PO SCH (10:51)
[2021-10-06] MEDS: traMADol HCl 50 MG TAB PO SCH ×2 (10:51→20:28)
[2021-10-06] MEDS: Multivitamin W/ Minerals 1 TAB PO SCH (10:51)
[2021-10-06] MEDS: Senokot S 8.6-50 MG TAB PO SCH ×2 (10:51→20:46)
[2021-10-06] MEDS: Carvedilol 25 MG TAB PO SCH ×2 (11:15→17:00)
[2021-10-06] MEDS ORDERED: ceFAZolin 2 GM/DEX 5% 100 ML BAG ONE (14:38)
[2021-10-06] MEDS ORDERED: Lidocaine 1% MPF 2 ML VIAL ONE (14:40)
[2021-10-06] MEDS ORDERED: Clindamycin/D5W 900 mg/50 ml Premix Bag ONE (14:43)
[2021-10-06] MEDS ORDERED: Fentanyl 100 MCG/2 ML VIAL ONE ×2 (14:47→17:06)
[2021-10-06] MEDS ORDERED: Albumin 25% 0 ML ONE (14:48)
[2021-10-06] MEDS ORDERED: Lidocaine 2% Jelly 5 ML TUBE ONE (14:48)
[2021-10-06] MEDS ORDERED: Phenylephrine 10 MG/ML VIAL ONE (14:48)
[2021-10-06] MEDS ORDERED: Norepinephrine 4 MG/4 ML VIAL ONE (14:48)
[2021-10-06] MEDS ORDERED: Rocuronium Bromide 10 MG/ML (10ML VIAL) ONE (15:19)
[2021-10-06] MEDS ORDERED: Ondansetron PF 4 MG/2 ML Vial ONE (15:19)
[2021-10-06] MEDS ORDERED: PROPOFOL 200 MG/20 ML VIAL ONE (15:19)
[2021-10-06] MEDS ORDERED: Lidocaine 1% PF 5 ML VIAL ONE (15:19)
[2021-10-06] MEDS ORDERED: SUGAMMADEX SODIUM 200 MG/2 ML VIAL ONE (16:05)
[2021-10-06] MEDS ORDERED: PACU-Morphine 4MG/ML VIAL SLOW IVP PRN (16:49)
[2021-10-06] MEDS ORDERED: Promethazine HCl 25 MG/ML VIAL IVPB PRN (16:49)
[2021-10-06] MEDS: Rosuvastatin 10 MG TAB PO SCH (20:26)
[2021-10-06 21:15] LABS: Bacteria/HPF None Seen HPF (None Seen); Bilirubin Negative (Negative); Blood, Urine Negative (Negative); Clarity Clear (Clear); Glucose, Urine (Dipstick) Normal (Negative); Ketone, Urine Negative (Negative); Leukocyte Negative Leu/uL (Negative); Nitrite Negative (Negative); Protein, Urine (Dipstick) 100 mg/dL (Neg-Trace); RBC/HPF 0-3 HPF (0-3); Specific Gravity, Urine 1.021 (1.002-1.036); Squamous Epithelial None Seen HPF (0-3); Urobilinogen Normal mg/dL (Less than 2); WBC/HPF 0-3 HPF (0-3); pH, Urine 5.5 (5.0-9.0)
[2021-10-06 21:17] LABS: Urine Culture Reflex No No
[2021-10-06] MEDS: Clindamycin/D5W 900 MG in Premix Bag 1 BAG IVPB SCH (22:37)
[2021-10-07] MEDS: Acetaminophen 500 MG TAB PO SCH ×3 (05:45→17:05)
[2021-10-07] MEDS: Clindamycin/D5W 900 MG in Premix Bag 1 BAG IVPB SCH (05:46)
[2021-10-07 05:47] LABS: #Basophils 0.1 thou/uL (0.0-0.2); #Eosinphils 0.1 thou/uL (0.0-0.7); #Lymphocytes 0.8 thou/uL (1.20-3.40); #Monocytes 0.5 thou/uL (0.11-0.59); #Neutrophils 5.7 thou/uL (1.40-6.50); %Basophils 0.8 % (0.0-1.0); %Eosinophils 1.5 % (0.0-10.0); %Lymphocytes 11.7 % (21.0-51.0); %Monocytes 7.5 % (0.0-10.0); %Neutrophils 78.6 % (42.0-75.0); Hemoglobin 9.3 g/dL (12.0-16.0); Mean Corpuscular HGB CONC 35.6 g/dL (32.0-36.0); Mean Corpuscular Hemoglobin 32.1 pg (27.0-31.0); Mean Corpuscular Volume 90.3 fL (78.0-98.0); Mean Platelet Volume 7.8 fL (7.4-10.4); Platelet Count 130 thou/uL (130-400); RBC Distribution Width 15.5 % (11.5-14.5); White Blood Cell (WBC) Count 7.2 thou/uL (4.8-10.8)
[2021-10-07 06:03] LABS: Anion Gap 15 mmol/L (10-20); BUN (Urea Nitrogen) 41 mg/dL (9.8-20.1); Calc. Creatinine Clearance 20 mL/min (70-130); Calcium 8.3 mg/dL (7.8-10.44); Carbon Dioxide 18 mmol/L (22-29); Chloride 109 mmol/L (98-107); Glucose 109 mg/dL (70-105); Magnesium 1.8 mg/dL (1.6-2.6); Phosphorus 4.7 mg/dL (2.3-4.7); Potassium 4.6 mmol/L (3.5-5.1); Sodium 137 mmol/L (136-145)
[2021-10-07] MEDS: HumaLOG 300 UNITS/3 ML VIAL SC PRN ×2 (06:09→19:09)
[2021-10-07] MEDS: Sodium Chloride 0.45% 1,000 ML IV SCH ×2 (09:27→21:49)
[2021-10-07] MEDS: Polyethylene Glycol 3350 17 GM Packet PO SCH (09:28)
[2021-10-07] MEDS: traMADol HCl 50 MG TAB PO SCH ×2 (09:28→21:39)
[2021-10-07] MEDS: Senokot S 8.6-50 MG TAB PO SCH ×2 (09:31→21:39)
[2021-10-07] MEDS: Ascorbic Acid 500 mg Chewable Tablet PO SCH (09:31)
[2021-10-07] MEDS: Famotidine 20 MG TAB PO SCH (09:31)
[2021-10-07] MEDS: Calcitriol 0.25 MCG CAP PO SCH (09:31)
[2021-10-07] MEDS: Multivitamin W/ Minerals 1 TAB PO SCH (09:31)
[2021-10-07] MEDS: Sodium Bicarbonate Tab 325 MG TAB PO SCH ×3 (09:31→21:39)
[2021-10-07] MEDS: Ferrous Sulfate 325 MG TAB PO SCH (09:32)
[2021-10-07] MEDS: Isosorbide Dinitrate 20 MG TAB PO SCH ×3 (09:32→21:40)
[2021-10-07] MEDS: Carvedilol 25 MG TAB PO SCH ×2 (09:32→17:07)
[2021-10-07] MEDS: hydrALAZINE 25 MG TAB PO SCH ×3 (09:32→21:39)
[2021-10-07] MEDS: cloNIDine 0.1 MG TAB PO SCH ×3 (09:33→21:40)
[2021-10-07] MEDS: traMADol HCl 50 MG TAB PO PRN (12:17)
[2021-10-07] MEDS: Cyclobenzaprine 10 MG TAB PO PRN (17:07)
[2021-10-07] MEDS: Heparin 5,000 UNITS/ML VIAL SC SCH ×2 (17:08→21:44)
[2021-10-07] MEDS: Rosuvastatin 10 MG TAB PO SCH (21:40)
[2021-10-08] MEDS: Acetaminophen 500 MG TAB PO SCH ×5 (03:09→23:59)
[2021-10-08 05:32] LABS: #Basophils 0.1 thou/uL (0.0-0.2); #Eosinphils 0.1 thou/uL (0.0-0.7); #Monocytes 0.7 thou/uL (0.11-0.59); #Neutrophils 6.4 thou/uL (1.40-6.50); %Basophils 0.8 % (0.0-1.0); %Lymphocytes 11.9 % (21.0-51.0); %Neutrophils 78.3 % (42.0-75.0); Hemoglobin 9.4 g/dL (12.0-16.0); Mean Corpuscular HGB CONC 33.3 g/dL (32.0-36.0); Mean Corpuscular Hemoglobin 29.7 pg (27.0-31.0); Mean Corpuscular Volume 89.4 fL (78.0-98.0); Mean Platelet Volume 8.1 fL (7.4-10.4); Platelet Count 129 thou/uL (130-400); RBC Distribution Width 15.8 % (11.5-14.5); Red Blood Cell (RBC) Count 3.16 mill/uL (4.20-5.40); White Blood Cell (WBC) Count 8.1 thou/uL (4.8-10.8)
[2021-10-08 05:52] LABS: Anion Gap 14 mmol/L (10-20); BUN (Urea Nitrogen) 37 mg/dL (9.8-20.1); Calc. Creatinine Clearance 20 mL/min (70-130); Calcium 8.6 mg/dL (7.8-10.44); Carbon Dioxide 17 mmol/L (22-29); Chloride 108 mmol/L (98-107); Glucose 97 mg/dL (70-105); Potassium 4.2 mmol/L (3.5-5.1); Sodium 135 mmol/L (136-145)
[2021-10-08] MEDS: Ascorbic Acid 500 mg Chewable Tablet PO SCH (08:57)
[2021-10-08] MEDS: Carvedilol 25 MG TAB PO SCH ×2 (08:58→17:30)
[2021-10-08] MEDS: Ferrous Sulfate 325 MG TAB PO SCH (08:59)
[2021-10-08] MEDS: Calcitriol 0.25 MCG CAP PO SCH (08:59)
[2021-10-08] MEDS: Heparin 5,000 UNITS/ML VIAL SC SCH ×3 (09:00→20:24)
[2021-10-08] MEDS: cloNIDine 0.1 MG TAB PO SCH ×3 (09:00→20:23)
[2021-10-08] MEDS: hydrALAZINE 25 MG TAB PO SCH ×2 (09:04→14:52)
[2021-10-08] MEDS: Multivitamin W/ Minerals 1 TAB PO SCH (09:05)
[2021-10-08] MEDS: Isosorbide Dinitrate 20 MG TAB PO SCH ×3 (09:05→20:23)
[2021-10-08] MEDS: Polyethylene Glycol 3350 17 GM Packet PO SCH (09:07)
[2021-10-08] MEDS: Senokot S 8.6-50 MG TAB PO SCH ×2 (09:07→20:34)
[2021-10-08] MEDS: traMADol HCl 50 MG TAB PO SCH ×2 (09:08→20:22)
[2021-10-08] MEDS: Sodium Bicarbonate Tab 325 MG TAB PO SCH ×3 (09:08→20:21)
[2021-10-08] MEDS: Sodium Chloride 0.45% 1,000 ML IV SCH (10:48)
[2021-10-08] MEDS: hydrALAZINE 20 MG/ML VIAL SLOW IVP PRN ×2 (11:55→16:01)
[2021-10-08] MEDS: Rosuvastatin 10 MG TAB PO SCH (20:22)
[2021-10-08] MEDS ORDERED: hydrALAZINE 25 MG TAB PO SCH (21:00)
[2021-10-09] MEDS: hydrALAZINE 20 MG/ML VIAL SLOW IVP PRN ×3 (00:18→23:40)
[2021-10-09] MEDS: Melatonin 3 MG TAB PO PRN ×2 (00:18→21:12)
[2021-10-09] MEDS: Sodium Chloride 0.45% 1,000 ML IV SCH (00:19)
[2021-10-09] MEDS: Acetaminophen 500 MG TAB PO SCH ×4 (05:11→23:44)
[2021-10-09 05:26] LABS: #Eosinphils 0.1 thou/uL (0.0-0.7); #Monocytes 0.5 thou/uL (0.11-0.59); #Neutrophils 4.7 thou/uL (1.40-6.50); %Basophils 0.7 % (0.0-1.0); %Eosinophils 1.6 % (0.0-10.0); %Lymphocytes 15.1 % (21.0-51.0); %Monocytes 8.4 % (0.0-10.0); %Neutrophils 74.2 % (42.0-75.0); Hemoglobin 8.2 g/dL (12.0-16.0); Mean Corpuscular HGB CONC 33.5 g/dL (32.0-36.0); Mean Corpuscular Hemoglobin 30.1 pg (27.0-31.0); Mean Corpuscular Volume 89.9 fL (78.0-98.0); Mean Platelet Volume 7.2 fL (7.4-10.4); Platelet Count 130 thou/uL (130-400); RBC Distribution Width 15.7 % (11.5-14.5); Red Blood Cell (RBC) Count 2.72 mill/uL (4.20-5.40); White Blood Cell (WBC) Count 6.4 thou/uL (4.8-10.8)
[2021-10-09 06:13] LABS: Anion Gap 13 mmol/L (10-20); BUN (Urea Nitrogen) 33 mg/dL (9.8-20.1); Calc. Creatinine Clearance 20 mL/min (70-130); Calcium 8.6 mg/dL (7.8-10.44); Carbon Dioxide 19 mmol/L (22-29); Chloride 107 mmol/L (98-107); Glucose 89 mg/dL (70-105); Magnesium 1.9 mg/dL (1.6-2.6); Phosphorus 3.6 mg/dL (2.3-4.7); Potassium 3.8 mmol/L (3.5-5.1); Sodium 135 mmol/L (136-145)
[2021-10-09] MEDS: hydrALAZINE 25 MG TAB PO SCH ×3 (06:26→19:35)
[2021-10-09] MEDS: Ascorbic Acid 500 mg Chewable Tablet PO SCH (08:41)
[2021-10-09] MEDS: Carvedilol 25 MG TAB PO SCH ×3 (08:41→17:43)
[2021-10-09] MEDS: traMADol HCl 50 MG TAB PO SCH ×2 (08:42→19:37)
[2021-10-09] MEDS: cloNIDine 0.1 MG TAB PO SCH ×3 (08:43→19:36)
[2021-10-09] MEDS: Heparin 5,000 UNITS/ML VIAL SC SCH ×3 (08:43→19:40)
[2021-10-09] MEDS: Isosorbide Dinitrate 20 MG TAB PO SCH ×3 (08:44→19:36)
[2021-10-09] MEDS: Sodium Bicarbonate Tab 325 MG TAB PO SCH ×3 (08:44→19:35)
[2021-10-09] MEDS: Ferrous Sulfate 325 MG TAB PO SCH (08:44)
[2021-10-09] MEDS: Calcitriol 0.25 MCG CAP PO SCH (08:45)
[2021-10-09] MEDS: Multivitamin W/ Minerals 1 TAB PO SCH (08:45)
[2021-10-09] MEDS: Senokot S 8.6-50 MG TAB PO SCH ×2 (08:46→19:33)
[2021-10-09] MEDS: Polyethylene Glycol 3350 17 GM Packet PO SCH (08:46)
[2021-10-09] MEDS ORDERED: EPOETIN ALFA-EPBX (ESRD) 40,000 UNIT/ML VIAL SC SCH (12:00)
[2021-10-09] MEDS: Rosuvastatin 10 MG TAB PO SCH (19:35)
[2021-10-09] MEDS: HumaLOG 300 UNITS/3 ML VIAL SC PRN (21:10)
[2021-10-09] MEDS: Cyclobenzaprine 10 MG TAB PO PRN (23:43)
[2021-10-10] MEDS: hydrALAZINE 20 MG/ML VIAL SLOW IVP PRN (03:38)
[2021-10-10 05:59] LABS: #Eosinphils 0.1 thou/uL (0.0-0.7); #Lymphocytes 0.9 thou/uL (1.20-3.40); #Monocytes 0.5 thou/uL (0.11-0.59); #Neutrophils 5.1 thou/uL (1.40-6.50); %Basophils 0.4 % (0.0-1.0); %Eosinophils 2.2 % (0.0-10.0); %Lymphocytes 13.5 % (21.0-51.0); %Monocytes 7.8 % (0.0-10.0); %Neutrophils 76.1 % (42.0-75.0); Hemoglobin 9.2 g/dL (12.0-16.0); Mean Corpuscular HGB CONC 34.5 g/dL (32.0-36.0); Mean Corpuscular Hemoglobin 31.1 pg (27.0-31.0); Mean Corpuscular Volume 90.3 fL (78.0-98.0); Mean Platelet Volume 7.5 fL (7.4-10.4); Platelet Count 144 thou/uL (130-400); RBC Distribution Width 15.8 % (11.5-14.5); Red Blood Cell (RBC) Count 2.96 mill/uL (4.20-5.40); White Blood Cell (WBC) Count 6.7 thou/uL (4.8-10.8)
[2021-10-10] MEDS ORDERED: hydrALAZINE 20 MG/ML VIAL SLOW IVP SCH (06:00)
[2021-10-10] MEDS: Acetaminophen 500 MG TAB PO SCH ×3 (06:02→17:34)
[2021-10-10] MEDS: HumaLOG 300 UNITS/3 ML VIAL SC PRN (06:15)
[2021-10-10 06:20] LABS: Anion Gap 14 mmol/L (10-20); BUN (Urea Nitrogen) 32 mg/dL (9.8-20.1); Calc. Creatinine Clearance 21 mL/min (70-130); Calcium 8.5 mg/dL (7.8-10.44); Carbon Dioxide 18 mmol/L (22-29); Chloride 109 mmol/L (98-107); Glucose 125 mg/dL (70-105); Magnesium 1.9 mg/dL (1.6-2.6); Phosphorus 3.6 mg/dL (2.3-4.7); Potassium 3.8 mmol/L (3.5-5.1); Sodium 137 mmol/L (136-145)
[2021-10-10] MEDS: hydrALAZINE 25 MG TAB PO SCH ×3 (06:45→20:16)
[2021-10-10] MEDS: Ferrous Sulfate 325 MG TAB PO SCH (09:44)
[2021-10-10] MEDS: Ascorbic Acid 500 mg Chewable Tablet PO SCH (09:44)
[2021-10-10] MEDS: Carvedilol 25 MG TAB PO SCH ×2 (09:45→17:33)
[2021-10-10] MEDS: traMADol HCl 50 MG TAB PO SCH ×2 (09:45→20:18)
[2021-10-10] MEDS: Calcitriol 0.25 MCG CAP PO SCH (09:46)
[2021-10-10] MEDS: Sodium Bicarbonate Tab 325 MG TAB PO SCH ×3 (09:46→20:16)
[2021-10-10] MEDS: cloNIDine 0.1 MG TAB PO SCH ×3 (09:46→20:17)
[2021-10-10] MEDS: Isosorbide Dinitrate 20 MG TAB PO SCH ×3 (09:46→20:18)
[2021-10-10] MEDS: Multivitamin W/ Minerals 1 TAB PO SCH (09:47)
[2021-10-10] MEDS: Heparin 5,000 UNITS/ML VIAL SC SCH ×3 (09:47→20:17)
[2021-10-10] MEDS: Polyethylene Glycol 3350 17 GM Packet PO SCH (09:48)
[2021-10-10] MEDS: Senokot S 8.6-50 MG TAB PO SCH ×2 (09:49→20:16)
[2021-10-10] MEDS ORDERED: Lorazepam 0.5 MG TAB PO SCH (10:30)
[2021-10-10] MEDS: Nicotine 21 MG PATCH TOP SCH (10:59)
[2021-10-10] MEDS: Rosuvastatin 10 MG TAB PO SCH (20:16)
[2021-10-11] MEDS: Acetaminophen 500 MG TAB PO SCH ×3 (00:23→12:50)
[2021-10-11] MEDS: hydrALAZINE 20 MG/ML VIAL SLOW IVP PRN (03:31)
[2021-10-11 04:12] VITALS: BMI 21.8
[2021-10-11 06:20] LABS: Anion Gap 13 mmol/L (10-20); BUN (Urea Nitrogen) 28 mg/dL (9.8-20.1); Calc. Creatinine Clearance 22 mL/min (70-130); Calcium 8.6 mg/dL (7.8-10.44); Carbon Dioxide 20 mmol/L (22-29); Chloride 108 mmol/L (98-107); Glucose 123 mg/dL (70-105); Potassium 3.7 mmol/L (3.5-5.1); Sodium 137 mmol/L (136-145)
[2021-10-11] MEDS: Ferrous Sulfate 325 MG TAB PO SCH (07:40)
[2021-10-11] MEDS: Carvedilol 25 MG TAB PO SCH (07:40)
[2021-10-11] MEDS: Ascorbic Acid 500 mg Chewable Tablet PO SCH (07:40)
[2021-10-11 07:46] VITALS: TEMP 97.8
[2021-10-11] MEDS ORDERED: Carvedilol 25 MG TAB PO SCH ×2 (07:49→08:00)
[2021-10-11] MEDS ORDERED: NIFEdipine XL 30 MG TAB PO SCH (09:00)
[2021-10-11] MEDS: Heparin 5,000 UNITS/ML VIAL SC SCH ×2 (09:27→15:31)
[2021-10-11] MEDS: Calcitriol 0.25 MCG CAP PO SCH (09:27)
[2021-10-11] MEDS: Isosorbide Dinitrate 20 MG TAB PO SCH ×2 (09:27→14:53)
[2021-10-11] MEDS: traMADol HCl 50 MG TAB PO SCH (09:27)
[2021-10-11] MEDS: cloNIDine 0.1 MG TAB PO SCH ×2 (09:28→14:53)
[2021-10-11] MEDS: Multivitamin W/ Minerals 1 TAB PO SCH (09:29)
[2021-10-11] MEDS: Sodium Bicarbonate Tab 325 MG TAB PO SCH ×2 (09:29→14:53)
[2021-10-11] MEDS: Senokot S 8.6-50 MG TAB PO SCH (09:30)
[2021-10-11] MEDS: Polyethylene Glycol 3350 17 GM Packet PO SCH (09:30)
[2021-10-11] MEDS: hydrALAZINE 25 MG TAB PO SCH ×2 (10:49→15:31)
[2021-10-11 12:14] VITALS: BP 161/73
[2021-10-11] MEDS: Nicotine 21 MG PATCH TOP SCH (12:50)
[2021-10-11] MEDS: traMADol HCl 50 MG TAB PO PRN (12:56)
[2021-10-16] MEDS ORDERED: EPOETIN ALFA-EPBX (ESRD) 40,000 UNIT/ML VIAL SC SCH (09:00)
== END 2021-10-11 15:48 | disposition home or self-care (01) | DRG 481 ==
LOC: ERS 02:31 → ERHOLD 02:59 → SURG A 13:54 → SJJU 17:47
PROVIDERS: ADMIT Surgery; ATTEND Surgery
PROC: 0QS604Z Reposition Right Upper Femur with Internal Fixation Device, Open Approach (ICD-10-PCS; principal; 2021-10-06)
DX: S72.141A Displaced intertrochanteric fracture of right femur, initial encounter for closed fracture (principal); N17.9 Acute kidney failure, unspecified; E87.2 Acidosis; F17.213 Nicotine dependence, cigarettes, with withdrawal; N25.81 Secondary hyperparathyroidism of renal origin; Z20.822 Contact with and (suspected) exposure to COVID-19; I25.5 Ischemic cardiomyopathy; N18.30 Chronic kidney disease, stage 3 unspecified; E11.22 Type 2 diabetes mellitus with diabetic chronic kidney disease; I50.9 Heart failure, unspecified; D63.1 Anemia in chronic kidney disease; I11.0 Hypertensive heart disease with heart failure; K21.9 Gastro-esophageal reflux disease without esophagitis; E78.5 Hyperlipidemia, unspecified; I25.10 Atherosclerotic heart disease of native coronary artery without angina pectoris; F41.9 Anxiety disorder, unspecified; W01.0XXA Fall on same level from slipping, tripping and stumbling without subsequent striking against object, initial encounter; Z95.0 Presence of cardiac pacemaker; Z95.1 Presence of aortocoronary bypass graft; Z90.710 Acquired absence of both cervix and uterus; Z79.899 Other long term (current) drug therapy; Z88.1 Allergy status to other antibiotic agents; Z86.73 Personal history of transient ischemic attack (TIA), and cerebral infarction without residual deficits
CPT/HCPCS: 36415; 36416; 36430; 71045; 76000; 80048; 81001; 83735; 83880; 84100; 85025; 86850; 86900; 86901; 93005; 93010; C1713; J0360; J1642; J1644; J1815; J2370; J2405; J2704; J3010; J3490; J7050; P9047; Q5105; U0002

== ENCOUNTER 2022-01-31 17:17 | Emergency (ER) | payer OTHER ==
[2022-01-31 18:19] LABS: #Eosinphils 0.1 thou/uL (0.0-0.7); #Monocytes 0.6 thou/uL (0.11-0.59); #Neutrophils 4.2 thou/uL (1.40-6.50); %Basophils 0.6 % (0.0-1.0); %Eosinophils 1.3 % (0.0-10.0); %Lymphocytes 16.4 % (21.0-51.0); %Monocytes 10.4 % (0.0-10.0); %Neutrophils 71.4 % (42.0-75.0); Hemoglobin 7.9 g/dL (12.0-16.0); Mean Corpuscular HGB CONC 30.9 g/dL (32.0-36.0); Mean Corpuscular Hemoglobin 26.7 pg (27.0-31.0); Mean Corpuscular Volume 86.4 fL (78.0-98.0); Mean Platelet Volume 8.6 fL (7.4-10.4); Platelet Count 165 thou/uL (130-400); RBC Distribution Width 17.4 % (11.5-14.5); Red Blood Cell (RBC) Count 2.95 mill/uL (4.20-5.40); White Blood Cell (WBC) Count 5.9 thou/uL (4.8-10.8)
[2022-01-31 18:39] LABS: ALT (SGPT) 8 U/L (8-55); AST (SGOT) 14 U/L (5-34); Albumin 3.7 g/dL (3.5-5.0); Alkaline Phosphatase 104 U/L (40-110); Anion Gap 11 mmol/L (10-20); BUN (Urea Nitrogen) 33 mg/dL (9.8-20.1); Bilirubin, Total 0.8 mg/dL (0.2-1.2); Calc. Creatinine Clearance 0 mL/min (70-130); Calcium 8.8 mg/dL (7.8-10.44); Carbon Dioxide 26 mmol/L (22-29); Chloride 107 mmol/L (98-107); Estimated GFR 16; Globulin 2.8 g/dL (2.4-3.5); Glucose 122 mg/dL (70-105); Potassium 4.9 mmol/L (3.5-5.1); Protein, Total 6.5 g/dL (6.0-8.3); Sodium 139 mmol/L (136-145)
[2022-01-31 19:00] LABS: CKMB 1.1 ng/mL (0-6.6)
[2022-01-31] MEDS ORDERED: cloNIDine 0.1 MG TAB ONE (21:20)
[2022-01-31] MEDS ORDERED: Bumetanide 1 MG TAB PO SCH (21:30)
== END 2022-01-31 22:02 | disposition home or self-care (01) ==
LOC: ERS 17:17
DX: I13.0 Hypertensive heart and chronic kidney disease with heart failure and stage 1 through stage 4 chronic kidney disease, or unspecified chronic kidney disease (principal); N18.4 Chronic kidney disease, stage 4 (severe); I50.9 Heart failure, unspecified; E87.70 Fluid overload, unspecified; E11.22 Type 2 diabetes mellitus with diabetic chronic kidney disease; E78.00 Pure hypercholesterolemia, unspecified; I25.10 Atherosclerotic heart disease of native coronary artery without angina pectoris; F17.210 Nicotine dependence, cigarettes, uncomplicated
CPT/HCPCS: 36415; 71045; 80053; 82553; 83880; 84484; 85025; 93005

== ENCOUNTER 2022-04-12 15:25 | Inpatient (IN) | payer MEDICARE, MEDICAID ==
[~2022-04-12 15:25] MED LIST: Heparin 1,000 UNITS/ML VIAL ONE
[2022-04-12 18:17] LABS: #Basophils 0.1 thou/uL (0.0-0.2); #Eosinphils 0.1 thou/uL (0.0-0.7); #Lymphocytes 1.1 thou/uL (1.20-3.40); #Monocytes 0.5 thou/uL (0.11-0.59); #Neutrophils 4.2 thou/uL (1.40-6.50); %Basophils 1.3 % (0.0-1.0); %Eosinophils 2.3 % (0.0-10.0); %Neutrophils 69.4 % (42.0-75.0); Hemoglobin 7.1 g/dL (12.0-16.0); Mean Corpuscular HGB CONC 33.2 g/dL (32.0-36.0); Mean Corpuscular Hemoglobin 28.2 pg (27.0-31.0); Mean Corpuscular Volume 84.9 fL (78.0-98.0); Mean Platelet Volume 8.8 fL (7.4-10.4); Platelet Count 134 thou/uL (130-400); RBC Distribution Width 20.9 % (11.5-14.5); Red Blood Cell (RBC) Count 2.52 mill/uL (4.20-5.40)
[2022-04-12 19:06] LABS: ALT (SGPT) 9 U/L (8-55); AST (SGOT) 12 U/L (5-34); Albumin 3.9 g/dL (3.4-4.8); Alkaline Phosphatase 104 U/L (40-110); Anion Gap 14 mmol/L (10-20); BUN (Urea Nitrogen) 53 mg/dL (9.8-20.1); Bilirubin, Total 0.8 mg/dL (0.2-1.2); Calc. Creatinine Clearance 0 mL/min (70-130); Calcium 9.2 mg/dL (7.8-10.44); Carbon Dioxide 24 mmol/L (23-31); Chloride 108 mmol/L (98-107); Estimated GFR 14; Glucose 87 mg/dL (80-115); Potassium 4.2 mmol/L (3.5-5.1); Protein, Total 6.9 g/dL (5.8-8.1); Sodium 142 mmol/L (136-145)
[2022-04-12] MEDS ORDERED: Nitroglycerin 0.4 MG TAB 1 EACH ONE (19:43)
[2022-04-12] MEDS ORDERED: Nitroglycerin 2% Ointment 1 INCH/1 GM Packet ONE (19:48)
[2022-04-12] MEDS ORDERED: Torsemide 20 MG TAB PO SCH (20:00)
[2022-04-12] MEDS ORDERED: HumaLOG 300 UNITS/3 ML VIAL SC PRN ×2 (21:24)
[2022-04-12] MEDS ORDERED: Acetaminophen 325 MG TAB PO PRN (21:24)
[2022-04-12] MEDS ORDERED: Dextrose 50% Abboject 50 ML SYRINGE SLOW IVP PRN (21:24)
[2022-04-12] MEDS ORDERED: Dextrose 5% in Water 1,000 ML IV PRN (21:24)
[2022-04-12] MEDS ORDERED: Morphine 2 MG/ML VIAL SLOW IVP PRN (21:28)
[2022-04-12] MEDS ORDERED: Furosemide 100 MG/10 ML VIAL SLOW IVP SCH (21:30)
[2022-04-12 21:36] LABS: Troponin I 0.017 ng/mL (< 0.028)
[2022-04-12] MEDS ORDERED: NIFEdipine XL 90 MG TAB PO SCH (22:15)
[2022-04-12] MEDS ORDERED: hydrALAZINE 25 MG TAB PO SCH (22:30)
[2022-04-12 22:58] VITALS: BMI 23.7
[2022-04-12] MEDS: Melatonin 3 MG TAB PO PRN (23:28)
[2022-04-12] MEDS: Nicotine 14 MG PATCH TD SCH (23:34)
[2022-04-13 00:14] LABS: Troponin I 0.028 ng/mL (< 0.028)
[2022-04-13 04:59] LABS: #Eosinphils 0.1 thou/uL (0.0-0.7); #Lymphocytes 0.8 thou/uL (1.20-3.40); #Monocytes 0.5 thou/uL (0.11-0.59); #Neutrophils 3.8 thou/uL (1.40-6.50); %Basophils 0.2 % (0.0-1.0); %Lymphocytes 15.9 % (21.0-51.0); %Monocytes 10.2 % (0.0-10.0); %Neutrophils 71.7 % (42.0-75.0); Hemoglobin 6.7 g/dL (12.0-16.0); Mean Corpuscular HGB CONC 32.4 g/dL (32.0-36.0); Mean Corpuscular Hemoglobin 27.6 pg (27.0-31.0); Mean Corpuscular Volume 85.1 fL (78.0-98.0); Mean Platelet Volume 9.1 fL (7.4-10.4); Platelet Count 119 thou/uL (130-400); RBC Distribution Width 21.1 % (11.5-14.5); Red Blood Cell (RBC) Count 2.42 mill/uL (4.20-5.40); White Blood Cell (WBC) Count 5.2 thou/uL (4.8-10.8)
[2022-04-13 05:16] LABS: Anion Gap 14 mmol/L (10-20); BUN (Urea Nitrogen) 49 mg/dL (9.8-20.1); Calc. Creatinine Clearance 16 mL/min (70-130); Calcium 8.9 mg/dL (7.8-10.44); Carbon Dioxide 23 mmol/L (23-31); Chloride 106 mmol/L (98-107); Estimated GFR 13; Glucose 152 mg/dL (80-115); Potassium 4.5 mmol/L (3.5-5.1); Sodium 138 mmol/L (136-145)
[2022-04-13] MEDS: Furosemide 40 MG/4 ML VIAL SLOW IVP SCH ×2 (05:32→15:25)
[2022-04-13] MEDS ORDERED: Isosorbide Dinitrate 20 MG TAB PO SCH (09:00)
[2022-04-13] MEDS ORDERED: hydrALAZINE 25 MG TAB PO SCH (09:00)
[2022-04-13] MEDS ORDERED: NIFEdipine XL 90 MG TAB PO SCH (09:00)
[2022-04-13] MEDS ORDERED: cloNIDine 0.1 MG TAB PO SCH (09:00)
[2022-04-13] MEDS ORDERED: Aspirin 81 mg Enteric Coated Tablet PO SCH (09:00)
[2022-04-13] MEDS: Enoxaparin Sodium 30 MG/0.3 ML SYRINGE SC SCH (09:03)
[2022-04-13] MEDS: Carvedilol 25 MG TAB PO SCH ×2 (09:03→20:39)
[2022-04-13] MEDS: hydrALAZINE 25 MG TAB PO SCH ×2 (15:25→20:40)
[2022-04-13] MEDS: cloNIDine 0.2 MG TAB PO SCH ×2 (15:26→20:40)
[2022-04-13] MEDS: Isosorbide Dinitrate 20 MG TAB PO SCH ×2 (15:26→20:40)
[2022-04-13] MEDS: Epoetin (ESRD) 10,000 UNITS/ML VIAL SC SCH (15:26)
[2022-04-13] MEDS: Ferrous Sulfate 325 MG TAB PO SCH (16:47)
[2022-04-13 17:19] LABS: Hemoglobin 7.5 g/dL (12.0-16.0)
[2022-04-13] MEDS: Nicotine 14 MG PATCH TD SCH (17:26)
[2022-04-13] MEDS: Atorvastatin Calcium 40 MG TAB PO SCH (20:39)
[2022-04-13] MEDS ORDERED: Atorvastatin Calcium 40 MG TAB PO SCH (21:00)
[2022-04-14 05:01] LABS: #Eosinphils 0.1 thou/uL (0.0-0.7); #Monocytes 0.5 thou/uL (0.11-0.59); %Basophils 0.7 % (0.0-1.0); %Eosinophils 2.8 % (0.0-10.0); %Lymphocytes 21.4 % (21.0-51.0); %Monocytes 10.4 % (0.0-10.0); %Neutrophils 64.7 % (42.0-75.0); Hemoglobin 7.6 g/dL (12.0-16.0); Mean Corpuscular HGB CONC 33.4 g/dL (32.0-36.0); Mean Corpuscular Hemoglobin 28.3 pg (27.0-31.0); Mean Corpuscular Volume 84.8 fL (78.0-98.0); Mean Platelet Volume 8.4 fL (7.4-10.4); Platelet Count 116 thou/uL (130-400); RBC Distribution Width 20.1 % (11.5-14.5); Red Blood Cell (RBC) Count 2.68 mill/uL (4.20-5.40); White Blood Cell (WBC) Count 4.6 thou/uL (4.8-10.8)
[2022-04-14 05:06] LABS: Anion Gap 15 mmol/L (10-20); BUN (Urea Nitrogen) 58 mg/dL (9.8-20.1); Calc. Creatinine Clearance 14 mL/min (70-130); Calcium 9.1 mg/dL (7.8-10.44); Carbon Dioxide 24 mmol/L (23-31); Chloride 103 mmol/L (98-107); Estimated GFR 12; Glucose 124 mg/dL (80-115); Potassium 4.3 mmol/L (3.5-5.1); Sodium 138 mmol/L (136-145)
[2022-04-14] MEDS: Furosemide 40 MG/4 ML VIAL SLOW IVP SCH (05:57)
[2022-04-14] MEDS ORDERED: Ferrous Sulfate 325 MG TAB PO SCH (08:00)
[2022-04-14] MEDS ORDERED: Iopamidol 300 61% 50 ML VIAL FS ONE (09:13)
[2022-04-14] MEDS: Enoxaparin Sodium 30 MG/0.3 ML SYRINGE SC SCH (09:35)
[2022-04-14] MEDS: Bumetanide 1 MG TAB PO SCH (09:35)
[2022-04-14] MEDS: Ferrous Sulfate 325 MG TAB PO SCH ×2 (09:36→16:16)
[2022-04-14] MEDS: hydrALAZINE 25 MG TAB PO SCH ×3 (09:36→20:03)
[2022-04-14] MEDS: Calcitriol 0.25 MCG CAP PO SCH (09:36)
[2022-04-14] MEDS: cloNIDine 0.2 MG TAB PO SCH ×3 (09:36→20:03)
[2022-04-14] MEDS: Carvedilol 25 MG TAB PO SCH ×2 (09:36→20:02)
[2022-04-14] MEDS: Isosorbide Dinitrate 20 MG TAB PO SCH ×3 (09:36→20:03)
[2022-04-14] MEDS: Aspirin 81 mg Enteric Coated Tablet PO SCH (09:36)
[2022-04-14] MEDS ORDERED: Clindamycin/D5W 900 MG in Premix Bag 1 BAG IVPB SCH (11:00)
[2022-04-14] MEDS: Atorvastatin Calcium 40 MG TAB PO SCH (20:02)
[2022-04-14] MEDS: Nicotine 14 MG PATCH TD SCH (20:03)
[2022-04-14] MEDS: Melatonin 3 MG TAB PO PRN (20:05)
[2022-04-15] MEDS: hydrALAZINE 20 MG/ML VIAL SLOW IVP PRN (03:35)
[2022-04-15 04:10] LABS: #Eosinphils 0.1 thou/uL (0.0-0.7); #Lymphocytes 0.9 thou/uL (1.20-3.40); #Monocytes 0.4 thou/uL (0.11-0.59); #Neutrophils 2.7 thou/uL (1.40-6.50); %Basophils 0.5 % (0.0-1.0); %Eosinophils 2.8 % (0.0-10.0); %Lymphocytes 21.8 % (21.0-51.0); %Monocytes 10.2 % (0.0-10.0); %Neutrophils 64.8 % (42.0-75.0); Hemoglobin 7.9 g/dL (12.0-16.0); Mean Corpuscular HGB CONC 33.2 g/dL (32.0-36.0); Mean Corpuscular Hemoglobin 28.3 pg (27.0-31.0); Mean Corpuscular Volume 85.1 fL (78.0-98.0); Mean Platelet Volume 7.9 fL (7.4-10.4); Platelet Count 120 thou/uL (130-400); White Blood Cell (WBC) Count 4.2 thou/uL (4.8-10.8)
[2022-04-15 04:57] LABS: Chloride 100 mmol/L (98-107); Potassium 4.2 mmol/L (3.5-5.1); Sodium 136 mmol/L (136-145)
[2022-04-15 04:58] LABS: Anion Gap 16 mmol/L (10-20); BUN (Urea Nitrogen) 60 mg/dL (9.8-20.1); Calc. Creatinine Clearance 14 mL/min (70-130); Calcium 9.4 mg/dL (7.8-10.44); Carbon Dioxide 24 mmol/L (23-31); Estimated GFR 12; Glucose 114 mg/dL (80-115)
[2022-04-15] MEDS ORDERED: cloNIDine 0.2 MG TAB PO SCH (07:03)
[2022-04-15] MEDS: Calcitriol 0.25 MCG CAP PO SCH (08:25)
[2022-04-15] MEDS: Carvedilol 25 MG TAB PO SCH ×2 (08:26→20:12)
[2022-04-15] MEDS: Ferrous Sulfate 325 MG TAB PO SCH ×2 (08:26→16:36)
[2022-04-15] MEDS: cloNIDine 0.3 MG TAB PO SCH ×3 (08:26→20:12)
[2022-04-15] MEDS: Aspirin 81 mg Enteric Coated Tablet PO SCH (08:26)
[2022-04-15] MEDS: Bumetanide 1 MG TAB PO SCH (08:26)
[2022-04-15] MEDS: hydrALAZINE 25 MG TAB PO SCH ×3 (08:26→20:13)
[2022-04-15] MEDS: Isosorbide Dinitrate 20 MG TAB PO SCH ×3 (08:26→20:13)
[2022-04-15] MEDS: Tamsulosin HCl 0.4 MG CAP PO SCH (08:27)
[2022-04-15] MEDS ORDERED: Heparin 10,000 UNITS/ 10 ML VIAL ONE ×2 (08:34→10:25)
[2022-04-15] MEDS: Enoxaparin Sodium 30 MG/0.3 ML SYRINGE SC SCH (08:42)
[2022-04-15] MEDS ORDERED: Midazolam HCl 2 mg/2 ml Vial ONE (09:35)
[2022-04-15] MEDS ORDERED: Lidocaine 1% PF 5 ML VIAL ONE (10:25)
[2022-04-15] MEDS ORDERED: Protamine Sulfate 50 MG/5 ML VIAL ONE (10:25)
[2022-04-15] MEDS ORDERED: EPINEPHrine 1 MG/ML AMP ONE (10:25)
[2022-04-15] MEDS ORDERED: Heparin 5,000 UNITS/ML VIAL ONE (10:25)
[2022-04-15] MEDS ORDERED: Bupivacaine PF 0.5% 30 ML VIAL ONE (10:25)
[2022-04-15] MEDS ORDERED: fentaNYL Citrate/PF 100 MCG/2 ML SYRINGE ONE (10:26)
[2022-04-15] MEDS ORDERED: Propofol 500 MG/50 ML VIAL ONE (10:27)
[2022-04-15] MEDS ORDERED: PROPOFOL 40 ML ONE (10:27)
[2022-04-15] MEDS ORDERED: Phenylephrine 10 MG/ML VIAL ONE ×2 (10:27→10:36)
[2022-04-15] MEDS ORDERED: Famotidine/PF 20 mg/2ml Vial ONE (10:27)
[2022-04-15] MEDS ORDERED: Clindamycin/D5W 900 mg/50 ml Premix Bag ONE (10:44)
[2022-04-15] MEDS ORDERED: Ropivacaine 0.5% HCl/PF (150 MG/30 ML VIAL) ONE (10:52)
[2022-04-15] MEDS ORDERED: PROPOFOL 200 MG/20 ML VIAL ONE (10:52)
[2022-04-15] MEDS ORDERED: Ondansetron PF 4 MG/2 ML Vial ONE (10:52)
[2022-04-15] MEDS ORDERED: Ondansetron HCl/PF 4 MG/2 ML Vial IVP PRN (12:32)
[2022-04-15] MEDS ORDERED: traMADol HCl 50 MG TAB PO PRN (12:41)
[2022-04-15] MEDS ORDERED: Acetaminophen 500 MG TAB PO SCH (12:45)
[2022-04-15 14:54] LABS: HBSAB Concentration Less than 8.00 mIU/mL; HBSAg Index 0.24 S/CO (0-0.99); Hep B Core Total Ab Non-Reactive (NonReactive); Hep B Core Total Index 0.07 S/CO (0-0.79); Hep B Surf AB Non-Reactive (NonReactive); Hep B Surf Ag Non-Reactive S/CO (NonReactive); Hep C IgG Ab Non-Reactive (NonReactive); Hep C Index 0.06 S/CO (0-0.79)
[2022-04-15] MEDS ORDERED: Tuberculin PPD 0.1 ML VIAL I-DERMAL SCH (17:15)
[2022-04-15] MEDS: Melatonin 3 MG TAB PO PRN (20:12)
[2022-04-15] MEDS: Atorvastatin Calcium 40 MG TAB PO SCH (20:12)
[2022-04-15] MEDS: Nicotine 14 MG PATCH TD SCH (20:13)
[2022-04-15] MEDS ORDERED: FLU VACC QS2022-23(6MOS UP)/PF 60 MCG/0.5 ML SYRINGE IM ONE (23:15)
[2022-04-16] MEDS: Acetaminophen 500 MG TAB PO PRN ×2 (04:08→20:44)
[2022-04-16] MEDS: hydrALAZINE 20 MG/ML VIAL SLOW IVP PRN (04:08)
[2022-04-16 04:20] LABS: #Eosinphils 0.1 thou/uL (0.0-0.7); #Lymphocytes 0.7 thou/uL (1.20-3.40); #Monocytes 0.4 thou/uL (0.11-0.59); #Neutrophils 3.6 thou/uL (1.40-6.50); %Eosinophils 1.6 % (0.0-10.0); %Lymphocytes 14.6 % (21.0-51.0); %Monocytes 8.6 % (0.0-10.0); %Neutrophils 74.2 % (42.0-75.0); Hemoglobin 7.8 g/dL (12.0-16.0); Mean Corpuscular HGB CONC 31.9 g/dL (32.0-36.0); Mean Corpuscular Hemoglobin 27.5 pg (27.0-31.0); Mean Corpuscular Volume 86.4 fL (78.0-98.0); Mean Platelet Volume 8.1 fL (7.4-10.4); Platelet Count 121 thou/uL (130-400); RBC Distribution Width 20.2 % (11.5-14.5); Red Blood Cell (RBC) Count 2.84 mill/uL (4.20-5.40); White Blood Cell (WBC) Count 4.8 thou/uL (4.8-10.8)
[2022-04-16 04:43] LABS: Anion Gap 14 mmol/L (10-20); BUN (Urea Nitrogen) 49 mg/dL (9.8-20.1); Calc. Creatinine Clearance 15 mL/min (70-130); Calcium 9.4 mg/dL (7.8-10.44); Carbon Dioxide 27 mmol/L (23-31); Chloride 100 mmol/L (98-107); Estimated GFR 13; Glucose 145 mg/dL (80-115); Potassium 4.5 mmol/L (3.5-5.1); Sodium 136 mmol/L (136-145)
[2022-04-16] MEDS ORDERED: Heparin 10,000 UNITS/ 10 ML VIAL ONE (08:27)
[2022-04-16] MEDS ORDERED: Losartan 25 MG TAB PO SCH ×2 (09:00→10:15)
[2022-04-16] MEDS: Aspirin 81 mg Enteric Coated Tablet PO SCH (10:07)
[2022-04-16] MEDS: Calcitriol 0.25 MCG CAP PO SCH (10:07)
[2022-04-16] MEDS: Carvedilol 25 MG TAB PO SCH ×2 (10:07→20:44)
[2022-04-16] MEDS: Enoxaparin Sodium 30 MG/0.3 ML SYRINGE SC SCH (10:08)
[2022-04-16] MEDS: cloNIDine 0.3 MG TAB PO SCH ×3 (10:08→20:43)
[2022-04-16] MEDS: hydrALAZINE 25 MG TAB PO SCH ×3 (10:08→20:42)
[2022-04-16] MEDS: Isosorbide Dinitrate 20 MG TAB PO SCH ×3 (10:09→20:43)
[2022-04-16] MEDS: Ferrous Sulfate 325 MG TAB PO SCH ×2 (10:09→16:31)
[2022-04-16] MEDS: Tamsulosin HCl 0.4 MG CAP PO SCH (10:09)
[2022-04-16] MEDS: Atorvastatin Calcium 40 MG TAB PO SCH (20:41)
[2022-04-16] MEDS: Nicotine 14 MG PATCH TD SCH (20:43)
[2022-04-16] MEDS: Melatonin 3 MG TAB PO PRN (20:44)
[2022-04-17 05:37] LABS: Anion Gap 11 mmol/L (10-20); BUN (Urea Nitrogen) 32 mg/dL (9.8-20.1); Calc. Creatinine Clearance 16 mL/min (70-130); Calcium 9.2 mg/dL (7.8-10.44); Carbon Dioxide 28 mmol/L (23-31); Chloride 99 mmol/L (98-107); Estimated GFR 14; Glucose 111 mg/dL (80-115); Potassium 4.2 mmol/L (3.5-5.1); Sodium 134 mmol/L (136-145)
[2022-04-17 05:39] LABS: Iron 65 ug/dL (50-170); Iron Binding Capacity, Total 318 mcg/dL (265-497)
[2022-04-17 05:42] LABS: #Basophils 0.1 thou/uL (0.0-0.2); #Eosinphils 0.1 thou/uL (0.0-0.7); #Lymphocytes 0.9 thou/uL (1.20-3.40); #Monocytes 0.6 thou/uL (0.11-0.59); #Neutrophils 3.2 thou/uL (1.40-6.50); %Basophils 1.4 % (0.0-1.0); %Eosinophils 2.8 % (0.0-10.0); %Lymphocytes 18.7 % (21.0-51.0); %Monocytes 12.3 % (0.0-10.0); %Neutrophils 64.8 % (42.0-75.0); Hemoglobin 8.2 g/dL (12.0-16.0); Mean Corpuscular Hemoglobin 27.6 pg (27.0-31.0); Mean Corpuscular Volume 86.4 fL (78.0-98.0); Mean Platelet Volume 8.3 fL (7.4-10.4); Platelet Count 112 thou/uL (130-400); RBC Distribution Width 20.2 % (11.5-14.5); Red Blood Cell (RBC) Count 2.97 mill/uL (4.20-5.40); White Blood Cell (WBC) Count 4.9 thou/uL (4.8-10.8)
[2022-04-17] MEDS: Carvedilol 25 MG TAB PO SCH ×2 (08:49→20:21)
[2022-04-17] MEDS: hydrALAZINE 25 MG TAB PO SCH ×3 (08:49→20:22)
[2022-04-17] MEDS: Calcitriol 0.25 MCG CAP PO SCH (08:49)
[2022-04-17] MEDS: Ferrous Sulfate 325 MG TAB PO SCH ×2 (08:49→17:11)
[2022-04-17] MEDS: cloNIDine 0.3 MG TAB PO SCH ×3 (08:49→20:21)
[2022-04-17] MEDS: Aspirin 81 mg Enteric Coated Tablet PO SCH (08:49)
[2022-04-17] MEDS: Isosorbide Dinitrate 20 MG TAB PO SCH ×3 (08:50→20:22)
[2022-04-17] MEDS: Enoxaparin Sodium 30 MG/0.3 ML SYRINGE SC SCH (08:50)
[2022-04-17] MEDS: Tamsulosin HCl 0.4 MG CAP PO SCH (08:50)
[2022-04-17] MEDS ORDERED: Losartan 25 MG TAB PO SCH (09:00)
[2022-04-17] MEDS: Acetaminophen 500 MG TAB PO PRN (14:43)
[2022-04-17] MEDS: Atorvastatin Calcium 40 MG TAB PO SCH (20:21)
[2022-04-17] MEDS: Nicotine 14 MG PATCH TD SCH (20:25)
[2022-04-17] MEDS: Melatonin 3 MG TAB PO PRN (20:34)
[2022-04-18 04:33] LABS: Anion Gap 15 mmol/L (10-20); BUN (Urea Nitrogen) 44 mg/dL (9.8-20.1); Calc. Creatinine Clearance 13 mL/min (70-130); Calcium 9.5 mg/dL (7.8-10.44); Carbon Dioxide 24 mmol/L (23-31); Chloride 99 mmol/L (98-107); Estimated GFR 11; Glucose 135 mg/dL (80-115); Potassium 4.3 mmol/L (3.5-5.1); Sodium 134 mmol/L (136-145)
[2022-04-18 04:50] LABS: #Eosinphils 0.1 thou/uL (0.0-0.7); #Monocytes 0.6 thou/uL (0.11-0.59); #Neutrophils 3.3 thou/uL (1.40-6.50); %Basophils 0.9 % (0.0-1.0); %Eosinophils 2.8 % (0.0-10.0); %Lymphocytes 19.1 % (21.0-51.0); %Monocytes 12.5 % (0.0-10.0); %Neutrophils 64.7 % (42.0-75.0); Hemoglobin 8.2 g/dL (12.0-16.0); Mean Corpuscular HGB CONC 33.7 g/dL (32.0-36.0); Mean Corpuscular Hemoglobin 29.2 pg (27.0-31.0); Mean Corpuscular Volume 86.8 fL (78.0-98.0); Mean Platelet Volume 8.2 fL (7.4-10.4); Platelet Count 110 thou/uL (130-400); RBC Distribution Width 19.9 % (11.5-14.5); Red Blood Cell (RBC) Count 2.81 mill/uL (4.20-5.40); White Blood Cell (WBC) Count 5.1 thou/uL (4.8-10.8)
[2022-04-18] MEDS: Carvedilol 25 MG TAB PO SCH ×2 (08:46→21:10)
[2022-04-18] MEDS: Enoxaparin Sodium 30 MG/0.3 ML SYRINGE SC SCH (08:46)
[2022-04-18] MEDS: hydrALAZINE 25 MG TAB PO SCH ×3 (08:46→21:10)
[2022-04-18] MEDS: cloNIDine 0.3 MG TAB PO SCH ×3 (08:46→21:10)
[2022-04-18] MEDS: Ferrous Sulfate 325 MG TAB PO SCH ×2 (08:46→17:30)
[2022-04-18] MEDS: Isosorbide Dinitrate 20 MG TAB PO SCH ×3 (08:47→21:10)
[2022-04-18] MEDS: Aspirin 81 mg Enteric Coated Tablet PO SCH (08:47)
[2022-04-18] MEDS: Tamsulosin HCl 0.4 MG CAP PO SCH (08:47)
[2022-04-18] MEDS: Calcitriol 0.25 MCG CAP PO SCH (08:47)
[2022-04-18] MEDS: Acetaminophen 500 MG TAB PO PRN (15:44)
[2022-04-18] MEDS: Atorvastatin Calcium 40 MG TAB PO SCH (21:10)
[2022-04-18] MEDS: Melatonin 3 MG TAB PO PRN (21:11)
[2022-04-18] MEDS: Nicotine 14 MG PATCH TD SCH (21:13)
[2022-04-19 04:39] LABS: #Eosinphils 0.2 thou/uL (0.0-0.7); #Lymphocytes 1.1 thou/uL (1.20-3.40); #Monocytes 0.5 thou/uL (0.11-0.59); #Neutrophils 3.4 thou/uL (1.40-6.50); %Basophils 0.8 % (0.0-1.0); %Eosinophils 2.9 % (0.0-10.0); %Lymphocytes 20.5 % (21.0-51.0); %Monocytes 9.3 % (0.0-10.0); %Neutrophils 66.5 % (42.0-75.0); Mean Corpuscular HGB CONC 32.7 g/dL (32.0-36.0); Mean Corpuscular Hemoglobin 27.8 pg (27.0-31.0); Mean Corpuscular Volume 85.2 fL (78.0-98.0); Mean Platelet Volume 8.6 fL (7.4-10.4); Platelet Count 112 thou/uL (130-400); RBC Distribution Width 19.8 % (11.5-14.5); Red Blood Cell (RBC) Count 2.89 mill/uL (4.20-5.40); White Blood Cell (WBC) Count 5.2 thou/uL (4.8-10.8)
[2022-04-19 04:58] LABS: Anion Gap 15 mmol/L (10-20); BUN (Urea Nitrogen) 49 mg/dL (9.8-20.1); Calc. Creatinine Clearance 11 mL/min (70-130); Calcium 9.4 mg/dL (7.8-10.44); Carbon Dioxide 25 mmol/L (23-31); Chloride 98 mmol/L (98-107); Estimated GFR 10; Glucose 141 mg/dL (80-115); Potassium 4.1 mmol/L (3.5-5.1); Sodium 134 mmol/L (136-145)
[2022-04-19] MEDS ORDERED: Heparin 10,000 UNITS/ 10 ML VIAL ONE (12:15)
[2022-04-19] MEDS: Aspirin 81 mg Enteric Coated Tablet PO SCH (12:48)
[2022-04-19] MEDS: Ferrous Sulfate 325 MG TAB PO SCH ×2 (12:48→16:38)
[2022-04-19] MEDS: Calcitriol 0.25 MCG CAP PO SCH (12:48)
[2022-04-19] MEDS: hydrALAZINE 25 MG TAB PO SCH ×3 (12:48→22:11)
[2022-04-19] MEDS: Carvedilol 25 MG TAB PO SCH ×2 (12:49→22:10)
[2022-04-19] MEDS: cloNIDine 0.3 MG TAB PO SCH ×3 (12:49→22:12)
[2022-04-19] MEDS: Tamsulosin HCl 0.4 MG CAP PO SCH (12:49)
[2022-04-19] MEDS: Isosorbide Dinitrate 20 MG TAB PO SCH ×4 (12:49→22:11)
[2022-04-19] MEDS: Enoxaparin Sodium 30 MG/0.3 ML SYRINGE SC SCH (12:49)
[2022-04-19] MEDS: Atorvastatin Calcium 40 MG TAB PO SCH (22:09)
[2022-04-19] MEDS: Sacubitril 49 MG/Valsartan 51 MG TABLET PO SCH (22:11)
[2022-04-19] MEDS: Melatonin 3 MG TAB PO PRN (22:12)
[2022-04-20] MEDS: hydrALAZINE 20 MG/ML VIAL SLOW IVP PRN (01:42)
[2022-04-20] MEDS: Nicotine 14 MG PATCH TD SCH ×2 (02:52→20:47)
[2022-04-20 05:19] LABS: Anion Gap 14 mmol/L (10-20); BUN (Urea Nitrogen) 24 mg/dL (9.8-20.1); Calc. Creatinine Clearance 18 mL/min (70-130); Calcium 9.2 mg/dL (7.8-10.44); Carbon Dioxide 26 mmol/L (23-31); Chloride 97 mmol/L (98-107); Estimated GFR 18; Glucose 130 mg/dL (80-115); Potassium 4.2 mmol/L (3.5-5.1); Sodium 133 mmol/L (136-145)
[2022-04-20 05:23] LABS: #Lymphocytes 1.1 thou/uL (1.20-3.40); #Monocytes 0.6 thou/uL (0.11-0.59); %Basophils 0.4 % (0.0-1.0); %Eosinophils 0.7 % (0.0-10.0); %Lymphocytes 15.9 % (21.0-51.0); %Monocytes 8.4 % (0.0-10.0); %Neutrophils 74.6 % (42.0-75.0); Hemoglobin 8.4 g/dL (12.0-16.0); Mean Corpuscular HGB CONC 32.7 g/dL (32.0-36.0); Mean Corpuscular Volume 85.5 fL (78.0-98.0); Mean Platelet Volume 8.9 fL (7.4-10.4); Platelet Count 101 thou/uL (130-400); RBC Distribution Width 19.8 % (11.5-14.5); Red Blood Cell (RBC) Count 3.01 mill/uL (4.20-5.40); White Blood Cell (WBC) Count 6.7 thou/uL (4.8-10.8)
[2022-04-20] MEDS: Sacubitril 49 MG/Valsartan 51 MG TABLET PO SCH ×2 (10:02→20:42)
[2022-04-20] MEDS: Carvedilol 25 MG TAB PO SCH ×2 (10:02→20:42)
[2022-04-20] MEDS: cloNIDine 0.3 MG TAB PO SCH ×3 (10:02→20:42)
[2022-04-20] MEDS: Tamsulosin HCl 0.4 MG CAP PO SCH (10:03)
[2022-04-20] MEDS: Epoetin (ESRD) 10,000 UNITS/ML VIAL SC SCH (10:03)
[2022-04-20] MEDS: Isosorbide Dinitrate 20 MG TAB PO SCH ×3 (10:03→20:41)
[2022-04-20] MEDS: Ferrous Sulfate 325 MG TAB PO SCH ×2 (10:03→16:45)
[2022-04-20] MEDS: hydrALAZINE 25 MG TAB PO SCH ×3 (10:03→20:42)
[2022-04-20] MEDS: Aspirin 81 mg Enteric Coated Tablet PO SCH (10:03)
[2022-04-20] MEDS: Calcitriol 0.25 MCG CAP PO SCH (10:03)
[2022-04-20] MEDS: Enoxaparin Sodium 30 MG/0.3 ML SYRINGE SC SCH (10:04)
[2022-04-20 16:36] LABS: QuantiFERON-TB Gold Plus Negative (Negative)
[2022-04-20] MEDS: Atorvastatin Calcium 40 MG TAB PO SCH (20:42)
[2022-04-21] MEDS: Nicotine 14 MG PATCH TD SCH (04:20)
[2022-04-21 04:35] LABS: Anion Gap 14 mmol/L (10-20); BUN (Urea Nitrogen) 38 mg/dL (9.8-20.1); Calc. Creatinine Clearance 13 mL/min (70-130); Calcium 8.9 mg/dL (7.8-10.44); Carbon Dioxide 26 mmol/L (23-31); Chloride 95 mmol/L (98-107); Estimated GFR 12; Glucose 131 mg/dL (80-115); Potassium 4.1 mmol/L (3.5-5.1); Sodium 131 mmol/L (136-145)
[2022-04-21 04:50] LABS: #Eosinphils 0.1 thou/uL (0.0-0.7); #Lymphocytes 1.3 thou/uL (1.20-3.40); #Monocytes 0.6 thou/uL (0.11-0.59); %Basophils 0.8 % (0.0-1.0); %Eosinophils 2.6 % (0.0-10.0); %Lymphocytes 24.6 % (21.0-51.0); %Monocytes 12.2 % (0.0-10.0); %Neutrophils 59.8 % (42.0-75.0); Hemoglobin 8.6 g/dL (12.0-16.0); Mean Corpuscular HGB CONC 32.9 g/dL (32.0-36.0); Mean Corpuscular Hemoglobin 28.3 pg (27.0-31.0); Mean Platelet Volume 8.7 fL (7.4-10.4); Platelet Count 100 thou/uL (130-400); Platelet Morphology Comment Appears Decreased; RBC Distribution Width 19.8 % (11.5-14.5); Red Blood Cell (RBC) Count 3.03 mill/uL (4.20-5.40); White Blood Cell (WBC) Count 5.1 thou/uL (4.8-10.8)
[2022-04-21 07:45] VITALS: TEMP 97.4
[2022-04-21] MEDS ORDERED: cloNIDine 0.3 MG TAB PO SCH (09:00)
[2022-04-21] MEDS ORDERED: Heparin 10,000 UNITS/ 10 ML VIAL ONE (09:24)
[2022-04-21] MEDS: Sacubitril 49 MG/Valsartan 51 MG TABLET PO SCH (09:57)
[2022-04-21] MEDS: Carvedilol 25 MG TAB PO SCH (09:57)
[2022-04-21] MEDS: Isosorbide Dinitrate 20 MG TAB PO SCH ×2 (09:57→15:43)
[2022-04-21] MEDS: hydrALAZINE 25 MG TAB PO SCH ×2 (09:57→15:42)
[2022-04-21] MEDS: Ferrous Sulfate 325 MG TAB PO SCH (09:57)
[2022-04-21] MEDS: Calcitriol 0.25 MCG CAP PO SCH (12:48)
[2022-04-21] MEDS: Aspirin 81 mg Enteric Coated Tablet PO SCH (12:48)
[2022-04-21] MEDS: Enoxaparin Sodium 30 MG/0.3 ML SYRINGE SC SCH (12:48)
[2022-04-21 15:44] VITALS: BP 166/70
== END 2022-04-21 16:04 | disposition home or self-care (01) | DRG 264 ==
LOC: ERS 15:25 → 2NO 20:53 → INTOOBSV 20:53 → 2NO 22:35 → OBSVTOIN 04-13 15:11
PROVIDERS: ADMIT Internal Medicine; ATTEND Internal Medicine
PROC: 30233N1 Transfusion of Nonautologous Red Blood Cells into Peripheral Vein, Percutaneous Approach (ICD-10-PCS; principal; 2022-04-13)
PROC: 031C0ZF Bypass Left Radial Artery to Lower Arm Vein, Open Approach (ICD-10-PCS; 2022-04-15)
PROC: 0JH63XZ Insertion of Tunneled Vascular Access Device into Chest Subcutaneous Tissue and Fascia, Percutaneous Approach (ICD-10-PCS; 2022-04-15)
PROC: 02HV33Z Insertion of Infusion Device into Superior Vena Cava, Percutaneous Approach (ICD-10-PCS; 2022-04-15)
PROC: B5181ZA Fluoroscopy of Superior Vena Cava using Low Osmolar Contrast, Guidance (ICD-10-PCS; 2022-04-15)
PROC: B548ZZA Ultrasonography of Superior Vena Cava, Guidance (ICD-10-PCS; 2022-04-15)
PROC: 5A1D70Z Performance of Urinary Filtration, Intermittent, Less than 6 Hours Per Day (ICD-10-PCS; 2022-04-15)
DX: I13.2 Hypertensive heart and chronic kidney disease with heart failure and with stage 5 chronic kidney disease, or end stage renal disease (principal); N18.6 End stage renal disease; I50.33 Acute on chronic diastolic (congestive) heart failure; I16.1 Hypertensive emergency; N17.9 Acute kidney failure, unspecified; L76.32 Postprocedural hematoma of skin and subcutaneous tissue following other procedure; I16.0 Hypertensive urgency; Z20.822 Contact with and (suspected) exposure to COVID-19; F17.210 Nicotine dependence, cigarettes, uncomplicated; E11.22 Type 2 diabetes mellitus with diabetic chronic kidney disease; E78.00 Pure hypercholesterolemia, unspecified; F32.A Depression, unspecified; I25.5 Ischemic cardiomyopathy; R79.89 Other specified abnormal findings of blood chemistry; D63.1 Anemia in chronic kidney disease; I25.10 Atherosclerotic heart disease of native coronary artery without angina pectoris; I08.1 Rheumatic disorders of both mitral and tricuspid valves; I95.1 Orthostatic hypotension; Y83.8 Other surgical procedures as the cause of abnormal reaction of the patient, or of later complication, without mention of misadventure at the time of the procedure; Z95.1 Presence of aortocoronary bypass graft; Z95.810 Presence of automatic (implantable) cardiac defibrillator; Z91.14 Patient's other noncompliance with medication regimen; Z88.1 Allergy status to other antibiotic agents; Z79.899 Other long term (current) drug therapy; Z90.710 Acquired absence of both cervix and uterus; Z82.49 Family history of ischemic heart disease and other diseases of the circulatory system; Z83.3 Family history of diabetes mellitus
CPT/HCPCS: 36005; 36415; 36416; 36430; 71045; 75820; 76937; 80048; 80053; 82274; 82728; 83540; 83550; 83880; 84484; 85025; 86480; 86580; 86704; 86850; 86900; 86901; 87340; 87811; 90935; 93005; 93970; 96374; 96376; C1752; C1776; G0257; G0378; J0171; J0360; J1644; J1650; J1940; J2250; J2270; J2370; J2405; J2704; J2720; J2795; J3490; P9016; Q4081; Q9967; S0020; S0028; U0003; U0005

== ENCOUNTER → 2022-06-09 | Day surgery (SDC) | payer MEDICARE, MEDICAID ==
[2022-06-08 13:48] VITALS: BMI 23.6
[~2022-06-09] MED LIST changes: -Heparin 1,000 UNITS/ML VIAL ONE; +Iopamidol 300 61% 100 ML VIAL FS ONE; +cloNIDine 0.1 MG TAB ONE
[2022-06-09 07:52] VITALS: BP 189/85; TEMP 98.3
== END | disposition home or self-care (01) ==
LOC: SPEC 06:44
PROVIDERS: ATTEND Specialist
PROC: B51W1ZZ Fluoroscopy of Dialysis Shunt/Fistula using Low Osmolar Contrast (ICD-10-PCS; principal; 2022-06-09)
DX: T82.590A Other mechanical complication of surgically created arteriovenous fistula, initial encounter (principal); I87.8 Other specified disorders of veins; I13.2 Hypertensive heart and chronic kidney disease with heart failure and with stage 5 chronic kidney disease, or end stage renal disease; E11.22 Type 2 diabetes mellitus with diabetic chronic kidney disease; N18.6 End stage renal disease; I50.43 Acute on chronic combined systolic (congestive) and diastolic (congestive) heart failure; E78.5 Hyperlipidemia, unspecified; F17.210 Nicotine dependence, cigarettes, uncomplicated; Z79.82 Long term (current) use of aspirin; Z79.899 Other long term (current) drug therapy; Z88.1 Allergy status to other antibiotic agents; Z95.810 Presence of automatic (implantable) cardiac defibrillator; Z99.2 Dependence on renal dialysis; Y81.3 Surgical instruments, materials and general- and plastic-surgery devices (including sutures) associated with adverse incidents
CPT/HCPCS: 36901; Q9967

== ENCOUNTER 2022-07-23 13:42 | Emergency (ER) | payer MEDICARE, MEDICAID ==
[2022-07-23 14:25] LABS: #Basophils 0.1 thou/uL (0.0-0.2); #Eosinphils 0.1 thou/uL (0.0-0.7); #Lymphocytes 1.2 thou/uL (1.20-3.40); #Monocytes 0.6 thou/uL (0.11-0.59); #Neutrophils 2.8 thou/uL (1.40-6.50); %Eosinophils 2.5 % (0.0-10.0); %Lymphocytes 25.7 % (21.0-51.0); %Monocytes 12.7 % (0.0-10.0); %Neutrophils 58.1 % (42.0-75.0); Mean Corpuscular HGB CONC 35.5 g/dL (32.0-36.0); Mean Corpuscular Hemoglobin 34.1 pg (27.0-31.0); Mean Corpuscular Volume 96.1 fl (78.0-98.0); Mean Platelet Volume 6.5 fL (7.4-10.4); Platelet Count 144 10x3/uL (130-400); RBC Distribution Width 16.2 % (11.5-14.5); Red Blood Cell (RBC) Count 2.36 mill/uL (4.20-5.40); White Blood Cell (WBC) Count 4.8 10x3/uL (4.8-10.8)
[2022-07-23 14:38] LABS: ALT (SGPT) Less than 7 U/L (8-55); AST (SGOT) 12 U/L (5-34); Albumin 3.7 g/dL (3.4-4.8); Alkaline Phosphatase 60 U/L (40-110); Anion Gap 16 mmol/L (10-20); BUN (Urea Nitrogen) 30 mg/dL (9.8-20.1); Bilirubin, Total 0.5 mg/dL (0.2-1.2); Calc. Creatinine Clearance 0 mL/min (70-130); Calcium 8.9 mg/dL (7.8-10.44); Carbon Dioxide 30 mmol/L (23-31); Chloride 95 mmol/L (98-107); Estimated GFR 11; Globulin 3.1 g/dL (2.4-3.5); Glucose 105 mg/dL (80-115); Potassium 3.6 mmol/L (3.5-5.1); Protein, Total 6.8 g/dL (5.8-8.1); Sodium 137 mmol/L (136-145)
[2022-07-23 15:01] LABS: CKMB 1.1 ng/mL (0-6.6)
[2022-07-23] MEDS ORDERED: Acetaminophen/Codeine 30-300mg Tablet ONE (20:38)
== END 2022-07-23 22:06 | disposition home or self-care (01) ==
LOC: ERS 13:42
DX: S32.511A Fracture of superior rim of right pubis, initial encounter for closed fracture (principal); E78.00 Pure hypercholesterolemia, unspecified; E11.9 Type 2 diabetes mellitus without complications; I11.0 Hypertensive heart disease with heart failure; I50.9 Heart failure, unspecified; W18.30XA Fall on same level, unspecified, initial encounter; Z79.82 Long term (current) use of aspirin; Z79.899 Other long term (current) drug therapy
CPT/HCPCS: 36415; 71045; 72170; 72192; 80053; 82553; 84484; 85025; 93005

== ENCOUNTER 2022-08-09 09:34 | Day surgery (SDC) | payer MEDICARE, OTHER ==
[2022-08-08 10:15] VITALS: BMI 22.3
[2022-08-09] MEDS ORDERED: Lidocaine 2% PF 5 ML VIAL ONE (10:15)
[2022-08-09] MEDS ORDERED: Bupivacaine HCl 0.5%/Epinephrine 1:200,000/PF 30 ml Vial ONE (10:15)
[2022-08-09] MEDS ORDERED: Heparin 10,000 UNITS/ 10 ML VIAL ONE (10:15)
[2022-08-09] MEDS ORDERED: Protamine Sulfate 50 MG/5 ML VIAL ONE (10:15)
[2022-08-09 10:40] LABS: #Basophils 0.1 thou/uL (0.0-0.2); #Eosinphils 0.2 thou/uL (0.0-0.7); #Lymphocytes 1.7 thou/uL (1.20-3.40); #Monocytes 0.5 thou/uL (0.11-0.59); #Neutrophils 2.9 thou/uL (1.40-6.50); %Lymphocytes 31.3 % (21.0-51.0); %Monocytes 8.8 % (0.0-10.0); %Neutrophils 53.9 % (42.0-75.0); Hemoglobin 9.8 g/dL (12.0-16.0); Mean Corpuscular HGB CONC 34.8 g/dL (32.0-36.0); Mean Corpuscular Hemoglobin 34.7 pg (27.0-31.0); Mean Corpuscular Volume 99.8 fl (78.0-98.0); Mean Platelet Volume 6.2 fL (7.4-10.4); Platelet Count 207 10x3/uL (130-400); RBC Distribution Width 15.8 % (11.5-14.5); Red Blood Cell (RBC) Count 2.81 mill/uL (4.20-5.40); White Blood Cell (WBC) Count 5.4 10x3/uL (4.8-10.8)
[2022-08-09 10:58] LABS: Anion Gap 16 mmol/L (10-20); BUN (Urea Nitrogen) 25 mg/dL (9.8-20.1); Calc. Creatinine Clearance 11 mL/min (70-130); Calcium 9.6 mg/dL (7.8-10.44); Carbon Dioxide 30 mmol/L (23-31); Chloride 96 mmol/L (98-107); Estimated GFR 9; Glucose 88 mg/dL (80-115); Potassium 4.5 mmol/L (3.5-5.1); Sodium 137 mmol/L (136-145)
[2022-08-09] MEDS ORDERED: Heparin 5,000 UNITS/ML VIAL ONE (11:01)
[2022-08-09] MEDS ORDERED: Midazolam HCl 2 mg/2 ml Vial ONE (11:04)
[2022-08-09] MEDS ORDERED: fentaNYL PF 100 MCG/2 ML SYRINGE ONE ×2 (11:05→15:12)
[2022-08-09] MEDS ORDERED: Propofol 500 MG/50 ML VIAL ONE (11:08)
[2022-08-09] MEDS ORDERED: Levofloxacin 500 mg/D5W 100 ml Premix Bag ONE (11:48)
[2022-08-09] MEDS ORDERED: Ondansetron PF 4 MG/2 ML Vial ONE (11:56)
[2022-08-09] MEDS ORDERED: Lidocaine 1% PF 5 ML VIAL ONE (11:56)
[2022-08-09] MEDS ORDERED: Metoclopramide HCl 10 MG/2 ML VIAL ONE (11:56)
[2022-08-09] MEDS ORDERED: PROPOFOL 200 MG/20 ML VIAL ONE (11:56)
[2022-08-09] MEDS ORDERED: Heparin 1,000 UNITS/ML VIAL ONE (15:59)
== END 2022-08-09 16:19 | disposition home or self-care (01) ==
LOC: SDC 09:34
PROVIDERS: ATTEND Specialist
PROC: 05SA0ZZ Reposition Left Brachial Vein, Open Approach (ICD-10-PCS; principal; 2022-08-09)
DX: I13.2 Hypertensive heart and chronic kidney disease with heart failure and with stage 5 chronic kidney disease, or end stage renal disease (principal); E11.22 Type 2 diabetes mellitus with diabetic chronic kidney disease; N18.6 End stage renal disease; I50.43 Acute on chronic combined systolic (congestive) and diastolic (congestive) heart failure; I82.612 Acute embolism and thrombosis of superficial veins of left upper extremity; E78.5 Hyperlipidemia, unspecified; F17.210 Nicotine dependence, cigarettes, uncomplicated; Z79.82 Long term (current) use of aspirin; Z79.899 Other long term (current) drug therapy; Z88.1 Allergy status to other antibiotic agents; Z95.1 Presence of aortocoronary bypass graft; Z95.810 Presence of automatic (implantable) cardiac defibrillator; Z99.2 Dependence on renal dialysis
CPT/HCPCS: 36819; 80048; 80061; 80076; 85025; C1713; C1776; 36415; J1644; J1956; J2001; J2250; J2405; J2704; J2720; J2765